=== PATIENT | male | born 1940 | race Caucasian/White ===

== ENCOUNTER 2018-04-26 23:07 | Inpatient (IN) ==
[2018-04-26] MEDS ORDERED: ZOFRAN IV ONE (23:55)
[2018-04-26] MEDS ORDERED: LOPRESSOR IV ONE (23:58)
[2018-04-27 00:13] LABS: BASO# 0.01 X1000 (0.0-0.2); BASO% 0.1 % (0.0-0.8); HEMATOCRIT 42.4 % (42.0-52.0); HEMOGLOBIN 13.6 g/dL (14.0-18.0); IMM GRAN# 0.07 X1000 (0.0-0.04); IMM GRAN% 0.6 % (0.0-0.5); LYMPH# 0.56 X1000 (1.2-3.4); LYMPH% 4.7 % (20.5-51.1); MCH 30.3 PG (27-31); MCHC 32.1 g/dL (33-37); MCV 94.4 FL (81-99); MONO# 0.84 X1000 (0.11-0.59); MPV 11.2 FL (7.4-10.4); NEUT# 10.47 X1000 (1.4-6.5); NEUT% 87.6 % (42.2-75.2); PLT 315 X1000 (130-400); RBC 4.49 XMIL (4.7-6.1); RDW 15.4 % (11.5-14.5); WBC 11.95 X1000 (4.8-10.8)
[2018-04-27] MEDS ORDERED: ROCEPHIN 1 GM in NS 50 ML IV ONE (00:16)
[2018-04-27 00:23] LABS: AGAP 12; ALB/GLOB RATIO 1.4; ALBUMIN 4.3 g/dL (3.5-5.0); ALKALINE PHOSPHATASE 59 U/L (32-122); BUN 44 mg/dL (8-22); CALCIUM 10.3 mg/dL (8.8-10.2); CHLORIDE 91 mmol/L (98-107); CK PROFILE 41 U/L (24-204); COSMO 300; ESTIMATED GFR > 60; GLUCOSE 193 mg/dL (70-104); GOT 17 U/L (10-34); GPT 24 U/L (10-44); LIPASE 41 U/L (13-60); SODIUM 142 mmol/L (136-145); TCO2 39 mmol/L (25-35); TOTAL PROTEIN 7.4 g/dL (6.3-8.3)
[2018-04-27] MEDS ORDERED: NS 1,000 ML IV SCH ×2 (00:30→03:30)
[2018-04-27] MEDS ORDERED: LASIX IV ONE (00:40)
[2018-04-27 01:53] LABS: URINE SOURCE CATH
[2018-04-27 01:56] LABS: BILIRUBIN URINE NEGATIVE (NEGATIVE); BLOOD URINE NEGATIVE (NEGATIVE); COLOR YELLOW; GLUCOSE URINE NEGATIVE (NEGATIVE); KETONE URINE NEGATIVE (NEGATIVE); LEUKOCYTES URINE NEGATIVE (NEGATIVE); NITRITE URINE NEGATIVE (NEGATIVE); PH URINE 6.5; PROTEIN URINE 30 mg/dL (NEGATIVE); SP GRAVITY URINE 1.031; TURBIDITY URINE CLEAR (CLEAR); UROBILINOGEN URINE 2 mg/dL (NORMAL)
[2018-04-27 01:58] LABS: UR EPITHELIAL CELLS <10 /HPF (<10); URINE BACTERIA NEGATIVE /HPF; URINE RBC <10 /HPF (<10); URINE WBC <10 /HPF (<10)
[2018-04-27] MEDS ORDERED: ZOSYN 4.5 GM in NS 100 ML IV ONE (03:10)
[2018-04-27] MEDS ORDERED: DIPRIVAN 1% ONE (04:57)
[2018-04-27] MEDS ORDERED: XYLOCAINE-MPF 2% ONE (04:57)
[2018-04-27] MEDS ORDERED: QUELICIN (DOSE) ONE (04:58)
[2018-04-27] MEDS ORDERED: KEFZOL 1 GM/D5W 0 GM/0 ML IVPB ONE (05:09)
[2018-04-27] MEDS ORDERED: ZOFRAN IV PRN (05:13)
[2018-04-27 05:24] LABS: URINE SOURCE CATH
[2018-04-27] MEDS ORDERED: AMMONIA AROMATIC ONE (05:28)
[2018-04-27 05:32] LABS: BILIRUBIN URINE NEGATIVE (NEGATIVE); BLOOD URINE NEGATIVE (NEGATIVE); COLOR YELLOW; GLUCOSE URINE NEGATIVE (NEGATIVE); KETONE URINE NEGATIVE (NEGATIVE); LEUKOCYTES URINE NEGATIVE (NEGATIVE); NITRITE URINE NEGATIVE (NEGATIVE); PROTEIN URINE NEGATIVE (NEGATIVE); TURBIDITY URINE CLEAR (CLEAR); UR EPITHELIAL CELLS <10 /HPF (<10); URINE BACTERIA NEGATIVE /HPF; URINE RBC <10 /HPF (<10); URINE WBC <10 /HPF (<10); UROBILINOGEN URINE NORMAL (NORMAL)
[2018-04-27] MEDS ORDERED: FENTANYL ONE (05:41)
[2018-04-27] MEDS ORDERED: EPHEDRINE ONE (06:22)
[2018-04-27] MEDS ORDERED: ALBUMIN 25% ONE ×2 (06:31)
[2018-04-27] MEDS ORDERED: VERSED ONE ×2 (06:33→07:40)
[2018-04-27] MEDS ORDERED: ZEMURON ONE (07:05)
--- NOTE | 2018-04-27 07:15 | GENERAL SURGERY CONSULTATION ---
DATE: 04/27/2018 HISTORY OF PRESENT ILLNESS: This is a 78-year-old gentleman with an extensive vascular disease history. He also has a history of bowel obstruction with perforation requiring operation in the past by Dr. Michel in 2016. He has also had mesenteric arterial stents apparently. He presents with profound nausea and vomiting over the last 24 hours with some abdominal distention and discomfort. CT scan showed pneumatosis, free air. Frances catheter and nasogastric tube were attempted to be placed in the emergency department. I was consulted. Prior to this been, he had been in his usual state of health. Apparently, he has not had much in the way of bowel function today but yesterday was normal with no blood. Abdominal pain is not severe. MEDICAL HISTORY: 1. Coronary artery disease, status post coronary artery bypass grafting. 2. Carotid stenosis and occlusion on the left. 3. Mesenteric arterial disease. 4. Chronic edema of the right lower extremity related to saphenous vein harvest. 5. BPH. 6. Congestive heart failure. 7. Dysphagia. 8. Atrial fibrillation. SURGICAL HISTORY: He has had a ventral hernia repair. He has had mesenteric artery stenting. He has had coronary artery bypass x5, saphenous vein harvest bilaterally. He has also had exploratory laparotomy with bowel resection by Dr. Michel in 2016 for a similar process. SOCIAL HISTORY: He does have a history of smoking, denies any current use. He lives at home with his . Uses a walker. FAMILY HISTORY: Reviewed and noncontributory. REVIEW OF SYSTEMS: Ten point negative. PHYSICAL EXAMINATION: Vital Signs: On exam, he is tachycardic in the 110s to 120s. Blood pressures systolics 120s to 140s. Afebrile. General: This is a chronically ill-appearing, cachectic gentleman. HEENT: There is no scleral icterus but there is temporal wasting. No cervical masses. Cardiovascular: Median sternotomy. He is tachycardic, in a regular rhythm. Pulmonary: No increased work of breathing. Abdomen: Distended. There is some tenderness throughout and it is firm. Integument: Warm and dry. Peripheral Vascular: He has chronic ischemic changes of the bilateral lower extremities with edema on the right and in an Unna wrap. Neurologic: Generalized slowing and weakness. Lymphatic: No cervical supra or infraclavicular adenopathy. Musculoskeletal: Muscle atrophy throughout. LABORATORY DATA: White count is 11, hematocrit is 42. Creatinine is 1.0. LFTs are normal. Troponins are 0.014. Urinalysis negative for nitrites and leukocytes. ASSESSMENT/PLAN: I have reviewed the CT scan. He has massive small bowel dilation but no clear transition point. There is a loop of bowel that appears to have pneumatosis in the right upper quadrant and there is free intra-abdominal air. Given these findings, I have recommended emergent operation. We will go to the operating room this morning for an exploratory laparotomy and possible bowel resection, possible ostomy. I discussed with the the possibility of prolonged intubation. I have also discussed the possibility of delayed abdominal closure. We also discussed the possibility that he has a diffuse process which would not be compatible with his ability to maintain nutritional support going forward. We discussed all these findings. They understand and consent. We will go to the operating room. He is on antibiotics. We will get a Frances catheter and we will place a nasogastric tube in the operating room as they have had difficulty here. cc: Niko Winston MD
--- NOTE | 2018-04-27 07:34 | Diag Imaging Result Doc PS360 ---
EXAM: CHEST-PORTABLE 04/26/2018 HISTORY: sob TECHNIQUE: AP portable at 2350 COMMENT: The inspiration is suboptimal and there is a large amount of gas containing-colon and distended stomach elevating the hemidiaphragms. There was a similar appearance on 02/28/2018. There is still some question of free air under the right hemidiaphragm and possibly laterally under the left hemidiaphragm but this has diminished since the previous study. IMPRESSION: Improved pneumoperitoneum. Possible ileus, stable. Electronically signed by Lan Robin 04/27/2018 7:32 AM
--- NOTE | 2018-04-27 08:19 | HISTORY AND PHYSICAL ---
PRIMARY CARE PHYSICIAN: Dr. Aditya Jennings DATE AND TIME: 04/27/2018 at 0300. CHIEF COMPLAINT: Vomiting. HISTORY OF PRESENT ILLNESS: Mr. Page is a 78-year-old elderly male who presented to the ER at 11 p.m. on 04/26/2018. His , who was present at bedside did assist with much of the history of present illness and past medical history, informed me that all day Saturday, the patient had not felt well. He had been nauseated. She states later on in the afternoon that she did try to give him something to eat, though he did have a few episodes of vomiting after this. She denied him having any hematemesis or coffee-ground appearance to his emesis. She also reports as well that the patient's abdomen has had worsening distention, though the patient denies any abdominal pain or pain upon palpation of his abdomen. She states that for a couple of days he had been constipated and had difficulty having a bowel movement. She states that he did eventually have a bowel movement on Saturday, though he did have to strain a lot to do so. The patient as well as his denied him having any melena, hematochezia or melena. The patient states that he has not been able to pass gas since earlier in the day on Saturday, which would be 04/26/2018. The patient denies any headache, dizziness or chest pain. He does report that he occasionally has shortness of breath, though he states this is not of new onset and has not worsened. He denies any cough. He denies any fever, body aches or chills. He also denies any dysuria or urinary frequency. The patient has been treated by Dr. Carbajal recently for some right lower extremity swelling. The patient does have some known vascular disease and has had problems with his right lower extremity swelling since he has had vessels grafted from this extremity for his coronary artery bypass graft. The patient did have a wrap on his right lower extremity from just inferior to his knee all the way down just proximal to his toes. Though upon assessment, the patient's toes did appear to be somewhat purple in color. He did have delayed capillary refill at approximately 7 to 8 seconds. The patient denied any decreased sensation and did still have movement in his toes, though after loosening the Presley wrap up some, the patient's color in his toes as well as his capillary refill did improve. It did improve from approximately 7 to 8 seconds to 4 seconds. The patient also does have a right shoulder immobilizer in place as well. Unfortunately, he was just in the ER by Dr. Jennings on secondary to a fall and was diagnosed with fracture of the humeral head with inferior subluxation. The patient at this time does have pulse, motor and sensory intact in his right hand distal to his immobilizer. Upon further questioning, it is noted the patient has had a history of 5-vessel coronary artery bypass graft as well as paroxysmal atrial fibrillation and does have a history of having stenting of the superior mesenteric artery. The patient also does take anticoagulant of Pradaxa. His reports that he had his last dose on Saturday morning, 04/26/2018. Upon evaluation in the ER, the patient was noted to be ill appearing. He does have a distended abdomen noted. This is slightly firm to palpation. He did have some bowel sounds present, though these were hypoactive. The patient, surprisingly, was not tender in his abdomen upon palpation. He was still experiencing some occasional nausea, though has not had any vomiting episodes since arriving to the ER. A chest x-ray was performed in the ER, and the lungs themselves did appear to be clear and did not see any signs of pneumonia, pulmonary vascular congestion or pulmonary edema at this time, though it was apparent that he did have some distended loops of bowel present. Secondary to this, they did perform a CT of abdomen and pelvis which did show that the patient had free air in the peritoneal cavity highly suspicious for bowel perforation. He does have pneumatosis in the right upper quadrant suggesting acute bowel ischemia. There was also mention of some moderate free fluid in the pelvis as well. He did also have a small right pleural effusion as well as infiltrates in the posterior lower lobes and early pneumonia versus aspiration could not be excluded. Please see full CT report for further detailed findings. The patient does have mildly elevated white blood cell count at 11,950. His lactate was elevated at 2. His ProBNP was also elevated at 9433, though at this time the patient does not appear to be in any fluid overload or CHF exacerbation. His oral mucosa was actually slightly dry. He did not have any JVD present. Though his lung sounds were diminished in bilateral bases, he did not have any crackles noted. He has denied any chest pain or current shortness of breath. He does not have any peripheral edema present. Given his abnormal CT findings, Dr. Winston was immediately consulted. Dr. Winston did come in at the bedside and examined and spoke to the patient and does plan to take him for surgery this morning for an exploratory laparotomy with possible bowel resection and ostomy. The patient will be placed in the ICU after surgery for close monitoring. REVIEW OF SYSTEMS: A 14-point review of systems was conducted with the patient, and all were negative except for pertinent positives mentioned in the above HPI. PAST MEDICAL HISTORY: 1. Paroxysmal atrial fibrillation. 2. Ischemic heart disease. 3. Congestive heart failure. 4. Essential hypertension. 5. Hyperlipidemia. 6. Idiopathic pneumatosis intestinalis. 7. Dysphagia. PAST SURGICAL HISTORY: 1. Subtotal colon resection. 2. Stenting of the superior mesenteric artery. 3. Cholecystectomy. 4. Inguinal hernia repair. 5. Five-vessel coronary artery bypass graft. SOCIAL HISTORY: The patient is a former smoker. His said he smoked many, many years ago and smoked for a period of approximately 20 years. There is no other known alcohol or illicit drug use. He is and lives with his . She was present at bedside during my examination. The patient does use assistive devices with ambulation. FAMILY HISTORY: Known for both his mother and father having a history of arthritis, but other than this, there is no other known past medical history in his parents, though he does have 2 other brothers who both have had a history of coronary artery bypass graft. ALLERGIES: The patient has no known allergies. HOME MEDICATIONS: 1. Vitamin D3 1000 units p.o. b.i.d. 2. Vitamin B12 1000 mcg p.o. b.i.d. 3. Pradaxa 150 mg p.o. b.i.d. 4. Proscar 5 mg p.o. daily. 5. Lasix 40 mg p.o. p.r.n. as directed. 6. Boost nutritional drink 237 mL p.o. b.i.d. 7. Multivitamin with minerals 1 p.o. daily. 8. Protonix 40 mg p.o. daily. 9. Ranexa 1000 mg p.o. b.i.d. 10.Flomax 0.4 mg p.o. daily. 11.Ultram 50 mg p.o. q.6 hours p.r.n. 12.CoQ-10 50 mg p.o. b.i.d. DIAGNOSTIC DATA: White blood cell count is 11,950, hemoglobin 13.6, hematocrit 42.4, platelet count 315. Sodium is 142, potassium 5, chloride 91, serum bicarb is 39, BUN is 44, creatinine 1, GFR greater than 60, glucose is 193, calcium 10.3. Liver function tests were within normal limits. CK is 41. Troponin is 0.014. ProBNP is 9433. Lipase is 41. Plasma lactate is 2. Urinalysis was obtained via catheter and was positive for protein, though was negative for glucose, ketones, blood, nitrites, leukocytes, white blood cells or bacteria. EKG did show sinus tachycardia with occasional premature atrial complexes. This is at a rate of 115 with a QTC of 520. Chest x-ray did not appear to have any acute chest abnormalities, though he did have a distended bowel that was noted. CT of abdomen and pelvis did show free air in the peritoneal cavity highly suspicious for bowel perforation. He also had pneumatosis in the right upper quadrant suggesting acute bowel ischemia. He also did have small right pleural effusion, infiltrates in the posterior lower lobes, suspicious for early pneumonia versus aspiration. Please see CT report for full detailed findings. PHYSICAL EXAMINATION: VITAL SIGNS: Temperature is 97.9, heart rate 115, blood pressure 94/68, oxygen saturation is 93% on nasal cannula at 2 L, respirations were 20. GENERAL: Mr. Page is a very pleasant elderly, frail and ill-appearing 78-year-old male. He was resting on the ER stretcher. He was awake, alert and able to answer questions appropriately. HEENT: Head is atraumatic and normocephalic. Pupils are equal, round and reactive to light, were 3 mm bilaterally and brisk. Conjunctivae were pink. Oral mucosa was slightly dry. Oropharynx was clear, except the patient did have a small amount of blood noted to his right posterior pharynx, though just prior to my examination, they had attempted an NG tube. This is likely what this presence of blood is related to. NECK: Supple. Trachea midline. There is no JVD noted. CARDIOVASCULAR: The patient has S1 and S2 present. There were no murmurs, gallops or rubs appreciated, with a tachycardic rate that is regular. On the bedside monitor, the patient's rate is elevated to the 100s and low 110s. Though he does appear to have a regular rate, the R to R is regular. There does appear to be P waves for the QRS. PULMONARY: The patient does have symmetrical chest expansion bilaterally. Lung sounds in bilateral upper conroy were clear to auscultation, though he is diminished in bilateral bases. ABDOMEN: Slightly firm. It is distended, though was surprisingly nontender upon palpation. Bowel sounds were present though were hypoactive. EXTREMITIES: No clubbing or edema noted. Upon my examination, the patient does have a wrap noted to his right lower extremity that he has had placed by home health that has been assisting with some swelling in this extremity, though the patient did have some purple discoloration noted to the toes of his right foot. We did loosen the patient's wrap, and once done so, the patient's discoloration as well as capillary refill did improve. Prior to this, it was 7 to 8 seconds. Since loosening his wrap, it is approximately 4 seconds. The patient does have motor and sensation intact in this extremity as well. All other extremities were within normal limits. Radial pulses were 2+ bilaterally. Pulse in his left lower extremity was difficult to palpate though was easily obtainable with venous Doppler. NEUROLOGICAL: The patient is alert and oriented to person, place and time. He was able to answer questions appropriately and follow commands. He does not appear to have any focal neurological deficits noted at this time. ASSESSMENT AND PLAN: 1. Possible bowel perforation. The patient's CT of abdomen and pelvis did show free air in the peritoneal cavity that was highly suspicious for bowel perforation. He also had pneumatosis in the right upper quadrant suggestive of possible acute bowel ischemia. Dr. Winston with Surgery has been consulted. He is planning to take the patient to surgery within the next hour or so. The patient has remained n.p.o. The ER nurse did attempt twice to place an NG tube which was unsuccessful. The patient has not had any episodes of nausea or vomiting at this time, and we have decided to hold off with further attempts until the patient goes to surgery. We have placed him with antibiotic coverage of Zosyn. We will provide some gentle fluid hydration. Blood cultures have been obtained, and we will await further recommendations from Dr. Winston and follow along closely. 2. History of paroxysmal atrial fibrillation. At this time, the patient does appear to be in sinus tachycardia, though we will continue to monitor closely. 3. History of coronary artery disease, status post coronary artery bypass graft. 4. History of congestive heart failure, though the patient at this time does not appear to be in exacerbation, though we will monitor his fluid volume status closely with strict intake and output. 5. History of hypertension. 6. Possible pneumonia. It was noted on the patient's CT that he did have a small right pleural effusion. There were infiltrates in the posterior lower lobes, and an early pneumonia versus aspiration could not be excluded. Given the possibility of aspiration, we will continue with antibiotic treatment as mentioned above with Zosyn. Blood cultures have been obtained. We will continue to follow. The patient has been placed in the ICU for close monitoring. We will repeat a CBC and BMP later on this morning as well as an echocardiogram. GI prophylaxis provided with Protonix. We will defer DVT prophylaxis to Surgery Team. Further orders and recommendations pending hospital course, diagnostic studies and physician evaluation. Critical care time for this patient was approximately 70 minutes. Dictated by CHANA Woodruff for Romel Love MD Addendum: Patient seen and examined by myself. Agree with CHANA note. It reflects my assessment and plan. Patient is being admitted to hospital for possible bowel perforation. Surgery has been notified and will be coming to see this patient quickly. Will start IV antibiotics. Will place him on NPO and continue to monitor this patient closely. cc: Romel Love MD MTDD
[2018-04-27] MEDS ORDERED: NS 1,000 ML ONE (08:27)
[2018-04-27] MEDS ORDERED: DIPRIVAN 1% 1,000 MG/100 ML BOTTLE IV SCH (08:30)
[2018-04-27 08:39] LABS: ALLEN TEST YES; BE 10.4 mmoll (-3.0-3.0); BLOOD TYPE ARTERIAL; METHB 1.1 % (0.0-1.5); O2(CT) 17.1 mL/dL (15.0-23.0); O2HB 96.3 % (95.0-99.0); PO2(98.6) 118 mmHg (60-100); SAMPLE BLOOD; SAO2 98.4 % (95.0-100.0); SRATE 14 BPM; THB 12.5 g/dL (11.5-17.4); TVOL 500 mL; pH(98.6) 7.45 (7.35-7.45)
[2018-04-27 08:40] LABS: MODALITY VENTILATOR; PCO2(98.6) 52 mmHg (35-45)
[2018-04-27] MEDS ORDERED: LR 500 ML ONE (08:41)
--- NOTE | 2018-04-27 08:48 | Diag Imaging Result Doc PS360 ---
EXAM: CT ABD/PELVIS W/IV CONT ONLY 04/27/2018 HISTORY: abdominal distension, tenderness TECHNIQUE: This exam was performed using automated exposure control, adjustment of mA or kV according to patient size, and/or use of iterative reconstruction technique. COMMENT: The current examination is compared with the previous study of 11/20/2016. There is apparent atelectasis in both lower lobes particularly posteriorly. This is worse than on the previous examination. There may be some bronchiectasis. There is a small amount of free air in the abdomen. This is much worse at the time the previous examination and has been seen on previous chest radiographs including the study of 02/28/2018. The stomach is markedly distended. This is worse than on the previous study. There is extensive atherosclerotic calcification in the aorta which is not distended. The inferior mesenteric artery is patent. The celiac artery is patent although with some calcification. There is opacification of the ostium of the superior mesenteric artery with a stent. It is not clear that this is patent, however the portion of the artery directly distal to the stent is opacified with contrast. There are multiple fluid and gas distended loops of small bowel and colon. The descending colon is relatively normal in caliber. The spleen adrenal glands and pancreas are stable in appearance. There is a large cyst arising from the right kidney. There is no evidence of hydronephrosis stones or masses and the kidneys are similar in appearance to the previous noncontrast study. The liver is displaced posteriorly and somewhat compressed by the distended bowel loops but there is no evidence of acute abnormality. This appearance was also present previously although it is somewhat more dramatic on today's study. There is solid stool throughout much of the colon particularly the left colon. There is no definite evidence of mucosal fold thickening in the massively distended small bowel loops. There is a loop of small bowel present in the upper abdomen slightly to the right of the midline which appears to be surrounded by fibrin strands surrounding gas extending from loop to loop. This may indicate a chronic pneumatosis/interstitial emphysema. The esophagus contains fluid. The possibility of reflux cannot be excluded. Pelvis: The regional skeleton is stable in appearance. There is some free fluid in the rectovesical pouch as there was at the time the previous study. IMPRESSION: 1. From the images and reports from previous imaging going back to the examination of 11/20/2016 and plain radiographs as recent as 02/28/2018, the pneumoperitoneum is apparently chronic and has been worse in the past. There is actual constipation in the left colon. There are however massively distended small bowel loops indicating chronic obstruction, apparently partial. The site of obstruction is probably in the subphrenic region in the right upper quadrant. This is the loop associated with pneumatosis. 2. There is bibasilar atelectasis of versus pneumonia, and given the fluid in the esophagus the possibility of aspiration is suggested. Aspiration has been previously documented on modified barium swallow on 02/14/2018. Electronically signed by Lan Robin 04/27/2018 8:46 AM
--- NOTE | 2018-04-27 08:53 | Diag Imaging Result Doc PS360 ---
EXAM: CHEST-1 VIEW 04/27/2018 HISTORY: ETT,cvl placement TECHNIQUE: AP portable at 0836 COMMENT: There is an NG tube with its tip in the stomach. There is an endotracheal tube with its tip at the thoracic inlet. There is pneumoperitoneum as there has been on previous studies. There is atelectasis versus pneumonia in both lower lobes. This is particularly notable in the right lower lobe. IMPRESSION: Pneumoperitoneum. Bibasilar atelectasis versus pneumonia. Electronically signed by Lan Robin 04/27/2018 8:51 AM
--- NOTE | 2018-04-27 08:56 | OPERATIVE NOTE ---
PROCEDURE DATE: 04/27/2018 PREOPERATIVE DIAGNOSES: 1. Small-bowel obstruction. 2. Pneumoperitoneum. POSTOPERATIVE DIAGNOSIS: Cecal volvulus causing small-bowel obstruction. PROCEDURES PERFORMED: 1. Exploratory laparotomy. 2. Small-bowel resection. 3. Ileocecectomy. 4. Resection of abdominal wall mesh. 5. Right femoral vein triple-lumen catheter. ANESTHESIA: General. ESTIMATED BLOOD LOSS: 100 mL. SPECIMENS: 1. Terminal ileum. 2. Cecum. INDICATIONS: A 78-year-old gentleman who had an exploratory laparotomy with bowel resection and primary anastomosis approximately 3 years ago. He presented with free air at that time. OPERATIVE FINDINGS: 1. There was massively dilated small-bowel and stomach all the way to the terminal ileum. The cecum was dilated. There was pneumatosis, mostly within the ileum and distal small-bowel. There was no evidence of free perforation and there was no succus or contamination within the abdomen. The cecum was dilated and there appeared to be a transition point in the ascending colon. 2. This final specimen length of small-bowel was 100 cm in the second specimen. The cecum and ascending colon were included in that. OPERATIVE NOTE: Risks, benefits, and alternatives were discussed with the patient and his . He consented to the procedure. He was taken to the operating room emergently. His previous midline incision was incised after he was prepped and draped with chlorhexidine in the usual fashion. We carried this down through subcutaneous tissue and the fascia. There was mesh in the upper midline that we excised and entered the abdomen. There was free air noted. We eviscerated the small-bowel. There was no significant intra-abdominal adhesions but it became apparent that the cecum was in the right upper quadrant of the abdomen. We reduced this. We systematically ran the bowel multiple times. All the small-bowel was distal but this did encompass quite a large area. We resected this. After we passed this specimen off, we did this with a JEREMY blue load stapler, we divided the mesentery with the LigaSure device. We elected with this part of a second resection to resect the ascending colon given the fact that this was felt to be the source of obstruction and we passed this off. We made an ileostomy site in the right lower quadrant through the rectus muscle and brought the ileum out, and then removed a corner of the staple line and decompressed the bowel distally through this. Almost a liter of succus was expressed. We then, in a retrograde fashion, decompressed the stomach through a nasogastric tube. We irrigated the abdomen copiously, noted hemostasis, placed the small-bowel back, ensured that there was no twisting of his ileostomy. At this point, we began closing the fascia with a #1 running looped PDS suture. We did use #2 Prolene retention sutures. His abdomen closed well. We irrigated the superficial wound. We did change our gloves prior to wound closure and reapproximated the skin with surgical clips. We made sure there was no bowel incorporated with any of our sutures prior to abdominal closure. Dressing was applied. At this point, we removed the staple line from his ileostomy and matured it with interrupted 3-0 Vicryl sutures in [place] fashion. Ostomy appliance was applied. Counts were correct for this portion of the operation. His blood pressures were quite labile during the case, requiring vasopressors and fluid resuscitation. He was oliguric during it. We elected to place a central line at the conclusion of the case. Prepped his right groin and draped it. A triple-lumen 7-[place] catheter was selected. The femoral artery pulse was palpated. We accessed the vein medial to this. The wire threaded easily. Skin jania was made. The tract was dilated. A pre-flushed triple-lumen catheter was advanced and secured with a silk suture. Dressing was applied. All ports withdrew blood and flushed without resistance. He was transferred, intubated, back to the ICU. I spoke with the family. cc: Niko Winston MD [facility]
[2018-04-27] MEDS: ZOSYN 2.25 GM in NS 50 ML IV SCH ×3 (10:00→20:37)
[2018-04-27] MEDS: PROTONIX IV SCH (10:00)
[2018-04-27] MEDS: SODIUM CHLORIDE 0.9% INJ SCH (10:00)
[2018-04-27 10:46] LABS: BASO# 0.01 X1000 (0.0-0.2); BASO% 0.1 % (0.0-0.8); HEMATOCRIT 36.4 % (42.0-52.0); HEMOGLOBIN 11.4 g/dL (14.0-18.0); LYMPH# 0.73 X1000 (1.2-3.4); LYMPH% 9.8 % (20.5-51.1); MCH 30.4 PG (27-31); MCHC 31.3 g/dL (33-37); MCV 97.1 FL (81-99); MONO# 0.72 X1000 (0.11-0.59); MONO% 9.6 % (1.7-9.3); MPV 11.1 FL (7.4-10.4); NEUT# 6.02 X1000 (1.4-6.5); NEUT% 80.5 % (42.2-75.2); PLT 350 X1000 (130-400); RBC 3.75 XMIL (4.7-6.1); RDW 15.3 % (11.5-14.5); WBC 7.48 X1000 (4.8-10.8)
[2018-04-27 11:08] LABS: AGAP 18; BUN 48 mg/dL (8-22); CHLORIDE 92 mmol/L (98-107); COSMO 290; CREATININE 0.9 mg/dL (0.7-1.2); ESTIMATED GFR > 60; GLUCOSE 129 mg/dL (70-104); SODIUM 138 mmol/L (136-145); TCO2 28 mmol/L (25-35)
[2018-04-27] MEDS: LR 1,000 ML IV SCH ×2 (11:52→18:21)
[2018-04-27] MEDS ORDERED: NS 500 ML IV ONE ×3 (12:46→22:34)
[2018-04-27] MEDS: LEVOPHED 8 MG in D5 1/2 NS 250 ML IV SCH ×2 (13:28→20:37)
--- NOTE | 2018-04-27 13:46 | PROGRESS NOTE ---
DATE: 04/27/2018 This is a 78-year-old patient Dr. Aditya Jennings he was admitted last night. Presented to the ER 11 p.m. on 04/26/2018, apparently all day yesterday on Saturday he had not felt well, was nauseated, later in the afternoon she tried to give him something to eat had a few episodes of vomiting after this. Denied having any hematosis a or coffee-ground appearance in the emesis. She reports that patient's abdomen was worsening distention and patient denied any abdominal pain on palpation his abdomen. Had a couple days difficulty with his bowel movement. He has been treated by Dr. Carbajal recently for right lower extremity swelling. He does have known peripheral vascular disease. PAST MEDICAL HISTORY: 1. Paroxysmal atrial fibrillation. 2. Ischemic heart disease. 3. Congestive heart failure. 4. Essential hypertension. 5. Hyperlipidemia. 6. Idiopathic pneumatosis intestinalis. 7. Dysphagia. PAST SURGICAL HISTORY: 1. Subtotal colon resection. 2. Stenting of the superior mesenteric artery, mesenteric ischemia. 3. Cholecystectomy. 4. Inguinal hernia repair. 5. Five-vessel coronary bypass graft. 1. He apparently was taken from the emergency room to surgery. CT of the abdomen and pelvis did show free air in the peritoneal cavity. Dr. Winston reported that it look like it was a volvulus and sigmoid colon and was causing pressure in the small bowel with perforation so he did remove part the small bowel and has a colostomy. 2. History of paroxysmal atrial fibrillation and so he is on a monitor. 3. He is on the ventilator and sedated at this time. 4. Congestive heart failure history. 5. History of hypertension. 6. Possible pneumonia, possible aspiration pneumonia. EXAM: At the present temperature is 98.2 degrees, pulse 100, respirations 14, blood pressure 86/53. Pupils are equal. No distended neck veins.Lungs: Anterolateral were clear. He is intubated. Abdomen: Negative bowel sounds. Surgical scar, the gauze are dry. No pedal edema. Urine output has been around 20 mL/h so we are given quite a bit of fluid lactated Ringers. ASSESSMENT AND PLAN: 1. Resection of the terminal ileum, had exploratory laparotomy and has an ileocecectomy and resection of abdominal wall mesh. Continue broad-spectrum antibiotics. 2. On the ventilator, will wean as able. Pulmonary is involved. 3. History of coronary artery disease status post coronary bypass, aware. No sign of active ischemia. 4. History of congestive heart failure. Looking back, he had a catheterization done back in April 2014 and his left ventricular function at that time ejection fraction estimated about 45 to 50 percent. He did have severe calcific occlusive coronary artery disease, left main and right coronary artery proximally so has known multivessel coronary disease. I reviewed his current orders. He is getting lactated Ringer's at 125 mL an hour. I gave him a 400 mL bolus of normal saline to try to help with the urine output. He is on Zosyn 2.25 g IV q.6 and he got 1 dose of ceftriaxone before surgery. We are going to send a sputum for culture. His hematocrit postop was 36, hemoglobin 11 and his creatinine is 0.9. Sodium 138, potassium 5.0, chloride 92, BUN 48. I have explained to the family that he has multiple morbidities and he is very sick at this point with underlying peripheral vascular disease, coronary artery disease and apparently major surgery and at present vent dependent. cc: MD Laura Chance MD
--- NOTE | 2018-04-27 14:33 | CARDIOLOGY CONSULTATION ---
DATE: 04/27/2018 HISTORY OF PRESENT ILLNESS: Patient is status post abdominal surgery, change in electrocardiogram. Cardiology was consulted. Baseline electrocardiogram revealed normal sinus rhythm, right bundle branch block, right ventricular hypertrophy. Postoperative electrocardiogram revealed normal sinus rhythm, right bundle branch block with left axis deviation. No ST-T changes to suggest any acute changes. Cardiac enzymes unremarkable. Patient is intubated postoperatively; history was obtained from the chart. The patient is intubated, sedated. Patient is admitted with bowel obstruction. A CT scan of his abdomen revealed pneumoperitoneum, massively dilated small bowel, chronic obstruction, bilateral lid atelectasis versus pneumonia in the lungs, aspiration suggested. The patient underwent surgery. Postoperative diagnosis of cecal volvulus causing small bowel obstruction. REVIEW OF SYSTEMS: Could not be obtained from the patient. PAST MEDICAL HISTORY: 1. Paroxysmal atrial fibrillation. 2. Ischemic cardiomyopathy. 3. History of heart failure. 4. Hypertension. 5. Coronary artery disease, status post 5 vessel coronary artery bypass grafting. 6. Cholecystectomy. 7. Stenting of the superior mesenteric artery and mesenteric ischemia in the past. 8. Subtotal colonic resection. 9. Currently the patient also has possible pneumonia. CURRENT MEDICATIONS: Propofol drip, Levophed, Protonix drip, piperacillin, Lasix 40 mg 1 does given. Was also given ceftriaxone, IV fluids. PHYSICAL EXAMINATION: Vital Signs: Blood pressure 106/46. Patient is intubated. Cardiovascular system: First and second heart sounds were heard. There was no S3 gallop. Respiratory system: Anterolateral were clear. ASSESSMENT AND PLAN: 1. Mr. Otis Page is a 78-year-old gentleman with a history of hypertension, congestive heart failure, ischemic cardiomyopathy, coronary artery disease, coronary artery bypass grafting, history of paroxysmal atrial fibrillation, has presented with abdominal bowel obstruction. Underwent surgery today with cecal volvulus as the postoperative diagnosis causing small bowel obstruction. Patient also has had pneumonia, likely aspiration pneumonia. From a cardiac standpoint, no significant change in the electrocardiogram other than the axis. We will monitor along. 2. We will get an echocardiogram to assess cardiac and valvular function. 3. He is immediate postoperative. I have not made any other addition to his medications. 4. For his pneumonia, continue with his antibiotics. 5. He is hypotensive post surgery. He is on Levophed drip. Would recommend continue with the current plan. Thanks for the consult. cc: MD Laura Brooks MD
[2018-04-27 15:20] LABS: URINE SOURCE CATH
[2018-04-27 15:28] LABS: BILIRUBIN URINE NEGATIVE (NEGATIVE); BLOOD URINE LARGE (NEGATIVE); COLOR YELLOW; GLUCOSE URINE NEGATIVE (NEGATIVE); KETONE URINE NEGATIVE (NEGATIVE); LEUKOCYTES URINE NEGATIVE (NEGATIVE); NITRITE URINE NEGATIVE (NEGATIVE); PROTEIN URINE 30 mg/dL (NEGATIVE); SP GRAVITY URINE > 1.050; TURBIDITY URINE HAZY (CLEAR); UR EPITHELIAL CELLS <10 /HPF (<10); URINE BACTERIA NEGATIVE /HPF; URINE RBC TNTC /HPF (<10); URINE WBC <10 /HPF (<10); UROBILINOGEN URINE NORMAL (NORMAL)
[2018-04-27] MEDS: NS 500 ML IV SCH (15:45)
[2018-04-27] MEDS ORDERED: ATIVAN IV PRN (16:18)
[2018-04-27] MEDS ORDERED: ATIVAN 20 MG in NS 190 ML IV SCH (16:30)
[2018-04-27] MEDS: ATIVAN 20 MG in NS 190 ML IV SCH (17:30)
--- NOTE | 2018-04-27 18:49 | CONSULTATION ---
DATE OF CONSULTATION: 04/27/2018 REQUESTING PROVIDER: Dr. Anders Winston. REASON FOR CONSULTATION: Intubated. Possible pneumonia. HISTORY OF PRESENT ILLNESS: This is a 78-year-old male with medical history of idopathic pneumatosis intestinalis, paroxysmal atrial fibrillation, ischemia cardiomyopathy, congestive heart failure, essential hypertension, coronary artery disease, hyperlipidemia, dysphagia and arthritis. He presented to the ER last night with nausea and vomiting. Initial workup in the ER revealed possible bowel perforation with pneumatosis in the right upper quadrant suggestive of possible acute bowel ischemia and possible pneumonia. He has been admitted to the ICU for further evaluation and management. He underwent an emergent surgery early this morning by Dr. Winston, including exploratory laparotomy, small-bowel resection, ileocecectomy, resection of abdominal wall mesh and right femoral vein triple-lumen catheter. At the time of my examination, patient has been transferred back to the ICU. He is intubated and sedated. The patient's brother and aunt are at the bedside. They reported that the patient fell recently on 04/24/2018 and last night when the patient's was feeding him supper, he suddenly complained of severe abdominal pain and he also had nausea and vomiting. PAST MEDICAL AND SURGICAL HISTORY: 1. Idiopathic pneumatosis intestinalis 2. Paroxysmal atrial fibrillation. 3. Ischemic cardiomyopathy. 4. Congestive heart failure. 5. Hypertension. 6. Coronary artery disease status post 5-vessel coronary artery bypass grafting. 7. Hyperlipidemia 8. Dysphagia 9. Arthritis 10. Recent fall on 04/24/2018 with fracture of the humeral head with inferior subluxation 11. Cholecystectomy. 12. Stenting of the superior mesenteric arterial and mesenteric ischemia in the past. 13. Subtotal colonic resection. 14. Inguinal hernia repair. SOCIAL HISTORY: Per H&P, The patient is a former smoker. He smoked about 20 years. He has no alcohol or tobacco use. FAMILY HISTORY: Positive for arthritis and heart disease. ALLERGIES: No known drug allergies. REVIEW OF SYSTEMS: Unable to be obtained. PHYSICAL EXAMINATION: Vital Signs: Temperature 97.9, blood pressure 132/51, pulse 102, respiratory rate 14, oxygen saturation 100% on AC mechanical ventilator with spontaneous rate 14, oxygen FiO2 80%, tidal volume 500, and PEEP 5.0. General: Patient is intubated and sedated. He moves his right upper extremity occasionally, but he is not responsive to verbal stimuli. HEENT: Atraumatic. Trachea midline. Mucosa pink and slightly dry. Respiratory: Lung expansion equal bilaterally. Auscultation revealed diminished breathing sounds bibasilarly. Otherwise, clear . Cardiovascular: Regular rate and rhythm. Gastrointestinal: No bowel sounds noted. The patient had an abdominal surgery done this morning. Dressing around the surgical area is dry and clean. Extremities: No pedal edema. Right lower extremity is covered with dressing from the ankle up to the knee. Toes on the right foot cyanotic and cold to touch. RUE bruising all over. Joints of the fingers enlarged, suggesting severe arthritis. Neurologic: Sedated and unresponsive to verbal stimuli. He did move his left upper extremity at times. ASSESSMENT: This is a 78-year-old male with medical history of idopathic pneumatosis intestinalis, paroxysmal atrial fibrillation, ischemia cardiomyopathy, congestive heart failure, essential hypertension, coronary artery disease, hyperlipidemia, dysphagia and arthritis. He has been admitted to the ICU with possible bowel perforation and possible pneumonia. He underwent an emergent abdominal surgery this morning by Dr. Winston. 1. Acute hypoxemic respiratory failure. 2. Resection of the terminal ileum. 3. Possible pneumonia. 4. Shock status post surgery. PLAN: 1. Continue AC mechanical ventilator and start weaning trials when appropriate. 2. Continue antibiotics, fluid resuscitation and pressors. 3. Start CVP monitoring 4. Follow up with ABG, CBC, BMP and chest x-ray. 5. Consult orthopedic clinic. 6. Continue GI and DVT prophylaxis. 7. Further recommendations pending hospital course. Thank you for the courtesy of this consult. Dictated by CHANA Samson for Valeria Hicks MD cc: CHANA Samson MD M. Neel Roberts, MD [facility]
[2018-04-28] MEDS: LR 1,000 ML IV SCH ×4 (01:00→20:37)
[2018-04-28] MEDS: ATIVAN 20 MG in NS 190 ML IV SCH (03:25)
[2018-04-28] MEDS: ZOSYN 2.25 GM in NS 50 ML IV SCH ×4 (03:29→20:37)
[2018-04-28 04:44] LABS: ALLEN TEST YES; BE 9.8 mmoll (-3.0-3.0); BLOOD TYPE ARTERIAL; HCO3-(ACT) 32.5 mmoll (20.0-26.0); METHB 1.1 % (0.0-1.5); O2(CT) 16.4 mL/dL (15.0-23.0); O2HB 95.6 % (95.0-99.0); PCO2(98.6) 45 mmHg (35-45); PO2(98.6) 93 mmHg (60-100); SAMPLE BLOOD; SAO2 97.8 % (95.0-100.0); SRATE 14 BPM; THB 12.1 g/dL (11.5-17.4); TVOL 500 mL; pH(98.6) 7.49 (7.35-7.45)
[2018-04-28 04:45] LABS: MODALITY VENTILATOR
[2018-04-28] MEDS: LEVOPHED 8 MG in D5 1/2 NS 250 ML IV SCH ×2 (05:06→11:53)
[2018-04-28] MEDS: PROTONIX IV SCH (05:39)
[2018-04-28 06:05] LABS: BASO# 0.01 X1000 (0.0-0.2); BASO% 0.1 % (0.0-0.8); EOS# 0.05 X1000 (0.0-0.7); EOS% 0.4 % (0.0-10.0); HEMATOCRIT 33.8 % (42.0-52.0); HEMOGLOBIN 10.9 g/dL (14.0-18.0); IMM GRAN# 0.04 X1000 (0.0-0.04); IMM GRAN% 0.3 % (0.0-0.5); LYMPH# 0.88 X1000 (1.2-3.4); LYMPH% 6.7 % (20.5-51.1); MCH 29.8 PG (27-31); MCHC 32.2 g/dL (33-37); MCV 92.3 FL (81-99); MONO# 0.97 X1000 (0.11-0.59); MONO% 7.4 % (1.7-9.3); NEUT# 11.22 X1000 (1.4-6.5); NEUT% 85.1 % (42.2-75.2); PLT 292 X1000 (130-400); RBC 3.66 XMIL (4.7-6.1); RDW 15.2 % (11.5-14.5); WBC 13.17 X1000 (4.8-10.8)
[2018-04-28 06:35] LABS: CALCIUM 8.6 mg/dL (8.8-10.2); CREATININE 1.4 mg/dL (0.7-1.2)
--- NOTE | 2018-04-28 07:06 | EKG Report ---
Test Performed on : 04/28/2018 06:49:23 AM Test Reason : post surgery/ cabg Blood Pressure : / mmHG Vent. Rate : 113 BPM Atrial Rate : 113 BPM P-R Int : 122 ms QRS Dur : 130 ms QT Int : 350 ms P-R-T Axes : 048 -78 066 degrees QTc Int : 480 ms Sinus tachycardia. with premature atrial complexes. Left axis deviation Right bundle branch block Inferior infarct , age undetermined Abnormal ECG When compared with ECG of 27-APR-2018 07:19, (Unconfirmed) Questionable change in QRS axis Criteria for Lateral infarct are no longer present T wave inversion no longer evident in Inferior leads Unconfirmed Result
--- NOTE | 2018-04-28 07:35 | EKG Report ---
Test Performed on : 04/26/2018 11:57:53 PM Test Reason : pain Blood Pressure : / mmHG Vent. Rate : 115 BPM Atrial Rate : 115 BPM P-R Int : 134 ms QRS Dur : 138 ms QT Int : 376 ms P-R-T Axes : 056 269 028 degrees QTc Int : 520 ms Sinus tachycardia. with premature atrial complexes. Right bundle branch block , plus right ventricular hypertrophy Abnormal ECG When compared with ECG of 28-FEB-2018 15:06, (Unconfirmed) premature ventricular complexes. are no longer present Unconfirmed Result
--- NOTE | 2018-04-28 07:55 | Diag Imaging Result Doc PS360 ---
EXAM: CHEST-1 VIEW INDICATION: SOB TECHNIQUE: One view COMPARISON: 04/27/2018 FINDINGS: Support tubes and lines are in stable positions. Atelectasis and/or pneumonia at the lung bases, particularly on the right, is stable. No new consolidation is identified. Cardiac silhouette is stable. There is stable pneumoperitoneum. IMPRESSION: Stable chest. Electronically signed by Natanael Whitley 04/28/2018 7:53 AM
[2018-04-28] MEDS: MORPHINE IV PRN ×2 (08:32→12:36)
[2018-04-28 08:41] LABS: BANDS 22 % (0-1); LYMPHS 10 % (21-51); SEGS 64 % (42-75)
--- NOTE | 2018-04-28 09:42 | EKG Report ---
Test Performed on : 04/27/2018 07:19:35 AM Test Reason : a fib Blood Pressure : / mmHG Vent. Rate : 101 BPM Atrial Rate : 101 BPM P-R Int : 136 ms QRS Dur : 142 ms QT Int : 402 ms P-R-T Axes : -01 146 -18 degrees QTc Int : 521 ms Sinus tachycardia. with premature atrial complexes. with aberrant conduction. Right bundle branch block Lateral infarct , age undetermined T wave abnormality, consider inferior ischemia Abnormal ECG When compared with ECG of 26-APR-2018 23:57, (Unconfirmed) Questionable change in QRS axis Lateral infarct is now present T wave inversion now evident in Inferior leads Unconfirmed Result
--- NOTE | 2018-04-28 13:37 | Diag Imaging Result Doc PS360 ---
EXAM: ELBOW COMPLETE RIGHT INDICATION: swelling. TECHNIQUE: 3 views COMPARISON: None. FINDINGS: There is a tiny fragmented bone spur at the medial epicondyle. There is also a chronic appearing osseous fragment adjacent to the olecranon process. There is no discrete fracture, dislocation, or significant intrinsic osseous lesion, otherwise. There is significant soft tissue edema around the lower arm and elbow, most prominent laterally. No significant joint effusion is appreciated. IMPRESSION: Soft tissue edema as described. No definite acute osseous abnormality by plain radiograph. Electronically signed by Natanael Whitley 04/28/2018 1:35 PM
--- NOTE | 2018-04-28 13:40 | Diag Imaging Result Doc PS360 ---
EXAM: HIP W/PELVIS BILAT 2 VIEWS INDICATION: Fall. TECHNIQUE: 5 views COMPARISON: None. FINDINGS: A right femoral central line is in place. There are skin alfred projecting over the pelvis on the right. There are mild degenerative changes at the acetabular roofs bilaterally. There is no discrete fracture, dislocation, or significant intrinsic osseous lesion, otherwise. The hip joint spaces appear to be preserved. There is atherosclerotic calcification noted incidentally. IMPRESSION: Mild degenerative changes but no evidence of acute osseous abnormality by plain radiograph. Electronically signed by Natanael Whitley 04/28/2018 1:37 PM
--- NOTE | 2018-04-28 13:41 | ECHO REPORT ---
ORDER DATE: 04/27/2018 2D ECHOCARDIOGRAM: ECHOCARDIOGRAPHIC MEASUREMENTS: 1. Interventricular septum 1.2. 2. Left ventricular posterior wall 1.2. 3. Diastolic diameter 4.1. 4. Left atrium 4.4. 5. Aorta 3.8. SUMMARY OF 2-DIMENSIONAL IMAGIN. Technically suboptimal study. Poor acoustic window. Patient is on the ventilator. Heart rate varied from 110 to 120. Normal left ventricular cavity size. Estimated ejection fraction of 40%. 2. Aortic valve leaflets are sclerosed, trileaflet. Mitral valve was normal. Tricuspid valve was normal. Pulmonic valve not well visualized. Peak velocity across the aortic valve was less than 2 m/sec. There is no aortic stenosis. There is aortic sclerosis. There is no aortic regurgitation. 3. There is mild pulmonary regurgitation. Mild mitral regurgitation. Mild tricuspid regurgitation. 4. There was moderate mitral annular calcification. 5. Tachycardia could overestimate the left ventricular systolic function. I would recommend LV function assessment when his heart rate is better. 6. There is no pericardial effusion. cc: MD Romel Brooks MD M. Neel Roberts, MD
--- NOTE | 2018-04-28 13:42 | GENERAL SURGERY PROGRESS NOTE ---
DATE: 04/28/2018 SUBJECTIVE: Remains on the ventilator, hemodynamically requiring some vasopressor support. He did get some fluids overnight, which has improved. I do suspect he is dry. CVP is low. He has had a lot of insensible loss. OBJECTIVE: Abdomen: Ostomy pink and viable. Output: Urine output has been marginal but improving with his fluid. DIAGNOSTIC STUDIES: White count 13, hematocrit 33. ABG 7.49, 45, 93, 32. I reviewed his postoperative chest x-ray. Creatinine is up to 1.4, glucose 199. ASSESSMENT AND PLAN: This is a 78-year-old gentleman status post bowel resection with ileocecectomy, quite ill. We will continue his critical care of respiratory support, fluid resuscitation, vasopressor support, nasogastric tube decompression. I would hold off any enteral feeding at this point. cc: MD Laura Easley MD
--- NOTE | 2018-04-28 13:57 | CONSULTATION ---
DATE OF CONSULTATION: 04/28/2018 HISTORY OF PRESENT ILLNESS: This is a 78-year-old male who presented to the emergency department last night with nausea and vomiting. The family reported that he had fallen and landed on his right side injuring his right arm on 04/24/2018. He was seen in the ER for that visit, and it was indicated that he had a proximal humerus fracture. They put him in a sling and sent him home. During this emergency department visit, there was suggestion of a possible acute bowel ischemia with some possible pneumonia. The patient was admitted to the ICU for evaluation and treatment. The patient underwent surgery by Dr. Winston that included exploratory laparotomy, small-bowel resection, and ileocecectomy, and resection of abdominal wall mesh and a right femoral vein triple-lumen catheter placement. The patient is intubated and in the ICU. PAST MEDICAL HISTORY AND SURGICAL HISTORY FROM RECENT RECORDS AND FAMILY HISTORY: 1. Idiopathic pneumatosis intestinalis. 2. Paroxysmal atrial fibrillation. 3. Ischemic cardiomyopathy. 4. CHF. 5. Hypertension. 6. CAD with bypass grafts. 7. Hyperlipidemia. 8. Dysphagia. 9. Arthritis. 10. The recent fall on 04/24/2018 with humeral head fracture. 11. Cholecystectomy. 12. Mesenteric stents. 13. Colon resection. 14. Inguinal hernia repair. SOCIAL HISTORY: Per history of present illness and family. The patient is a former smoker. He smoked for about 20 years. He has no alcohol or drug use to my knowledge. FAMILY HISTORY: Positive for arthritis and heart disease. ALLERGIES: There are no known drug allergies. REVIEW OF SYSTEMS: Unable to obtain at this time. PHYSICAL EXAMINATION: General: The patient is intubated and currently sedated. Vital Signs: Temperature 98.6 degrees, pulse rate 119, respiratory rate 17, blood pressure 96/60. Arterial line blood pressure is 93/67. CVP is 3, oxygen is 100%. The patient is 144 pounds. General: Patient is intubated, sedated. He moves his right upper and right lower extremity and is nonresponsive to verbal stimuli. HEENT: Atraumatic. Trachea is midline. Mucosa is pink and dry. Respiratory: There is equal chest expansion rise and fall. Cardiovascular: There is some tachycardia. Gastrointestinal: There is abdominal tenderness and grimacing with palpation. There are decreased bowel sounds. There is abdominal dressings that are clean and dry. Extremities: Right upper extremity, there is notable bruising to the right upper arm near the shoulder. There is good radial pulse. There is good capillary refill. There is [id number] swelling to the right elbow. There is good range of motion. There is grimacing with palpation of the elbow. Right lower extremity, there is some mild edema to right lower extremities. There are good pedal pulses. There is good range of motion about the knee with some crepitus. There is good range of motion about the hip. There is grimacing with palpation of the right hip. ASSESSMENT: 1. Right proximal humeral fracture. 2. Right hip pain. 3. Right elbow swelling. PLAN: I will plan on going ahead and obtaining another x-ray of the right elbow. I will go ahead and x-ray the right hip as well and get some plain films. The shoulder can remain in a sling and swath and will re-x-ray in about a week or so. We will await x-rays and follow up with you from there. Thanks again for the consult. Dictated by CHANA Ford for Natanael Stanford MD cc: CHANA Ford MD M. Neel Roberts, MD
[2018-04-28] MEDS: NS 500 ML IV SCH (15:30)
--- NOTE | 2018-04-28 17:25 | PROGRESS NOTE ---
DATE: 04/28/2018 SUBJECTIVE: Mr. Pgae appears to be resting comfortably. He is requiring mechanical ventilation. Arterial blood gases demonstrated a pH of 7.49, pCO2 45, PO2 93, and an O2 saturation of 97% on assist control with a rate of 14, FiO2 40%, tidal volume 500, and PEEP of 5. Chest x-ray demonstrated a pneumonia in the right base. Throughout the course of the day they have gradually been able to reduce the Levophed. Systolic blood pressures are in the range of 100- 105, whereas his diastolic blood pressures are in the 40s. OBJECTIVE: Vital signs: Temperature 99.1 degrees, pulse 112, respiratory rate 16, BP 101/42. CV: Tachycardic. Regular S1, S2. Lungs: Crackles in the right base. Abdomen: Soft, nontender, with active bowel sounds. LABS: Various laboratory studies were obtained. A CBC demonstrated a white count of 13.1, hemoglobin 10.9, hematocrit 33.8, and a platelet count of 292,000. Electrolytes demonstrate the following: Sodium 140, potassium 5.0, BUN 60, creatinine 1.4, glucose 199. ASSESSMENT AND PLAN: 1. Acute respiratory failure with hypoxia requiring mechanical ventilation secondary to aspiration pneumonia. We will continue ventilatory support and attempt to wean him down off the ventilator as feasible. We will continue DuoNeb nebulizer treatments and broad-spectrum antibiotics including Zosyn. 2. 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 We will continue. INCOMPLETE REPORT--DICTATION ENDS HERE. cc: Laura Jennings MD
--- NOTE | 2018-04-28 17:31 | PROGRESS NOTE ---
DATE: 04/28/2018 Mr. Camilo whittington was admitted to [facility] with an acute small bowel obstruction secondary to a volvulus. He underwent successful exploratory laparotomy with small-bowel resection and ileocecectomy. He remains on the ventilator. He seems to be resting comfortably. His O2 saturations demonstrate pH of 7.49, pCO2 45, PO2 93 and O2 saturation 97.8% on assist control, rate 14, FiO2 40%, tidal volume 500 and PEEP of 5. Chest x-ray shows a persistent right lower lobe infiltrate. His blood pressure has been low. They have been trying to wean him off the Levophed. He is still requiring small amounts of Levophed, systolic blood pressures have been in the range of 100 to 105 whereas his diastolic blood pressures have been in the in the 40s. BUN, creatinine have jumped from 0.9 to 1.4. Temperature 99.1 degrees, pulse 112, respiratory rate 16, BP 101/42.CV: Tachycardic regular S1, S2. Lungs: Crackles in the right base. Abdomen: Diffusely tender with hypoactive bowel sounds. ASSESSMENT AND PLAN: 1. Acute respiratory failure with hypoxia secondary to aspiration pneumonia. We will continue ventilatory support, DuoNeb nebulizer treatments and IV antibiotics pending cultures. He is currently on Zosyn. Sputum culture is growing out yeast. 2. Aspiration pneumonia with sepsis. He is tachycardic. He is tachypneic. Renal function has deteriorated. He is requiring pressors. I am going to add Levaquin and continue the Zosyn. 3. Chronic congestive heart failure secondary to systolic dysfunction. We will closely monitor his urine output and fluid intake. Condition guarded. cc: Laura Jennings MD
--- NOTE | 2018-04-28 18:03 | PROVIDER DOCUMENTATION ---
This chart was entered by Vidhi Fitch Scribe, acting as scribe for Gwyn Sahu MD. HPI-Abdominal Pain/GI Problem - General Chief Complaint: Vomiting Stated Complaint: vomiting Time Seen by Provider: 04/26/18 23:19 Source: patient Allergies/Adverse Reactions: Patient Allergies Allergy/AdvReac Type Severity Reaction Status Date / Time No Known Allergies Allergy Verified 02/28/18 18:25 Home Medications: Home Medication List Medication Instructions Recorded Confirmed Last Taken Type Dabigatran [Pradaxa] 150 mg PO BID 04/03/13 04/26/18 02/28/18 07:00 History Multivitamin with Minerals 1 each PO DAILY 05/17/14 04/26/18 02/28/18 07:00 History [Multiple Vitamin] Furosemide [Lasix] 40 mg PO PRN PRN 10/15/17 04/26/18 Unknown History Tamsulosin [Flomax] 0.4 mg PO DAILY 10/15/17 04/26/18 02/28/18 07:00 History Finasteride [Proscar] 5 mg PO DAILY tablet 02/15/18 04/26/18 02/28/18 07:00 Rx Pantoprazole [Protonix] 40 mg PO DAILY@0700 tablet 02/15/18 04/26/18 02/28/18 07:00 Rx Ranolazine [Ranexa] 1,000 mg PO BID #60 tab.er.12h 04/24/18 04/26/18 Unknown Rx Tramadol [Ultram] 50 mg PO Q6H PRN PRN #15 tab 04/24/18 04/26/18 Unknown Rx Cholecalciferol (Vitamin D3) 1,000 unit PO BID 04/26/18 04/26/18 Unknown History [Vitamin D3] Cyanocobalamin (Vitamin B-12) 1,000 mcg PO BID 04/26/18 04/26/18 Unknown History [B-12] Lactose-Reduced Food [Boost] 237 ml PO BID 04/26/18 04/26/18 Unknown History Ubidecarenone [Co Q-10] 50 mg PO BID 04/26/18 04/26/18 Unknown History - History of Present Illness-ABD Nature of Presenting Problems: Pt is 78/M presenting to ED via EMS. Pt c/o nausea and vomiting and "just not feeling well". Pt recently had a fall in which he hurt his R should and now complains of pain in tailbone and lower back, he also tore his rotater cuff and is waiting on surgery. Pt has unrelated manuel wrap on R Leg that he sts is for the swelling that occurs to the leg. patient report hx of bowel resection due to bowel obstruction. Abdominal Pain Onset Location: reports: generalized abdomen Pain Radiation: reports: no radiation Quality of Pain: reports: other (nausea) Severity in ED: reports: moderate Onset/Duration: reports: just prior to arrival Timing: reports: still present Activities at Onset: reports: none Exposure to sick contacts?: No Modifying Factors: improves with: nothing Associated Symptoms: reports: nausea, vomiting. denies: constipation, diarrhea, fever/chills, shortness of breath Last BM: 24 hours ago Dark Stools Present?: reports: none noticed Rectal Bleeding: reports: none Rectal Pain: reports: none Emesis Description: reports: none Bruising or Bleeding Gums?: No Similar Symptoms Previously?: No Recently seen or treated by another doctor?: No Review of Systems - Adult - REVIEW OF SYSTEMS - ADULT Constitutional: reports: no symptoms reported. denies: chills, fever Eyes: reports: no symptoms reported Ears, Nose, Mouth & Throat: reports: no symptoms reported Cardiovascular: reports: no symptoms reported. denies: chest pain, edema Respiratory: reports: shortness of breath. denies: cough Gastrointestinal: reports: abdominal pain, nausea, vomiting. denies: diarrhea Genitourinary: reports: no symptoms reported Musculoskeletal: reports: no symptoms reported Integumentary: reports: no symptoms reported Neurological: reports: no symptoms reported. denies: dizziness/vertigo, headache/migraines Psychiatric: reports: no symptoms reported Past History - Adult - PAST MEDICAL HISTORY-ADULT Review of Records: reports: Old Records Reviewed, Nursing Assessment Review, Medications Reviewed, Social history reviewed & non-contributory. Major Childhood Illnesses: reports: denies history Cardiovascular: reports: CHF, HTN, other (stents) Respiratory: reports: asthma Gastrointestinal: reports: denies history Genitourinary: reports: denies history Musculoskeletal: reports: denies history Neurological: reports: denies history Psychiatric: reports: denies history Endocrine/Immune: reports: denies history Other Conditions: reports: other cancer (skin) - PRIOR SURGERIES/PROCEDURES Surgical/Procedure History: reports: cardiac stent, other (quadruple bypass in 1993) - IMMUNIZATION STATUS Childhood Immunizations: See Nurse Assessment Flu Vaccine: See Nurse Assessment - FAMILY HISTORY Family History: reviewed, not pertinent - SOCIAL HISTORY Smoking: quit greater than 1 year Substance Use: alcohol Alcohol Use Frequency: 3-4 times a week Living Situation: family Physical Exam-General - PHYSICAL EXAM-ADULT Initial Vital Signs Reviewed: Yes - CONSTITUTIONAL General Appearance: alert, moderate distress, thin - EYES Eyes: PERRL/EOMI - HEAD, EARS, NOSE, MOUTH & THROAT HENMT: normocephalic/atraumatic, other (slightly dry mucous membrane) - NECK Neck: non-tender, full range of motion, supple, normal inspection - RESPIRATORY Respiratory: chest non-tender, lungs clear, normal breath sounds - CARDIOVASCULAR Cardiovascular: no edema, JVD, tachycardia (114), systolic murmur - GASTROINTESTINAL (ABDOMEN) Abdominal Exam: distended, guarding, tenderness - MUSCULOSKELETAL Back Exam: normal inspection, no CVA tenderness, no vertebral tenderness Extremity: normal range of motion, non-tender, normal gait, other (Pt has sling on R shoulder. R leg wrapped w/ manuel wrap from foot up to knee area) - SKIN Integumentary: normal color, warm/dry - NEUROLOGIC Neurologic: grossly normal - PSYCHIATRIC Psych/Mental Status: anxious Progress - PLAN OF CARE/RESULTS Progress/Plan/Lab Results: Vital Signs - 8 hr 04/26/18 23:28 04/26/18 23:54 Temperature 97.9 F Pulse Rate 114 H Respiratory Rate 14 Blood Pressure 129/76 O2 Sat by Pulse Oximetry 95 Orders Category Date Time Status Cardiac Monitoring DIRECTED Care 04/26/18 23:36 Active Saline Loc DIRECTED Care 04/26/18 23:33 Active Use Oxygen.Protocol ORDERED Care 04/26/18 23:42 Active NPO Diet 04/26/18 23:33 Active CHEST-PORTABLE [RAD] Stat Exams 04/26/18 23:35 Taken BLOOD CULTURE [BLDCUL] Stat Lab 04/26/18 23:33 Uncollected BNP [PRO B-NATRIURETIC PEPTIDE] Stat Lab 04/26/18 23:48 Received CBC WITH ELECTRONIC DIFF [HEME] Stat Lab 04/26/18 23:48 Results CK PROFILE [SP CHEM] Stat Lab 04/26/18 23:48 Received COMPREHENSIVE METABOLIC PANEL [CHEM] Stat Lab 04/26/18 23:48 Received INFLUENZA SCREEN A/B Stat Lab 04/26/18 23:35 Uncollected LACTATE, PLASMA [CHEM] Stat Lab 04/26/18 23:34 Uncollected LIPASE [CHEM] Stat Lab 04/26/18 23:48 Received TROPONIN T Stat Lab 04/26/18 23:48 Received URINALYSIS W/POSS RFLX CULT [URINALYSIS] Stat Lab 04/26/18 23:33 Uncollected Ondansetron [Zofran] Med 04/26/18 23:55 Discontinued 4 mg IV NOW ONE Oxygen Device Stat Oth 04/26/18 23:36 Active EKG [EKG] Stat Ther 04/26/18 23:34 Ordered patient care, assessment and plan discussed with the attending physician Dr. Jose Antonio Khan and he agree with the plan as documented. Result Diagrams: 04/28/18 04:15 04/28/18 04:15 - REASSESSMENT Reassessment #1 Time Reassessed: 03:04 Status: other (recieved call from radiology free air in peritoneal cavity suspicious for bowel perforation. pneumatosis ruq suggest acute bowel ischemia.) - EKG 1 Time of EKG reading by physician:: 23:59 EKG Read and Signed by:: Gwyn Sahu EKG Interpretation (*Must complete 3 of following elements*): Abnormal (sinus tachycardia with premature atrial complexes, Right bundle branch block plus right ventricular hypertophy. Abnormal ECG) Rate: 115 Rhythm: sinus tachycardia with premature atrial complexes [place]: normal QRS: normal [place] Interval: normal ST Wave: normal - CONSULTS/PCP/HOSPITALIST Notification #1 *Consult/PCP/Hospitalist*: Dr. Romo Time Discussed: 01:24 Consult Disposition: Admit (Pending CT abdomen. Hx, PE and patient care discussed with Dr. Romo.) #2 Consult: Dr. Winston Time Discussed: 01:58 Consult Disposition: other (start Zosyn, LEACH CATHETER, NGT suction. on the way to see him shortly. Hospitalist Dr. Padgett here in the ER aware of the details.) Departure - Departure Date of Disposition Decision: 04/27/18 Time of Disposition Decision: 01:21 DIAGNOSIS: Abdominal distension, Free intraperitoneal air, Ischemia, bowel CHF exacerbation Qualifiers: Heart failure type: unspecified Qualified Code(s): I50.9 - Heart failure, unspecified Vomiting Qualifiers: Vomiting Intractability: unspecified Nausea presence: unspecified Disposition: ADMITTED INPATIENT 09 Certified Medical Emergency: Emergent Condition: Critical - Critical Care Note This patient required my direct & personal management of CC.: No Attestation - Physician/ MAKENZIE Attestation Patient care was provided by Advanced Practice Provider:: No The physician spent face to face time with patient:: Yes Advanced Practice Provider documentation review:: Supervising physician onsite and consulted in the evaluation and care of this patient. The physician did have a face to face encounter with the patient. This chart was documented by the indicated scribe, (Vidhi Fitch, Peyman) and accurately reflects the services I performed and decisions made by me, Gwyn Shah MD, as attested by the provider's signature.
[2018-04-29] MEDS: MORPHINE IV PRN ×4 (02:19→22:18)
[2018-04-29] MEDS: LEVOPHED 8 MG in D5 1/2 NS 250 ML IV SCH (03:23)
[2018-04-29] MEDS ORDERED: NS 0 ML ONE (04:26)
[2018-04-29 04:27] LABS: ALLEN TEST YES; BE 7.6 mmoll (-3.0-3.0); BLOOD TYPE ARTERIAL; HCO3-(ACT) 30.9 mmoll (20.0-26.0); METHB 0.9 % (0.0-1.5); O2(CT) 11.4 mL/dL (15.0-23.0); O2HB 96.6 % (95.0-99.0); PCO2(98.6) 44 mmHg (35-45); PO2(98.6) 123 mmHg (60-100); SAMPLE BLOOD; SAO2 98.4 % (95.0-100.0); SRATE 14 BPM; THB 8.2 g/dL (11.5-17.4); TVOL 500 mL; pH(98.6) 7.47 (7.35-7.45)
[2018-04-29 04:28] LABS: MODALITY VENTILATOR
[2018-04-29] MEDS: LR 1,000 ML IV SCH ×3 (06:07→14:54)
[2018-04-29] MEDS: PROTONIX IV SCH (06:07)
[2018-04-29] MEDS: ZOSYN 2.25 GM in NS 50 ML IV SCH ×4 (06:07→22:17)
--- NOTE | 2018-04-29 07:39 | PROGRESS NOTE ---
DATE: 04/29/2018 SUBJECTIVE: Mr. Page is postoperative day #2 following exploratory laparotomy with small- bowel resection and ileocecectomy. He is still not passing any flatus or having bowel movements. He appears to be resting comfortably this morning. He is still requiring mechanical ventilation. Arterial blood gases demonstrated pH 7.47, pCO2 of 44, PO2 of 123, and an O2 saturation of 98.4. He is currently on assist control with a spontaneous rate of 14, FiO2 of 60%, tidal volume 500, and PEEP of 5. Chest x-ray shows persistent right lower lobe infiltrate. OBJECTIVE: Vital Signs: Blood pressure is ranging from 101 to 125 systolically, whereas his diastolic blood pressures are ranging from 49 to 59. He is down from 10 to 8 mcg/minute of Levophed. Urine output is good, in excess of 1500 mL. Temperature 99.1 degrees, pulse 94, respiratory rate 14, BP 101/51. CV: Regular rate and rhythm. Lungs: Crackles in the right base. Abdomen: Soft, with hypoactive bowel sounds. No rebound or guarding. ASSESSMENT AND PLAN: 1. Acute respiratory failure with hypoxia secondary to aspiration pneumonia with sepsis syndrome. He has been tachycardic and tachypneic. He had a white count in excess of 12,000. He is requiring both ventilatory support as well as intravenous Levophed for blood pressure. Chest x-ray shows a persistent right lower lobe infiltrate. We will continue broad-spectrum antibiotics, including Levaquin and Zosyn. It is encouraging that he is requiring less Levophed to maintain his blood pressure. We will continue broad-spectrum antibiotics, try to wean down off Levophed, and will continue ventilatory support. 2. Acute renal insufficiency. His creatinine has jumped from 0.9 to 1.4. We will continue D5W, and I will recheck a BMP today. 3. History of chronic congestive heart failure secondary to systolic dysfunction. Aware. He does have a longstanding history of congestive heart failure. His most recent echocardiogram demonstrated an ejection fraction of 35% to 40%. We will cautiously monitor him for signs of failure. cc: Laura Jennings MD
--- NOTE | 2018-04-29 08:00 | Diag Imaging Result Doc PS360 ---
CHEST-1 VIEW - 04/29/2018 INDICATION: SOB COMPARISON: 04/28/2018 FINDINGS: Support tubes are stable. There is a lot of gas in the upper abdomen. Lung volumes are critically low as a result of the abdominal distention from fluid and gas containing bowels. There are hazy bibasilar infiltrates probably atelectasis. Heart size is top normal. IMPRESSION: Critically low lung volumes with bibasilar atelectasis from severe bowel issues. Electronically signed by Armin Harrison 04/29/2018 7:58 AM
[2018-04-29] MEDS: ATIVAN 20 MG in NS 190 ML IV SCH (12:08)
--- NOTE | 2018-04-29 13:31 | GENERAL SURGERY PROGRESS NOTE ---
DATE: 04/29/2018 SUBJECTIVE: Remains on the ventilator. No ostomy output yet. Low-dose Levophed. He is arousable. He is a low dose Ativan drip as well 0.5 mg an hour. He had an echocardiogram that showed ejection fraction 40%. He is on FiO2 of 30, PEEP of 5. ABG is 7.47, 44, 123. ASSESSMENT AND PLAN: Mr. 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 From an abdominal standpoint, I think he is progressing as expected, but from a cardiovascular and pulmonary standpoint he remains critically ill. Continue support. I talked to his . We reviewed his medications. He is on Zosyn. He had minimal contamination. We will continue this for another day or so. He resuscitated with lactated Ringer's, fluid, I will decrease his rate some as I do think we have adequately resuscitated him. cc: MD Laura Easley MD
[2018-04-29] MEDS: NS 500 ML IV SCH (14:54)
--- NOTE | 2018-04-29 17:17 | PROGRESS NOTE ---
DATE: 04/29/2018 SUBJECTIVE DATA: The patient is intubated and sedated currently. Family was at bedside. Family again reports that he had a fall and hurt his shoulder. OBJECTIVE DATA: There is good radial pulse. There is good capillary refill. There is good range of motion to the right shoulder. There is still some mild to moderate bruising to the right upper extremity and the elbow. X-rays of the hip and elbow are normal. There is good range of motion to the elbow. Swelling has decreased since yesterday. ASSESSMENT: Fall with right proximal humerus fracture. PLAN: We plan on monitoring Mr. Page while he is in hospital. He will need a repeat x-ray on the right shoulder in about 1 week. If he still remains in the hospital in a week will order that here. Dictated by CHANA Ford for Natanael Stanford MD cc: CHANA Ford MD M. Neel Roberts, MD
[2018-04-30] MEDS: MORPHINE IV PRN ×4 (02:06→20:58)
[2018-04-30] MEDS: ZOSYN 2.25 GM in NS 50 ML IV SCH ×4 (03:30→20:58)
[2018-04-30] MEDS: LR 1,000 ML IV SCH ×2 (03:31→13:27)
[2018-04-30 04:39] LABS: ALLEN TEST YES; BE 4.7 mmoll (-3.0-3.0); BLOOD TYPE ARTERIAL; HCO3-(ACT) 28.6 mmoll (20.0-26.0); METHB 1.1 % (0.0-1.5); O2HB 96.1 % (95.0-99.0); PCO2(98.6) 35 mmHg (35-45); PO2(98.6) 115 mmHg (60-100); SAMPLE BLOOD; SRATE 14 BPM; THB 8.7 g/dL (11.5-17.4); TVOL 500 mL; pH(98.6) 7.51 (7.35-7.45)
[2018-04-30 04:41] LABS: MODALITY VENTILATOR
[2018-04-30 05:43] LABS: EOS# 0.06 X1000 (0.0-0.7); EOS% 0.7 % (0.0-10.0); HEMATOCRIT 29.5 % (42.0-52.0); HEMOGLOBIN 9.4 g/dL (14.0-18.0); IMM GRAN# 0.02 X1000 (0.0-0.04); IMM GRAN% 0.2 % (0.0-0.5); LYMPH# 0.96 X1000 (1.2-3.4); LYMPH% 11.5 % (20.5-51.1); MCHC 31.9 g/dL (33-37); MCV 94.2 FL (81-99); MONO# 0.57 X1000 (0.11-0.59); MONO% 6.8 % (1.7-9.3); MPV 11.6 FL (7.4-10.4); NEUT# 6.73 X1000 (1.4-6.5); NEUT% 80.8 % (42.2-75.2); PLT 191 X1000 (130-400); RBC 3.13 XMIL (4.7-6.1); WBC 8.34 X1000 (4.8-10.8)
[2018-04-30 06:18] LABS: AGAP 11; BUN 27 mg/dL (8-22); CALCIUM 8.3 mg/dL (8.8-10.2); CHLORIDE 104 mmol/L (98-107); COSMO 288; CREATININE 0.6 mg/dL (0.7-1.2); ESTIMATED GFR > 60; GLUCOSE 94 mg/dL (70-104); POTASSIUM 3.7 mmol/L (3.5-5.1); SODIUM 142 mmol/L (136-145); TCO2 27 mmol/L (25-35)
[2018-04-30] MEDS: LOVENOX SUBQ SCH (06:42)
[2018-04-30] MEDS: PROTONIX IV SCH (06:42)
--- NOTE | 2018-04-30 07:03 | PROGRESS NOTE ---
DATE: 04/30/2018 SUBJECTIVE: Mr. Page is resting comfortably this morning. He remains in normal sinus rhythm with frequent episodes of bradycardia. Blood pressures throughout the night have been in the range of 98 to 105, whereas his diastolic blood pressures have been in the 40s and 50s. They have fluctuated on the dosage of Levophed between 4 mcg and 6 mcg/m. He is currently on 4 mcg/m. Yesterday afternoon, he was only on 2 mcg/m. He has had minimal output via the colostomy. Urine output is improving. He has had urine output of 2615 meals over the past 2 days. He is maintaining good oxygen levels. Blood gases demonstrated a pH of 7.5, pCO2 of 35, pO2 of 115, and O2 saturation 99%. OBJECTIVE: General: He is on assist control with a rate of 14, FiO2 of 30%, tidal volume 500, and PEEP of 5. Vital signs: He is afebrile, pulse 80, respiratory rate 14, BP 105/54. Cardiovascular: Regular rate and rhythm. Lungs: Faint crackles in the bases bilaterally. Abdomen: Soft with hypoactive bowel sounds. No rebound or guarding. LABS: Various laboratory studies were obtained. A CBC demonstrated a white count of 8.3, hemoglobin 9.4, hematocrit 29.5, and a platelet count of 191,000. Electrolytes demonstrated the following: Sodium 142, potassium 3.7, chloride 104, BUN 27, creatinine 0.6. Glucose 94. ASSESSMENT AND PLAN: 1. 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 He is slowly progressing from the standpoint of his gastrointestinal surgery. He had minimal output via the ostomy this morning. 2. Acute respiratory failure secondary to aspiration pneumonia. He is maintaining good saturations with ventilatory support. He still requiring low-dose Ativan drip and p.r.n. morphine for agitation. He is still requiring low-dose Levophed. At baseline, his systolic blood pressures typically run from 95 to 105. We will continue ventilatory support, broad- spectrum antibiotics, and hope to titrate him off the Levophed. Given his improving urine output, I believe that he is well-hydrated and we want to be careful about giving him too much fluid in the setting of his underlying congestive heart failure. cc: Laura Jennings MD
--- NOTE | 2018-04-30 07:50 | Diag Imaging Result Doc PS360 ---
EXAM: CHEST-1 VIEW INDICATION: SOB TECHNIQUE: One view COMPARISON: 04/29/2018 FINDINGS: Support tubes and lines are in stable positions. Lung volumes are low similar to the previous study. Pulmonary venous congestion and bilateral infiltrates likely representing pulmonary edema is stable. No new consolidation is identified. There is stable cardiomegaly. IMPRESSION: Essentially stable chest. Electronically signed by Natanael Whitley 04/30/2018 7:48 AM
[2018-04-30] MEDS: LEVOPHED 8 MG in D5 1/2 NS 250 ML IV SCH ×2 (08:20→22:24)
[2018-04-30] MEDS: ATIVAN 20 MG in NS 190 ML IV SCH (08:21)
[2018-04-30] MEDS ORDERED: ASPIRIN PR SCH (09:00)
[2018-04-30] MEDS: ROMAZICON IV ONE ×2 (12:12→13:10)
[2018-04-30] MEDS ORDERED: LASIX IV ONE ×2 (12:17→14:11)
[2018-04-30] MEDS ORDERED: CARDIZEM IV SCH (13:15)
[2018-04-30] MEDS ORDERED: CARDIZEM ONE (13:22)
[2018-04-30 13:23] LABS: ALLEN TEST YES; BLOOD TYPE ARTERIAL; HCO3-(ACT) 24.9 mmoll (20.0-26.0); METHB 0.5 % (0.0-1.5); O2(CT) 13.6 mL/dL (15.0-23.0); PCO2(98.6) 40 mmHg (35-45); PO2(98.6) 64 mmHg (60-100); SAMPLE BLOOD; SAO2 95.1 % (95.0-100.0); THB 10.4 g/dL (11.5-17.4)
[2018-04-30] MEDS: HALDOL IV PRN (13:24)
[2018-04-30 13:27] LABS: MODALITY VENTILATOR
--- NOTE | 2018-04-30 14:02 | EKG Report ---
Test Performed on : 04/30/2018 12:13:46 PM Test Reason : AFIB Blood Pressure : / mmHG Vent. Rate : 163 BPM Atrial Rate : 141 BPM P-R Int : 000 ms QRS Dur : 142 ms QT Int : 320 ms P-R-T Axes : 000 267 052 degrees QTc Int : 526 ms Atrial fibrillation. with rapid ventricular response. with premature ventricular or aberrantly conduc hong complexes. Right bundle branch block Abnormal ECG When compared with ECG of 28-APR-2018 06:49, Atrial fibrillation. has replaced Sinus rhythm. ST now depressed in Anterior leads Unconfirmed Result
[2018-04-30] MEDS ORDERED: CORDARONE 360 MG/D5W 360 MG/200 ML IV.SOLN IV ONE ×2 (14:11→14:17)
[2018-04-30] MEDS ORDERED: CORDARONE 150 MG/D5W 150 MG/100 ML IV.SOLN IV ONE (14:17)
[2018-04-30] MEDS: NS 500 ML IV SCH (14:58)
[2018-04-30] MEDS ORDERED: CARDIZEM 125 MG in NS 100 ML IV SCH (17:45)
[2018-04-30] MEDS ORDERED: CORDARONE 540 MG in D5W 289.2 ML IV ONE ×2 (20:12→20:17)
--- NOTE | 2018-04-30 20:30 | GENERAL SURGERY PROGRESS NOTE ---
DATE: 04/30/2018 SUBJECTIVE: Ostomy has begun functioning. Abdomen is soft. He has a weaning dose of Levophed. He is arousable. The ventilator settings are minimal. Urine output has been okay. OBJECTIVE: Abdomen is soft. Incision is intact. Ostomy is pink, viable. I reviewed his labs and his chest x-ray. Gas exchange seems okay. His hematocrit is stable. White count is normalizing. Creatinine is 0.6. Chest x-ray does show changes concerning for aspiration pneumonia. 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 Respiratory and cardiac status have been an issue for him. He does have an aspiration pneumonia related to his initial event and apparently some degree of volume overload. His ventilator settings are improving. We are working on weaning trials. Cardiology is following. Surgically, his bowel function seems to be returning appropriately. I do not suspect ongoing issues intra-abdominally. cc: MD Laura Easley MD
[2018-05-01] MEDS: MORPHINE IV PRN ×4 (00:58→19:54)
[2018-05-01] MEDS: LR 1,000 ML IV SCH (02:07)
[2018-05-01] MEDS: ZOSYN 2.25 GM in NS 50 ML IV SCH ×6 (03:20→21:48)
[2018-05-01 05:09] LABS: BASO# 0.01 X1000 (0.0-0.2); BASO% 0.1 % (0.0-0.8); EOS# 0.05 X1000 (0.0-0.7); EOS% 0.7 % (0.0-10.0); HEMATOCRIT 29.3 % (42.0-52.0); HEMOGLOBIN 9.3 g/dL (14.0-18.0); IMM GRAN# 0.02 X1000 (0.0-0.04); IMM GRAN% 0.3 % (0.0-0.5); LYMPH# 0.78 X1000 (1.2-3.4); LYMPH% 10.3 % (20.5-51.1); MCH 29.6 PG (27-31); MCHC 31.7 g/dL (33-37); MCV 93.3 FL (81-99); MONO# 0.71 X1000 (0.11-0.59); MONO% 9.4 % (1.7-9.3); MPV 11.2 FL (7.4-10.4); NEUT# 6.02 X1000 (1.4-6.5); NEUT% 79.2 % (42.2-75.2); PLT 232 X1000 (130-400); RBC 3.14 XMIL (4.7-6.1); RDW 14.8 % (11.5-14.5); WBC 7.59 X1000 (4.8-10.8)
[2018-05-01 05:14] LABS: ALLEN TEST YES; BE 2.6 mmoll (-3.0-3.0); BLOOD TYPE ARTERIAL; HCO3-(ACT) 26.9 mmoll (20.0-26.0); METHB 1.2 % (0.0-1.5); O2(CT) 15.9 mL/dL (15.0-23.0); O2HB 96.4 % (95.0-99.0); PCO2(98.6) 45 mmHg (35-45); PO2(98.6) 110 mmHg (60-100); SAMPLE BLOOD; SAO2 98.6 % (95.0-100.0); SRATE 14 BPM; THB 11.6 g/dL (11.5-17.4); TVOL 500 mL
[2018-05-01 05:16] LABS: MODALITY VENTILATOR
[2018-05-01] MEDS: LOVENOX SUBQ SCH (06:32)
[2018-05-01] MEDS: PROTONIX IV SCH (06:32)
--- NOTE | 2018-05-01 07:34 | Diag Imaging Result Doc PS360 ---
EXAM: CHEST-1 VIEW INDICATION: SOB TECHNIQUE: One view COMPARISON: 04/30/2018 FINDINGS: Support tubes and lines are in stable positions. Low lung volumes, pulmonary venous congestion, and bilateral infiltrates likely representing edema are unchanged. There are probably bilateral pleural effusions that are stable. No new consolidation is identified. Cardiac silhouette is stable. IMPRESSION: Stable chest. Electronically signed by Natanael Whitley 05/01/2018 7:32 AM
[2018-05-01] MEDS: ASPIRIN NG SCH ×2 (07:57→09:46)
[2018-05-01] MEDS ORDERED: LR 1,000 ML IV SCH (08:32)
[2018-05-01] MEDS ORDERED: LASIX IV ONE (08:32)
--- NOTE | 2018-05-01 09:04 | PROGRESS NOTE ---
DATE: 05/01/2018 SUBJECTIVE: Mr. Page continues to go in and out of atrial fibrillation. Heart rate has been and in the range of 60 to 90. He has had several episodes of bradycardia with heart rate into the 40s. Chest x-rays show small bilateral pleural effusions. His IVP is 58. Blood gases demonstrated a pH of 7.4, pCO2 45. PO2 110 and an O2 saturation of 98.6. They did increase his FiO2 to 40%. Sputum cultures grew out Klebsiella pneumoniae sensitive to multiple drugs including. Zosyn. Blood pressures have been in the range of 100 to 125 whereas his diastolic blood pressures have been in the 40s to 60s. He is down to 3 mcg per minute of Levophed. OBJECTIVE: Vital signs: Temperature 98.2 degrees, pulse 85, respiratory rate 17. Blood pressure 100/42. Cardiovascular: Irregularly irregular. Lungs: Crackles in the bases bilaterally. Abdomen: Soft, nontender, with active bowel sounds. ASSESSMENT AND PLAN: 1. Acute respiratory failure with hypoxia secondary to gram negative pneumonia. Sputum cultures grew out Klebsiella pneumoniae. We will continue ventilatory support, IV Zosyn and DuoNeb nebulizer treatments. Hopefully, we will be able to proceed with weaning trials. 2. Acute on chronic congestive heart failure secondary to systolic dysfunction. His IVP is normal at 58. I am going to back down on his fluids. We will give him a one time dose of Lasix 20 mg IV x1 dose. cc: Laura Jennings MD
[2018-05-01] MEDS: ATIVAN 20 MG in NS 190 ML IV SCH (10:26)
[2018-05-01] MEDS: POTASSIUM CHLORIDE 20 MEQ/SWI 20 MEQ/100 ML IVPB IV SCH (13:35)
[2018-05-01] MEDS: NS 500 ML IV SCH (14:09)
[2018-05-01] MEDS: ROMAZICON IV ONE ×2 (15:06→15:07)
[2018-05-01] MEDS: LASIX IV SCH ×2 (15:06→21:48)
[2018-05-01] MEDS ORDERED: ROMAZICON ONE (15:09)
[2018-05-01 15:54] LABS: ALLEN TEST NO; BE 4.1 mmoll (-3.0-3.0); BLOOD TYPE ARTERIAL; HCO3-(ACT) 28.1 mmoll (20.0-26.0); METHB 1.2 % (0.0-1.5); O2(CT) 14.4 mL/dL (15.0-23.0); O2HB 96.2 % (95.0-99.0); PCO2(98.6) 45 mmHg (35-45); PO2(98.6) 105 mmHg (60-100); SAMPLE BLOOD; SAO2 98.4 % (95.0-100.0); THB 10.5 g/dL (11.5-17.4); pH(98.6) 7.42 (7.35-7.45)
[2018-05-01 15:55] LABS: MODALITY VENTILATOR
[2018-05-01] MEDS ORDERED: ROMAZICON IV ONE (16:23)
[2018-05-01] MEDS ORDERED: CORDARONE 360 MG/D5W 360 MG/200 ML IV.SOLN IV ONE (16:58)
[2018-05-01] MEDS ORDERED: CORDARONE 150 MG/D5W 150 MG/100 ML IV.SOLN IV ONE (17:13)
[2018-05-01] MEDS: HALDOL IV PRN (18:00)
--- NOTE | 2018-05-01 18:31 | GENERAL SURGERY PROGRESS NOTE ---
DATE: 05/01/2018 SUBJECTIVE: About the same from pulmonary standpoint. Did not tolerate weaning trials yesterday. OBJECTIVE: General: He is sedated. Abdomen: Abdomen is soft. Ostomy is functioning. Ostomy is pink with stool in the bag. NG tube output has been minimal. LABORATORY: White count 7, hematocrit 29. ABG was reviewed. Chest x-ray been reviewed. ASSESSMENT AND PLAN: This is a 78-year-old gentleman status post bowel resection for ileocecectomy for cecal volvulus. Remains critically ill on low-dose Levophed on the ventilator, not tolerating weans. He is being diuresed. From a surgical standpoint, we could start some enteral feeds. He is on antibiotics for aspiration pneumonia. We will continue to follow along. He remains critically ill. cc: MD Laura Easley MD
[2018-05-01 18:51] LABS: ALLEN TEST YES; BE 3.6 mmoll (-3.0-3.0); BLOOD TYPE ARTERIAL; HCO3-(ACT) 27.7 mmoll (20.0-26.0); METHB 1.3 % (0.0-1.5); O2(CT) 14.4 mL/dL (15.0-23.0); O2HB 96.5 % (95.0-99.0); PCO2(98.6) 39 mmHg (35-45); PO2(98.6) 104 mmHg (60-100); SAMPLE BLOOD; SAO2 98.5 % (95.0-100.0); THB 10.5 g/dL (11.5-17.4); pH(98.6) 7.46 (7.35-7.45)
[2018-05-01 18:52] LABS: MODALITY BI PAP
[2018-05-01] MEDS ORDERED: CORDARONE 540 MG in D5W 289.2 ML IV ONE (22:58)
[2018-05-01] MEDS: CORDARONE 360 MG/D5W 360 MG/200 ML IV.SOLN IV SCH (23:32)
[2018-05-02] MEDS: MORPHINE IV PRN ×3 (02:50→16:17)
[2018-05-02] MEDS: ZOSYN 2.25 GM in NS 50 ML IV SCH ×4 (02:51→20:53)
[2018-05-02 04:20] LABS: ALLEN TEST YES; BE 5.2 mmoll (-3.0-3.0); BLOOD TYPE ARTERIAL; HCO3-(ACT) 28.9 mmoll (20.0-26.0); METHB 0.9 % (0.0-1.5); O2(CT) 9.9 mL/dL (15.0-23.0); O2HB 91.3 % (95.0-99.0); PCO2(98.6) 44 mmHg (35-45); PO2(98.6) 56 mmHg (60-100); SAMPLE BLOOD; SAO2 92.8 % (95.0-100.0); THB 7.7 g/dL (11.5-17.4); pH(98.6) 7.44 (7.35-7.45)
[2018-05-02 04:23] LABS: MODALITY BI PAP
[2018-05-02 05:30] LABS: BASO# 0.01 X1000 (0.0-0.2); BASO% 0.1 % (0.0-0.8); EOS# 0.02 X1000 (0.0-0.7); EOS% 0.2 % (0.0-10.0); HEMATOCRIT 32.4 % (42.0-52.0); HEMOGLOBIN 10.4 g/dL (14.0-18.0); IMM GRAN# 0.05 X1000 (0.0-0.04); IMM GRAN% 0.5 % (0.0-0.5); LYMPH# 0.43 X1000 (1.2-3.4); LYMPH% 4.6 % (20.5-51.1); MCH 29.7 PG (27-31); MCHC 32.1 g/dL (33-37); MCV 92.6 FL (81-99); MONO# 0.87 X1000 (0.11-0.59); MONO% 9.3 % (1.7-9.3); MPV 11.3 FL (7.4-10.4); NEUT# 7.98 X1000 (1.4-6.5); NEUT% 85.3 % (42.2-75.2); PLT 273 X1000 (130-400); RDW 14.5 % (11.5-14.5); WBC 9.36 X1000 (4.8-10.8)
[2018-05-02 05:47] LABS: AGAP 12; BUN 18 mg/dL (8-22); CALCIUM 8.2 mg/dL (8.8-10.2); CHLORIDE 101 mmol/L (98-107); COSMO 287; CREATININE 0.6 mg/dL (0.7-1.2); ESTIMATED GFR > 60; GLUCOSE 135 mg/dL (70-104); MAGNESIUM 1.5 mg/dL (1.5-2.7); POTASSIUM 3.5 mmol/L (3.5-5.1); SODIUM 142 mmol/L (136-145); TCO2 29 mmol/L (25-35)
[2018-05-02] MEDS: PROTONIX IV SCH (05:56)
[2018-05-02] MEDS: LOVENOX SUBQ SCH (05:56)
--- NOTE | 2018-05-02 06:52 | EKG Report ---
Test Performed on : 05/01/2018 4:22:35 PM Test Reason : elevated HR Blood Pressure : / mmHG Vent. Rate : 130 BPM Atrial Rate : 133 BPM P-R Int : 000 ms QRS Dur : 146 ms QT Int : 346 ms P-R-T Axes : 000 -80 054 degrees QTc Int : 509 ms Atrial fibrillation. with rapid ventricular response. with premature ventricular or aberrantly conduc hong complexes. Right bundle branch block Left anterior fascicular block Bifascicular block Abnormal ECG When compared with ECG of 30-APR-2018 12:13, No significant change was found Unconfirmed Result
[2018-05-02] MEDS ORDERED: LANOXIN IV ONE (07:32)
--- NOTE | 2018-05-02 07:33 | Diag Imaging Result Doc PS360 ---
CHEST-1 VIEW - 05/02/2018 INDICATION: SOB COMPARISON: 05/01/2018 FINDINGS: The patient has been extubated. Lung volumes remain severely low. There is improvement in the right basilar infiltrate/atelectasis. The left base appears stable. Stable chronic pneumoperitoneum. Heart size remains normal. IMPRESSION: Patient has been excluded. Significant improvement especially in the right lung base. Electronically signed by Armin Harrison 05/02/2018 7:31 AM
[2018-05-02] MEDS ORDERED: ATIVAN IV PRN (07:34)
[2018-05-02] MEDS ORDERED: CORDARONE IV ONE (07:43)
--- NOTE | 2018-05-02 08:21 | PROGRESS NOTE ---
DATE: 05/02/2018 SUBJECTIVE: Mr. Page remains in and persistent atrial fibrillation. He has been on an amiodarone drip. His heart rate has been in the 120s and 130s for most of the evening. He was extubated yesterday. Chest x-ray showed significant improvement in the pulmonary edema. He has had urine output of nearly 2800 mL over the past 24 hours. His oxygen levels have been fluctuating from 88% to 100% on BiPAP. They were able to wean him down to 60% oxygen on the BiPAP. O2 saturations are running 89 to 92 percent. He continues to have some output via the colostomy. OBJECTIVE: Vital Signs: Temperature 97.9, pulse 115 and irregular, respiratory rate 30, BP 130/67. CV: Irregularly irregular. Lungs: Crackles in the bases bilaterally. Abdomen: Soft, nontender, with active bowel sounds. No hepatosplenomegaly. No abdominal bruits. LABS: A CBC demonstrated a white count of 9.3 hemoglobin 10.4, hematocrit 32.4, and a platelet count of 273,000. Electrolytes demonstrate the following: Sodium 142, potassium 3.5, chloride 101. BUN 18, creatinine 0.6. Arterial blood gases demonstrated a pH of 7.4, pCO2 44, PO2 56 and O2 saturation 92.8%. ASSESSMENT AND PLAN: 1. Acute on chronic congestive heart failure secondary to systolic dysfunction. His most recent echocardiogram demonstrated an ejection fraction of 35 to 40 percent. We have heparin locked his fluids. We will continue Lasix 40 mg intravenous every 12 hours. His chest x-ray looks much improved. Unfortunately, his saturations are still marginal in the range of 89 to 92 percent on 60% oxygen and BiPAP. 2. Atrial fibrillation with rapid ventricular response. He does not seem to be tolerating the fast heart rate in the setting of his underlying heart failure. I am going to increase the amiodarone drip to a milligram per hour, and give him an additional bolus of 150 mg intravenous. We will also begin low-dose intravenous Lopressor as long as his blood pressure tolerates it. I am hoping that by achieving better rate control that it will take stress off the heart, and his oxygenation will improve. I do not believe that he would be a candidate for cardioversion at this point in time. cc: Laura Jennings MD
[2018-05-02] MEDS ORDERED: DIPRIVAN 1% ONE (08:26)
[2018-05-02] MEDS ORDERED: QUELICIN ONE (08:26)
[2018-05-02] MEDS: ATIVAN 20 MG in NS 190 ML IV SCH (09:01)
--- NOTE | 2018-05-02 09:03 | Diag Imaging Result Doc PS360 ---
CHEST-PORTABLE - 05/02/2018 8:47 AM INDICATION: intubation/OG placement COMPARISON: 5:26 AM FINDINGS: There is a new endotracheal tube and nasogastric tube in good position. The other findings are stable. IMPRESSION: Good endotracheal and nasogastric tube placement. Electronically signed by Armin Harrison 05/02/2018 9:01 AM
[2018-05-02] MEDS: LOPRESSOR IV SCH ×3 (09:20→20:53)
[2018-05-02] MEDS: LASIX IV SCH ×2 (09:20→20:53)
[2018-05-02] MEDS: ASPIRIN NG SCH (09:21)
[2018-05-02] MEDS: CORDARONE 360 MG/D5W 360 MG/200 ML IV.SOLN IV SCH ×2 (09:28→17:42)
[2018-05-02 10:20] LABS: ALLEN TEST YES; BE 4.9 mmoll (-3.0-3.0); BLOOD TYPE ARTERIAL; HCO3-(ACT) 28.8 mmoll (20.0-26.0); METHB 1.1 % (0.0-1.5); O2(CT) 7.9 mL/dL (15.0-23.0); O2HB 97.6 % (95.0-99.0); PCO2(98.6) 46 mmHg (35-45); PO2(98.6) 225 mmHg (60-100); SAMPLE BLOOD; SAO2 99.6 % (95.0-100.0); SRATE 14 BPM; THB 5.3 g/dL (11.5-17.4); TVOL 500 mL; pH(98.6) 7.42 (7.35-7.45)
[2018-05-02 10:22] LABS: MODALITY VENTILATOR
--- NOTE | 2018-05-02 14:01 | PROGRESS NOTE ---
DATE: 05/02/2018 SUBJECTIVE: Mr. Page remains in atrial fibrillation. However, his heart rate has improved dramatically. His heart rate is in the 60s and 70s after bolusing with additional amiodarone and starting low-dose Lopressor. His blood pressures are in the range of 98 to 105 whereas his diastolic blood pressures were in the 50s. He is resting comfortably and maintaining good O2 saturations on the ventilator. Because of marginal oxygen levels on BiPAP in combination with the atrial fibrillation with RVR, we felt that he was tiring out and would need intervention by re- intubating him. He is having small amounts of output via his colostomy. Chest x-ray showed improved edema bilaterally. We will continue low-dose Lasix as long as his blood pressure tolerates it. cc: Laura Jennings MD
--- NOTE | 2018-05-02 14:38 | GENERAL SURGERY PROGRESS NOTE ---
DATE: 05/02/2018 SUBJECTIVE: He is extubated but remains on BiPAP with poor pulmonary status this morning. OBJECTIVE: His abdomen is soft. His ostomy is functional. He is not really alert and is very tachypneic. I think the plans are for re-intubation soon. LABORATORY DATA: I have reviewed his ABGs. He is hyperventilating. Creatinine 0.6. White count remains normal. Hematocrit 32. ASSESSMENT/PLAN: A 78-year-old gentleman status post exploratory laparotomy, bowel resection, right colectomy. Ostomy is functioning. From a GI standpoint, I think we are making strides, however, cardiopulmonary arzola, he remains very ill. I suspect he will need re-intubation. I do worry about positive pressure mask ventilation in the setting of his recent bowel resection and bowel perforation. He will need some form of gastric decompression if he remains on this via orogastric tube, doubtful that a nasogastric will be able to be placed. I have discussed with Dr. Jennings. I think the plan is for re-intubation. Will continue to follow along. Dr. Michel is qa automation architect this weekend. cc: MD Laura Easley MD
[2018-05-02] MEDS: NS 500 ML IV SCH (14:47)
[2018-05-02] MEDS ORDERED: MAGNESIUM SULFATE 2 GM/S.W.I. 2 GM/50 ML IVPB IV ONE (15:02)
[2018-05-03] MEDS: ZOSYN 2.25 GM in NS 50 ML IV SCH ×6 (02:12→20:36)
[2018-05-03] MEDS: LOPRESSOR IV SCH ×2 (02:22→07:38)
[2018-05-03 04:45] LABS: ALLEN TEST YES; BE 7.9 mmoll (-3.0-3.0); BLOOD TYPE ARTERIAL; HCO3-(ACT) 31.1 mmoll (20.0-26.0); O2HB 95.9 % (95.0-99.0); PCO2(98.6) 46 mmHg (35-45); PO2(98.6) 179 mmHg (60-100); SAMPLE BLOOD; SAO2 100.7 % (95.0-100.0); SRATE 14 BPM; THB 10.1 g/dL (11.5-17.4); TVOL 500 mL; pH(98.6) 7.46 (7.35-7.45)
[2018-05-03 04:46] LABS: MODALITY VENTILATOR
[2018-05-03 04:47] LABS: BASO# 0.01 X1000 (0.0-0.2); BASO% 0.1 % (0.0-0.8); EOS# 0.01 X1000 (0.0-0.7); EOS% 0.1 % (0.0-10.0); HEMATOCRIT 31.2 % (42.0-52.0); HEMOGLOBIN 10.2 g/dL (14.0-18.0); IMM GRAN# 0.04 X1000 (0.0-0.04); IMM GRAN% 0.4 % (0.0-0.5); LYMPH# 0.57 X1000 (1.2-3.4); LYMPH% 5.6 % (20.5-51.1); MCHC 32.7 g/dL (33-37); MCV 91.8 FL (81-99); MONO# 0.76 X1000 (0.11-0.59); MONO% 7.5 % (1.7-9.3); MPV 10.9 FL (7.4-10.4); NEUT# 8.71 X1000 (1.4-6.5); NEUT% 86.3 % (42.2-75.2); PLT 288 X1000 (130-400); RDW 14.2 % (11.5-14.5)
[2018-05-03 05:02] LABS: AGAP 12; ALB/GLOB RATIO 0.8; ALBUMIN 2.2 g/dL (3.5-5.0); ALKALINE PHOSPHATASE 75 U/L (32-122); BUN 19 mg/dL (8-22); CALCIUM 8.1 mg/dL (8.8-10.2); CHLORIDE 101 mmol/L (98-107); COSMO 289; CREATININE 0.5 mg/dL (0.7-1.2); ESTIMATED GFR > 60; GLUCOSE 134 mg/dL (70-104); GOT 29 U/L (10-34); GPT 34 U/L (10-44); SODIUM 143 mmol/L (136-145); TCO2 30 mmol/L (25-35); TOTAL BILIRUBIN 0.38 mg/dL (0.20-1.00)
[2018-05-03] MEDS: PROTONIX IV SCH (05:53)
[2018-05-03] MEDS: LOVENOX SUBQ SCH (05:54)
[2018-05-03] MEDS: ATIVAN 20 MG in NS 190 ML IV SCH (06:00)
[2018-05-03] MEDS ORDERED: CORDARONE 540 MG in D5W 289.2 ML IV ONE ×2 (06:00→11:31)
[2018-05-03] MEDS: MORPHINE IV PRN ×3 (07:38→18:09)
[2018-05-03] MEDS: LASIX IV SCH ×2 (07:38→09:12)
[2018-05-03] MEDS: ASPIRIN NG SCH ×2 (07:39→10:07)
--- NOTE | 2018-05-03 07:45 | Diag Imaging Result Doc PS360 ---
CHEST-1 VIEW - 05/03/2018 INDICATION: SOB COMPARISON: 05/02/2018 FINDINGS: Support tubes are stable. Stable low lung volumes. Stable patchy bibasilar airspace opacifications consistent with infiltrates or atelectasis. No new infiltrates or abnormalities. Heart size remains normal. IMPRESSION: No change from prior. Electronically signed by Armin Harrison 05/03/2018 7:43 AM
[2018-05-03] MEDS ORDERED: POTASSIUM CHLORIDE 40 MEQ/SWI 40 MEQ/100 ML IVPB IV ONE (08:20)
--- NOTE | 2018-05-03 09:03 | PROGRESS NOTE ---
DATE: 05/03/2018 SUBJECTIVE: Mr. Page remains in atrial fibrillation. His heart rate has generally been in the range of 67 to 84. He has had occasional episodes of heart rate as high as 115. When he was given Lopressor, his blood pressure dropped significantly and he had periods of bradycardia. He is currently on an IV amiodarone drip. He appears to be resting comfortably. He is maintaining O2 saturations of 98 to 100 percent. Arterial blood gases this morning demonstrated a pH of 7.46, pCO2 46, PO2 179, O2 saturation 100% on assist control, rate of 14, FiO2 80%, tidal volume 500, and PEEP of 8. Chest x-ray still shows small amounts of fluid, but improved as compared to the previous chest x-ray. He continues to have output via the colostomy. OBJECTIVE: Vital Signs: BP 90/44, respiratory rate 14, pulse 74. Urine output 1305 mL. CV: Irregularly irregular. Lungs: Faint crackles in the bases bilaterally. Abdomen: Soft, nontender, with active bowel sounds. Extremities: Without edema. LABS: Various laboratory studies were obtained. An ABG demonstrated pH of 7.46, pCO2 46, PO2 179 and O2 saturation of 100%. A CBC demonstrated white count of 10.1, hemoglobin 10.2, hematocrit 31.2 and a platelet count of 288,000. Electrolytes demonstrated the following: Sodium 143, potassium 3.0, BUN 12, creatinine 0.5 and glucose 134. His albumin was 2.2. ASSESSMENT AND PLAN: 1. Persistent atrial fibrillation. The patient does remain in atrial fibrillation. His heart rate is generally well controlled. He has not been able to tolerate the Lopressor because of episodes of bradycardia and hypotension. I will discontinue the Lopressor. We will stop the amiodarone drip and change him to amiodarone 400 mg twice daily. 2. Acute respiratory failure with hypoxia requiring mechanical ventilation secondary to aspiration pneumonia, as well as acute on chronic congestive heart failure secondary to systolic dysfunction. We will continue ventilatory support, DuoNeb nebulizer treatments and intravenous Zosyn. Given his hypotension, I will back down on the Lasix to 40 mg intravenous daily. 3. Hypokalemia. I will give him KCl 40 mEq intravenous over 4 hours and recheck a basic metabolic panel. 4. Protein calorie malnutrition. His albumin is 2.2. He has not eaten in several days. I am going to check a pre-albumin level. I am going to talk to his surgeon to see if it would be alright for us to initiate tube feedings to provide nutritional support for the patient. cc: Laura Jennings MD
[2018-05-03] MEDS: CORDARONE FT SCH ×2 (10:31→20:36)
--- NOTE | 2018-05-03 12:20 | PROGRESS NOTE ---
DATE: 05/03/2018 SUBJECTIVE: Mr. Otis Page is a 78-year-old male patient of Dr. Aditya Jennings who underwent an exploratory laparotomy with small-bowel resection and right colon resection by Dr. Winston 04/27/2018. He is now postop day 6. He remains in the ICU on the ventilator in atrial fibrillation. OBJECTIVE: Heart rate 71, blood pressure 94/50, O2 saturation 96%. He has bibasilar atelectasis by chest x-ray. He is on assist-control 14, 80% FiO2, 500 tidal volume, and a PEEP of 8. His blood gas is pH 7.46, PCO2 46, PaO2 179. His lactate was 1, base excess 7.9. Electrolytes with BUN of 19, creatinine 0.5. White blood cell count of 10, hematocrit 31%. PLAN: He is on IV Zosyn. We will continue supportive care per Dr. Jennings. cc: MD Laura Nuñez MD
--- NOTE | 2018-05-03 13:33 | PULMONOLOGY PROGRESS NOTE ---
DATE: 05/03/2018 SUBJECTIVE: The patient is sedated on mechanical ventilation. He remains on high FiO2 and an Ativan drip. OBJECTIVE: Vital Signs: Blood pressure 103/54, heart rate 68 respiratory rate 21, oxygen saturation 96%. Intake 720, output 5. He has been afebrile for the last 24 hours. HEENT: Pupils are equal. Oropharynx appears dry. Neck: Supple. Chest: Reveals scattered rhonchi bilaterally. Cardiac: S1, S2. Abdomen: Soft with positive bowel sounds. Extremities: Reveals sling on the right arm with peripheral edema. LABORATORIES: Chest x-ray reveals bibasilar infiltrates. White blood count 10.10, hemoglobin 10.4, platelet count 288,000. Sodium 143, potassium 3.0, chloride 101 bicarbonate 30, BUN 19, creatinine 0.5, albumin 2.2. Pre-albumin 6.3. Arterial blood gas: PH 7.46, pCO2 of 46, PO2 of 179. IMPRESSION: A 78-year-old with: 1. Ileocecal resection for bowel obstruction. 2. Klebsiella pneumonia. 3. Acute hypoxemic respiratory failure status post failed extubation. 4. Protein calorie malnutrition. 5. Recent fall with fracture of the proximal humerus. 6. Atrial fibrillation with rapid ventricular response. RECOMMENDATION: 1. Minor ventilatory adjustments. See new ventilator order. 2. Continue current antibiotic regimen. 3. I agree with initiation of tube feeds. We will check magnesium and phosphorus tomorrow morning to evaluate for possible refeeding syndrome. 4. We will discontinue Ativan drip given potential for metabolite buildup and his age. 5. Continue rate control of his atrial fibrillation. 6. Prognosis is guarded. Time spent in critical care management 30+ minutes. cc: MD Laura Alvarez MD
--- NOTE | 2018-05-03 14:12 | CARDIOLOGY PROGRESS NOTE ---
DATE: 05/03/2018 SUBJECTIVE: Mr. Page is currently on the ventilator and sedated with Ativan. PHYSICAL EXAM: He is afebrile. Heart rate is 71, blood pressure 94/50. He appears to be in rate controlled atrial fibrillation.Cardiovascular: She is in a irregularly irregular rate controlled rhythm. He has no murmurs, no S3. No lower extremity edema. Chest: Has coarse bilateral mechanical breath sounds heard throughout all lung conroy. No increased work of breathing. Abdomen: Soft, nontender. PERTINENT DATA: His white count is 10.1, hematocrit is 31, platelet count is 288,000. His sodium is 143, potassium is 3, BUN 19, creatinine 0.5. ASSESSMENT: Mr. Page is a 78-year-old gentleman with atrial fibrillation as well as acute respiratory failure. PLAN: His potassium has been repleted by the primary team. In addition, he has been switched off IV amiodarone to oral amiodarone. This seems reasonable. We may consider a rate control approach as opposed to rhythm control approach in the future and may opt for AV henry blocking agents alone as opposed to amiodarone. We will continue with current course for the time being. cc: MD Laura Dill MD
[2018-05-03] MEDS: NS 500 ML IV SCH (14:19)
[2018-05-03] MEDS: ATIVAN IV PRN ×2 (15:43→18:09)
[2018-05-04] MEDS: MORPHINE IV PRN ×5 (01:59→22:02)
[2018-05-04] MEDS: ATIVAN IV PRN ×5 (02:37→22:01)
[2018-05-04] MEDS: ZOSYN 2.25 GM in NS 50 ML IV SCH ×4 (04:35→20:48)
[2018-05-04 04:57] LABS: BASO# 0.01 X1000 (0.0-0.2); BASO% 0.1 % (0.0-0.8); EOS# 0.02 X1000 (0.0-0.7); EOS% 0.2 % (0.0-10.0); HEMATOCRIT 32.4 % (42.0-52.0); HEMOGLOBIN 10.5 g/dL (14.0-18.0); IMM GRAN# 0.09 X1000 (0.0-0.04); IMM GRAN% 0.9 % (0.0-0.5); LYMPH# 0.95 X1000 (1.2-3.4); LYMPH% 9.5 % (20.5-51.1); MCH 29.6 PG (27-31); MCHC 32.4 g/dL (33-37); MCV 91.3 FL (81-99); MONO# 0.96 X1000 (0.11-0.59); MONO% 9.6 % (1.7-9.3); MPV 10.8 FL (7.4-10.4); NEUT# 7.92 X1000 (1.4-6.5); NEUT% 79.7 % (42.2-75.2); PLT 347 X1000 (130-400); RBC 3.55 XMIL (4.7-6.1); RDW 14.3 % (11.5-14.5); WBC 9.95 X1000 (4.8-10.8)
[2018-05-04 05:08] LABS: BLOOD TYPE ARTERIAL; SAMPLE BLOOD; pH(98.6) 7.44 (7.35-7.45)
[2018-05-04 05:09] LABS: HCO3-(ACT) 34.5 mmoll (20.0-26.0); PCO2(98.6) 51 mmHg (35-45); PO2(98.6) 123 mmHg (60-100)
[2018-05-04 05:10] LABS: MODALITY VENTILATOR
[2018-05-04 05:11] LABS: ALLEN TEST YES; SRATE 10 BPM; TVOL 650 mL
[2018-05-04 05:16] LABS: MAGNESIUM 1.6 mg/dL (1.5-2.7)
[2018-05-04 05:20] LABS: AGAP 10; ALBUMIN 2.6 g/dL (3.5-5.0); ALKALINE PHOSPHATASE 116 U/L (32-122); BUN 24 mg/dL (8-22); CALCIUM 8.6 mg/dL (8.8-10.2); CHLORIDE 100 mmol/L (98-107); COSMO 289; CREATININE 0.5 mg/dL (0.7-1.2); ESTIMATED GFR > 60; GLUCOSE 135 mg/dL (70-104); GOT 39 U/L (10-34); GPT 59 U/L (10-44); POTASSIUM 3.1 mmol/L (3.5-5.1); SODIUM 142 mmol/L (136-145); TCO2 32 mmol/L (25-35); TOTAL BILIRUBIN 0.54 mg/dL (0.20-1.00); TOTAL PROTEIN 5.3 g/dL (6.3-8.3)
[2018-05-04] MEDS: LOVENOX SUBQ SCH (05:55)
[2018-05-04] MEDS: PROTONIX IV SCH (05:55)
--- NOTE | 2018-05-04 07:37 | Diag Imaging Result Doc PS360 ---
CHEST-1 VIEW - 05/04/2018 INDICATION: SOB COMPARISON: 05/03/2018 FINDINGS: Support tubes are stable. There is improvement in the right basilar infiltrate. Stable persistent retrocardiac infiltrate or atelectasis. Heart size remains normal. IMPRESSION: Improved aeration of the right lung base. Electronically signed by Armin Harrison 05/04/2018 7:34 AM
[2018-05-04] MEDS: CORDARONE FT SCH ×2 (08:05→20:48)
[2018-05-04] MEDS: ASPIRIN NG SCH (08:05)
[2018-05-04] MEDS: LASIX IV SCH (08:05)
--- NOTE | 2018-05-04 09:05 | PROGRESS NOTE ---
DATE: 05/04/2018 SUBJECTIVE: Mr. Page appears to be resting comfortably. He is maintaining good oxygenation with O2 saturations of 98 to 100 percent. Arterial blood gases this morning demonstrated a pH of 7.44, pCO2 51, PO2 123, and an O2 saturation of 99. He is on assist control with a rate of 10, FiO2 60%, and a tidal volume of 650. He remains and atrial fibrillation. His heart rate has been trending up during the night. Heart rate has ranged from 99 to 121. Chest x-ray showed improvement in the right lower infiltrate. He has improved aeration in the lung conroy. He is tolerating tube feedings. PHYSICAL EXAMINATION: He is afebrile. Pulse 90, respirations 20, BP 108/53. CV: Irregularly irregular. Lungs: Crackles in the right base. Abdomen: Soft, nontender, with active bowel sounds. No hepatosplenomegaly. No abdominal bruits. LABORATORY DATA: Various laboratory studies were obtained. A BMP demonstrated the following: Sodium 142, potassium 3.1, BUN 24, creatinine 0.5, and glucose 135. Liver function tests demonstrated an AST of 39 and ALT of 59. His albumin was 2.6, prealbumin was 6.3. A CBC demonstrated a white count of 9.9, hemoglobin 10.5, hematocrit 32.4, and a platelet count of 347,000. ASSESSMENT AND PLAN: 1. Acute respiratory failure with hypoxia secondary to aspiration pneumonia. Clinically, he continues to make slow progress. He is requiring less ventilatory support. Chest x-rays are improved. We will continue DuoNeb nebulizer treatments and intravenous Zosyn. 2. Severe protein calorie malnutrition. We will continue Nepro at 20 mL per hour. I suspect that we will continue the Nepro at this rate for at least the next 24 hours. Then we will slowly increase the tube feedings, given his recent abdominal surgery. 3. Chronic atrial fibrillation. We switched him over to amiodarone 400 mg twice a day. His heart rate is trending upward at times. He has not tolerated Lopressor very well as it bottomed out his blood pressure. We will continue to monitor his heart rate and may have to load him with digoxin. cc: Lauar Jennings MD
[2018-05-04] MEDS ORDERED: LR 1,000 ML IV ONE (10:36)
--- NOTE | 2018-05-04 11:05 | Diag Imaging Result Doc PS360 ---
CHEST-PORTABLE - 05/04/2018 INDICATION: ? pneumothorax f/u COMPARISON: 05/04/2018 FINDINGS: Support tubes are stable. There are some skin folds in the right lung field similar to prior exams. No pneumothorax. Stable consolidation or atelectasis in the left lower lobe. IMPRESSION: No pneumothorax. Electronically signed by Armin Harrison 05/04/2018 11:02 AM
[2018-05-04] MEDS: LEVOPHED 8 MG in D5 1/2 NS 250 ML IV SCH ×2 (11:10→19:52)
[2018-05-04] MEDS ORDERED: MAGNESIUM SULFATE 2 GM/S.W.I. 2 GM/50 ML IVPB IV ONE (12:37)
--- NOTE | 2018-05-04 12:50 | PULMONOLOGY PROGRESS NOTE ---
DATE: 05/04/2018 SUBJECTIVE: The patient's oxygen saturation was dropping upon arrival into the room. FiO2 was increased to 100% with minor ventilatory adjustments. He remains hypoxemic. OBJECTIVE: HEENT: Pupils are equal. Oropharynx appears clear. Neck: Supple. Chest: Good air entry bilaterally without wheezing or rhonchi. Cardiac: Increased rate. Irregular rhythm. Abdomen: Soft. Bowel sounds are diminished. Extremities: Without edema. IMAGING AND LABORATORY DATA: Arterial blood gas at 4:58 this morning shows pH 7.44, pCO2 of 51, PO2 of 123 on 60% FiO2. Chest x-ray by radiologist report reveals retrocardiac infiltrate on the left with possible improvement at the right base. By my review, I cannot completely rule out a pneumothorax at the right base. White blood count 9.95, hemoglobin 10.5, platelet count 347,000. Sodium 142, potassium 3.1, chloride 100, bicarbonate 32, BUN 24, creatinine 0.5. Prealbumin 6.3. Phosphorus 3.0, magnesium 1.6. IMPRESSION: A 78-year-old with: 1. Klebsiella pneumonia. 2. Acute hypoxemic respiratory failure, status post failed extubation. 3. Protein calorie malnutrition. 4. Recent fall with fracture of the proximal humerus. 5. Atrial fibrillation with rapid ventricular response. 6. Ileocecal resection for bowel obstruction. 7. Abnormal chest x-ray with possible pneumothorax and recent oxygen desaturation. RECOMMENDATIONS: 1. Repeat chest x-ray now to ensure he does not have an expanding pneumothorax to explain his hypoxemia. 2. Cardiac rate control with atrial fibrillation. Will give additional sedation, and continue Cordarone. 3. Continue tube feeds as tolerated. 4. Overall prognosis is guarded. TIME SPENT: Critical care, 45 minutes. cc: MD Laura Alvarez MD
--- NOTE | 2018-05-04 13:09 | CARDIOLOGY PROGRESS NOTE ---
DATE: 05/04/2018 SUBJECTIVE: Mr. Page continues on the ventilator. He is not responsive. He is on a pressor right now. PHYSICAL EXAMINATION: Vital Signs: The patient is afebrile. His heart rates are in the 90s to low 100s. His blood pressure is 108/53. General: He is in no acute distress. Cardiovascular: He sounds to be in an irregularly irregular, relatively rate controlled rhythm. He has no murmurs. He has no lower extremity edema. Chest Examination: Mechanical breath sounds heard throughout the bilateral lung conroy. Abdomen: Soft, nontender. PERTINENT DATA: White count 9.9, his hematocrit is 32, platelet count 347,000. His sodium is 142, potassium is 3.1, his BUN is 24, creatinine 0.5, his magnesium is 1.6. ASSESSMENT AND PLAN: Mr. Page is a 78-year-old gentleman with atrial fibrillation as well as acute respiratory failure. His potassium continues to be low today. I will replete that with intravenous potassium as well as some magnesium supplementation. His atrial fibrillation seems reasonably rate controlled at the current time. cc: MD Laura Dill MD
[2018-05-04] MEDS: NS 500 ML IV SCH (15:30)
[2018-05-04] MEDS: POTASSIUM CHLORIDE 20 MEQ/SWI 20 MEQ/100 ML IVPB IV SCH (16:17)
--- NOTE | 2018-05-04 18:40 | PROGRESS NOTE ---
DATE: 05/04/2018 Mr. Otis Page is a 78-year-old white male who underwent small bowel and right colon resection per Dr. Winston. He has had an end ileostomy. He is back on the ventilator at 60% FiO2 + 7 of PEEP. On exam of his abdomen his end ileostomy is viable. His abdomen is mostly flat. There has been no significant output from his ileostomy. His midline incision seems to be intact and healing. Tube feeding has been started per Dr. Jennings through his NG tube. He has a Frances catheter tube in place. His heart rate is 82, blood pressure 104/50, O2 saturation is 95% on the ventilator. Urine output is satisfactory. His white blood cell count is normal. Hematocrit is 32%. Electrolytes are within normal limits. BUN is 24, creatinine 0.5. His liver function tests are essentially normal. PLAN: Dr. Jennings has been able to decrease his FiO2 from 100% down to 60 over the last 2 days. He has begun tube feeding for nutrition. We will continue supportive care. cc: MD Laura Nuñez MD
[2018-05-05] MEDS: MORPHINE IV PRN ×6 (01:46→20:25)
[2018-05-05] MEDS: ATIVAN IV PRN ×4 (01:46→22:03)
[2018-05-05] MEDS: ZOSYN 2.25 GM in NS 50 ML IV SCH ×2 (03:36→08:48)
[2018-05-05 04:33] LABS: ALLEN TEST YES; BE 11.1 mmoll (-3.0-3.0); BLOOD TYPE ARTERIAL; HCO3-(ACT) 33.6 mmoll (20.0-26.0); METHB 1.1 % (0.0-1.5); O2(CT) 14.8 mL/dL (15.0-23.0); O2HB 96.5 % (95.0-99.0); PCO2(98.6) 37 mmHg (35-45); PO2(98.6) 112 mmHg (60-100); SAMPLE BLOOD; SAO2 98.8 % (95.0-100.0); SRATE 10 BPM; THB 10.8 g/dL (11.5-17.4); TVOL 700 mL
[2018-05-05 04:36] LABS: MODALITY VENTILATOR; pH(98.6) 7.57 (7.35-7.45)
[2018-05-05 04:41] LABS: BASO# 0.01 X1000 (0.0-0.2); BASO% 0.1 % (0.0-0.8); EOS# 0.03 X1000 (0.0-0.7); EOS% 0.3 % (0.0-10.0); HEMATOCRIT 31.1 % (42.0-52.0); HEMOGLOBIN 10.1 g/dL (14.0-18.0); IMM GRAN# 0.04 X1000 (0.0-0.04); IMM GRAN% 0.4 % (0.0-0.5); LYMPH# 1.02 X1000 (1.2-3.4); LYMPH% 9.2 % (20.5-51.1); MCH 29.8 PG (27-31); MCHC 32.5 g/dL (33-37); MCV 91.7 FL (81-99); MONO# 1.07 X1000 (0.11-0.59); MONO% 9.7 % (1.7-9.3); MPV 10.9 FL (7.4-10.4); NEUT# 8.91 X1000 (1.4-6.5); NEUT% 80.3 % (42.2-75.2); PLT 391 X1000 (130-400); RBC 3.39 XMIL (4.7-6.1); RDW 14.3 % (11.5-14.5); WBC 11.08 X1000 (4.8-10.8)
[2018-05-05 05:07] LABS: AGAP 12; ALB/GLOB RATIO 0.9; ALBUMIN 2.3 g/dL (3.5-5.0); ALKALINE PHOSPHATASE 108 U/L (32-122); BUN 26 mg/dL (8-22); CALCIUM 8.3 mg/dL (8.8-10.2); CHLORIDE 103 mmol/L (98-107); COSMO 297; CREATININE 0.5 mg/dL (0.7-1.2); ESTIMATED GFR > 60; GLUCOSE 158 mg/dL (70-104); GOT 30 U/L (10-34); GPT 66 U/L (10-44); POTASSIUM 3.4 mmol/L (3.5-5.1); SODIUM 145 mmol/L (136-145); TCO2 30 mmol/L (25-35); TOTAL BILIRUBIN 0.77 mg/dL (0.20-1.00); TOTAL PROTEIN 4.8 g/dL (6.3-8.3)
[2018-05-05] MEDS: PROTONIX IV SCH (05:17)
[2018-05-05] MEDS: LOVENOX SUBQ SCH (05:17)
[2018-05-05] MEDS: LEVOPHED 8 MG in D5 1/2 NS 250 ML IV SCH ×2 (05:18→16:04)
[2018-05-05] MEDS ORDERED: POTASSIUM CHLORIDE 40 MEQ/SWI 40 MEQ/100 ML IVPB IV ONE (07:25)
--- NOTE | 2018-05-05 07:40 | Diag Imaging Result Doc PS360 ---
CHEST-1 VIEW - 05/05/2018 INDICATION: SOB COMPARISON: 05/04/2018 FINDINGS: Support tubes are stable. Lung volumes are slightly lower. Accounting for this, there is no change in the hazy atelectasis in the right lung base. Stable significant opacification of the left lung base. IMPRESSION: Little change from prior. Electronically signed by Armin Harrison 05/05/2018 7:37 AM
--- NOTE | 2018-05-05 07:44 | PROGRESS NOTE ---
DATE: 05/05/2018 SUBJECTIVE: Mr. Page remains in atrial fibrillation. His heart rate is in the range of 90 to 105. He is having some output from the ileostomy. He has undergone a previous small bowel and right colon resection. He is tolerating tube feedings. He is still requiring mechanical ventilatory support. Arterial blood gases demonstrate a pH of 7.5, pCO2 of 37, PO2 of 112, and O2 saturation 98%. He is on assist control with a rate of 10, FiO2 of 60%, tidal volume 700, and PEEP of 7. He is on Solo-Synephrine for blood pressure support. Sputum cultures grew out Klebsiella. OBJECTIVE: Vital Signs: Temperature 92 degrees, pulse 17, BP 87/50. CV: Irregularly irregular. Lungs: Clear anteriorly. Abdomen: Soft, nontender, with active bowel sounds. No hepatosplenomegaly. No abdominal bruits. Extremities: Without edema. LABORATORY DATA: Laboratory studies were obtained. A CBC demonstrated a white count of 11.8, hemoglobin 10.1, hematocrit 31, and a platelet count of 391,000. Electrolytes demonstrated the following: Sodium 145, potassium 3.4, chloride 103, BUN 26, creatinine 0.5, and glucose 158. ASSESSMENT AND PLAN: 1. Acute respiratory failure with gram-negative pneumonia. We will continue ventilatory support. He is on DuoNeb nebulizer treatments and intravenous Zosyn. He is still requiring pressor support for his blood pressure. 2. Atrial fibrillation. He remains in atrial fibrillation. His heart rate is generally well controlled on amiodarone. 3. Hypokalemia. I will give him potassium chloride 40 mEq intravenously over 4 hours. 4. Severe protein calorie malnutrition. We will continue tube feedings. cc: Laura Jennings MD
[2018-05-05] MEDS: ASPIRIN NG SCH (08:46)
[2018-05-05] MEDS: CORDARONE FT SCH ×2 (08:46→20:25)
[2018-05-05] MEDS: LASIX IV SCH (08:47)
--- NOTE | 2018-05-05 09:57 | PULMONOLOGY PROGRESS NOTE ---
DATE: 05/05/2018 SUBJECTIVE: The patient does respond to pain. He does not follow commands. OBJECTIVE: Vital Signs: Maximum temperature in the last 24 hours was 99.4 degrees, BP 118/64, heart rate 111, respiratory rate 19, oxygen saturation 93%. HEENT: Pupils are equal and reactive. Oropharynx appears clear but bite block and endotracheal tube in place. Neck: Supple. Chest: Reveals rhonchi bilaterally with decreased breath sounds in the lung bases, left greater than right. Cardiac Examination: Irregularly irregular. Abdomen: Soft with good bowel sounds. Extremities: Reveal edema in the right hand. Laboratories: Immunoglobulin level is significantly reduced at 428. White blood count 11.08, hemoglobin 10.1, platelet count 391,000. Sodium 145, potassium 3.4, chloride 103, bicarbonate 30, BUN 26, creatinine 0.5, total protein 4.8, albumin 2.3. Chest x-ray reveals minimal atelectasis or mild infiltrate, right base, with opacification of the left lung base. Arterial blood gas reveals a pH of 7.57, pCO2 of 37, PO2 of 112. IMPRESSION: A 78-year-old with: 1. Klebsiella pneumonia. 2. Immunoglobulin deficiency. 3. Protein calorie malnutrition. 4. Acute hypoxemic respiratory failure, status post failed extubation. 5. Recent fall with fracture of the proximal humerus. 6. Status post ileocecal resection for bowel obstruction. 7. Atrial fibrillation with rapid ventricular response. RECOMMENDATIONS: 1. Increase Zosyn dosing to 3.375 g q.6 hours. 2. Transfuse immunoglobulin. We will give 20 g today and 20 g tomorrow given the severe reduction in his level. 3. Increase tube feeds. 4. Continue current ventilatory support. Time spent in critical care was 30 plus minutes. cc: MD Laura Alvarez MD
[2018-05-05] MEDS: GAMUNEX-C 10% IV SCH (10:35)
[2018-05-05] MEDS ORDERED: ZOSYN 3.375 GM in NS 50 ML IV SCH (15:00)
[2018-05-05] MEDS: NS 500 ML IV SCH (15:45)
[2018-05-05] MEDS: ZOSYN 3.375 GM in NS 50 ML IV SCH ×2 (15:49→21:09)
[2018-05-05] MEDS ORDERED: POTASSIUM CHLORIDE 20% LIQUID NG ONE (18:00)
--- NOTE | 2018-05-05 18:20 | GENERAL SURGERY PROGRESS NOTE ---
DATE: 05/05/2018 SUBJECTIVE: He remains on the ventilator on 70% FiO2, PEEP of 8, I believe. OBJECTIVE: Abdomen is soft. Ostomy is functioning. He is also on Levophed. He is on trophic tube feeds. Lower extremity edema. White count is 11, hematocrit is 31. I reviewed his ABG. Creatinine is 0.5. Prealbumin is 6.3. I reviewed his chest x-ray. ASSESSMENT AND PLAN: A 78-year-old gentleman who is status post bowel resection and ileocecectomy, with perforation related to distal obstruction. He is tenuous from cardiovascular and pulmonary standpoints. He is profoundly malnourished. He is on trophic tube feeds and his bowels are functioning. We will monitor him closely. He is on antibiotics for aspiration pneumonia. I have talked to the family who is here at the bedside. cc: MD Laura Easley MD
[2018-05-06] MEDS: MORPHINE IV PRN ×5 (01:00→21:51)
[2018-05-06] MEDS: ATIVAN IV PRN ×4 (02:57→17:59)
[2018-05-06] MEDS: ZOSYN 3.375 GM in NS 50 ML IV SCH ×4 (02:57→21:56)
[2018-05-06 04:28] LABS: ALLEN TEST YES; BLOOD TYPE ARTERIAL; HCO3-(ACT) 33.5 mmoll (20.0-26.0); O2(CT) 12.9 mL/dL (15.0-23.0); O2HB 95.5 % (95.0-99.0); PCO2(98.6) 44 mmHg (35-45); PO2(98.6) 77 mmHg (60-100); SAMPLE BLOOD; SAO2 98.2 % (95.0-100.0); SRATE 8 BPM; THB 9.5 g/dL (11.5-17.4); TVOL 700 mL; pH(98.6) 7.51 (7.35-7.45)
[2018-05-06 04:30] LABS: MODALITY VENTILATOR
[2018-05-06] MEDS: PROTONIX IV SCH (05:21)
[2018-05-06] MEDS: LOVENOX SUBQ SCH (05:21)
[2018-05-06 05:32] LABS: BASO# 0.02 X1000 (0.0-0.2); BASO% 0.2 % (0.0-0.8); EOS# 0.09 X1000 (0.0-0.7); EOS% 0.9 % (0.0-10.0); HEMATOCRIT 31.9 % (42.0-52.0); HEMOGLOBIN 10.1 g/dL (14.0-18.0); IMM GRAN# 0.02 X1000 (0.0-0.04); IMM GRAN% 0.2 % (0.0-0.5); MCH 29.2 PG (27-31); MCHC 31.7 g/dL (33-37); MCV 92.2 FL (81-99); MONO# 0.88 X1000 (0.11-0.59); MONO% 8.8 % (1.7-9.3); NEUT# 8.23 X1000 (1.4-6.5); NEUT% 81.9 % (42.2-75.2); PLT 419 X1000 (130-400); RBC 3.46 XMIL (4.7-6.1); RDW 14.4 % (11.5-14.5); WBC 10.04 X1000 (4.8-10.8)
[2018-05-06 06:02] LABS: AGAP 8; ALB/GLOB RATIO 0.9; ALBUMIN 2.3 g/dL (3.5-5.0); ALKALINE PHOSPHATASE 99 U/L (32-122); BUN 28 mg/dL (8-22); CALCIUM 8.2 mg/dL (8.8-10.2); CHLORIDE 102 mmol/L (98-107); COSMO 288; CREATININE 0.5 mg/dL (0.7-1.2); ESTIMATED GFR > 60; GLUCOSE 154 mg/dL (70-104); GOT 22 U/L (10-34); GPT 56 U/L (10-44); MAGNESIUM 1.7 mg/dL (1.5-2.7); PHOSPHORUS 2.2 mg/dL (2.7-4.5); POTASSIUM 3.8 mmol/L (3.5-5.1); SODIUM 140 mmol/L (136-145); TCO2 30 mmol/L (25-35); TOTAL BILIRUBIN 0.69 mg/dL (0.20-1.00)
--- NOTE | 2018-05-06 07:16 | Diag Imaging Result Doc PS360 ---
EXAM: CHEST-1 VIEW INDICATION: SOB TECHNIQUE: One view COMPARISON: 05/05/2018 FINDINGS: Support tubes and lines are in stable positions. Mild atelectasis at the right lung base is stable. There is increasing opacity at the left lung base likely representing an increasing pleural effusion with adjacent atelectasis and/or infiltrate. No other new consolidations are identified. Cardiac silhouette is stable. IMPRESSION: Increasing opacity at the left lung base as described. Electronically signed by Natanael Whitley 05/06/2018 7:14 AM
[2018-05-06] MEDS: LEVOPHED 8 MG in D5 1/2 NS 250 ML IV SCH ×2 (07:20→21:13)
[2018-05-06] MEDS: LASIX IV SCH (09:18)
[2018-05-06] MEDS: CORDARONE FT SCH ×2 (09:18→20:44)
[2018-05-06] MEDS: ASPIRIN NG SCH (09:18)
[2018-05-06] MEDS: GAMUNEX-C 10% IV SCH (10:10)
[2018-05-06] MEDS: NS 500 ML IV SCH (13:29)
--- NOTE | 2018-05-06 14:20 | GENERAL SURGERY PROGRESS NOTE ---
DATE: 05/06/2018 SUBJECTIVE: Clinically about the same. On low-dose Levophed, somewhat of weaning dose. He is down on his ventilator settings. I reviewed his x-rays. OBJECTIVE: Abdomen: Soft. He is tolerating feeds at 35. Ostomy is pink. LABS: I reviewed his labs. White count down to 10, hematocrit 31. ASSESSMENT AND PLAN: This is a 78-year-old gentleman with respiratory and hemodynamic failure after exploratory laparotomy. Very slow improvements, if any. We will continue management and treatment of his pneumonias. From a GI standpoint, his bowels are functioning appropriately. He is tolerating enteral feeds. cc: MD Laura Easley MD
--- NOTE | 2018-05-06 15:00 | Diag Imaging Result Doc PS360 ---
EXAM: CT THORAX W/O CONTRAST 05/06/2018 HISTORY: increasing left base opacification TECHNIQUE: This exam was performed using automated exposure control, adjustment of mA or kV according to patient size, and/or use of iterative reconstruction technique. COMMENT: There are no previous thoracic studies available for comparison. There is patchy opacity in the right lower lobe and near complete atelectasis of the left lower lobe due to large left pleural fluid collection. There is a somewhat smaller fluid collection on the right. Compared to the previous abdominal study of 04/27/2018 the pleural fluid collection on the left was not present. There was previously a small pleural fluid collection on the right. There is ascites which was only visible previously in the pelvis. There are secretions obscuring the left mainstem bronchus. There is an endotracheal tube with its tip well above the yinka. There are extensive arterial calcifications. There is pneumoperitoneum and surgical skin clips are seen anteriorly. The right upper and middle lobes are relatively clear. There is a comminuted fracture of the proximal right humerus. IMPRESSION: Large left pleural effusion. Patchy opacities in the right lower lobe possibly representing pneumonia. Electronically signed by Lan Robin 05/06/2018 2:58 PM
--- NOTE | 2018-05-06 17:42 | PROGRESS NOTE ---
DATE: 05/06/2018 SUBJECTIVE: Mr. Page has acute respiratory failure with hypoxia secondary to gram-negative pneumonia and acute on chronic congestive heart failure secondary to systolic dysfunction. He required re-intubation at the end of last week. He continues with periods of desaturation. His O2 saturations have dropped down into the 70s. They increased the FiO2 to 80% on the ventilator. A CT scan of the thorax demonstrated a large left pleural effusion and infiltrates in the right lower lobe. Sputum cultures grew out Klebsiella pneumoniae. IgG subsets were suppressed. He has gotten a second dosage of IV IgG today. Blood pressure is ranging from 113-130 systolically, whereas his diastolic blood pressures have been in the 50s and 60s. They have increased the dosage of Levophed to 11 mcg per minute. He continues to tolerate tube feedings and is having some output. He did have a partial small-bowel obstruction secondary to a volvulus. He remains in atrial fibrillation. His heart rate has been in the range of 95% to 110. OBJECTIVE: Vital signs: Temperature 98.7 degrees, pulse 110 and irregular, respiratory rate 17, BP 128/73. Cardiovascular: Irregularly irregular. Lungs: Diminished breath sounds in the bases bilaterally. Abdomen: Soft, nontender, with active bowel sounds. Extremities: Trace ankle edema. LABORATORY DATA: Various laboratory studies were obtained. A CBC demonstrated a white count of 10.04, hemoglobin 10.1, hematocrit 31.9, and a platelet count of 419,000. Electrolytes demonstrated the following: Sodium 140, potassium 3.8, BUN 28, creatinine 0.5, and glucose 154. His albumin was 2.3. His most recent pre-albumin was 6.3. ASSESSMENT AND PLAN: 1. Acute respiratory failure with hypoxia secondary to acute on chronic congestive heart failure secondary to systolic dysfunction and gram-negative pneumonia. 2. Chronic atrial fibrillation. 3. Partial small-bowel obstruction secondary to volvulus status post exploratory laparotomy with small-bowel resection. 4. Severe protein-calorie malnutrition. Unfortunately Mr. Page continues to decline clinically. He is requiring increasing ventilatory support as well as increasing pressor support to maintain his blood pressure. We will continue ventilatory support, DuoNeb nebulizer treatments, and broad-spectrum antibiotics including Zosyn. Hopefully, administration of IV IgG will bolster his immune system. He remains in atrial fibrillation on the amiodarone. His heart rate is slightly elevated. He has not tolerated Lopressor in the past because of hypotension. We will continue tube feedings. His overall prognosis is poor. I had a long talk with Ms. Page. She understands that is continuing to decline clinically and that his prognosis is guarded. She has asked that in the event of a cardiopulmonary arrest, no heroic measures should be undertaken. A No Code Blue Level 1 has been established. cc: Laura Jennings MD
--- NOTE | 2018-05-06 18:20 | PULMONOLOGY PROGRESS NOTE ---
DATE: 05/06/2018 SUBJECTIVE: The patient is sedated but arousable. OBJECTIVE: Vital Signs: Maximum temperature in the last 24 hours is 100 degrees, BP 130/72, heart rate 105, respiratory rate 17, oxygen saturation 100% on 50% FiO2. HEENT: Pupils are equal and reactive. Oropharynx appears clear but dry. Neck: Supple. Chest: Reveals coarse rhonchi bilaterally with decreased breath sounds left base. Cardiac exam: Increased rate, irregular rhythm. Abdomen: Soft with positive bowel sounds. Extremities: Reveal 1+ peripheral edema. LABORATORIES: Sodium 140, potassium 3.8, chloride 102, bicarbonate 30, BUN 28, creatinine 0.5, phosphorus 2.2, total protein 5.0, albumin 2.3. White blood count 10.04, hemoglobin 10.1, platelet count 419,000. Chest x-ray reveals increasing opacity at the left base. IMPRESSION: A 78-year-old with: 1. Klebsiella pneumonia. 2. Immunoglobulin deficiency. 3. Status post ileocecal resection for bowel obstruction. 4. Acute hypoxemic respiratory failure with prior failed extubation following surgery. 5. Protein calorie malnutrition. 6. Atrial fibrillation with rapid ventricular response. 7. Increasing opacification at the left base. RECOMMENDATION: 1. Continue Zosyn. 2. Transfuse 2nd dose of immunoglobulin this morning. 3. Continue tube feeds. 4. Check cortisol level given ongoing hypotension. 5. Check CT scan of the thorax for better evaluation of the left base. TIME SPENT: In critical care management 30+ minutes. cc: MD Laura Alvarez MD
[2018-05-06] MEDS: MUCOMYST 20% INH SCH (19:18)
[2018-05-06] MEDS: DUONEB (A & A) INH SCH ×2 (19:18→23:21)
[2018-05-07] MEDS: MORPHINE IV PRN ×6 (01:31→22:19)
[2018-05-07] MEDS: ATIVAN IV PRN ×6 (02:47→23:14)
[2018-05-07] MEDS: DUONEB (A & A) INH SCH ×6 (03:21→22:48)
[2018-05-07] MEDS: ZOSYN 3.375 GM in NS 50 ML IV SCH ×4 (03:55→20:39)
[2018-05-07 04:32] LABS: ALLEN TEST YES; BE 8.6 mmoll (-3.0-3.0); BLOOD TYPE ARTERIAL; HCO3-(ACT) 31.6 mmoll (20.0-26.0); METHB 0.7 % (0.0-1.5); O2(CT) 14.8 mL/dL (15.0-23.0); O2HB 96.9 % (95.0-99.0); PCO2(98.6) 43 mmHg (35-45); PO2(98.6) 138 mmHg (60-100); SAMPLE BLOOD; SAO2 99.2 % (95.0-100.0); SRATE 8 BPM; THB 10.7 g/dL (11.5-17.4); TVOL 700 mL; pH(98.6) 7.49 (7.35-7.45)
[2018-05-07 04:34] LABS: MODALITY VENTILATOR
[2018-05-07] MEDS: LOVENOX SUBQ SCH (05:22)
[2018-05-07] MEDS: PROTONIX IV SCH (05:22)
[2018-05-07] MEDS: LEVOPHED 8 MG in D5 1/2 NS 250 ML IV SCH ×3 (06:00→20:30)
[2018-05-07 06:37] LABS: BASO# 0.01 X1000 (0.0-0.2); BASO% 0.1 % (0.0-0.8); EOS# 0.07 X1000 (0.0-0.7); EOS% 0.6 % (0.0-10.0); HEMOGLOBIN 9.8 g/dL (14.0-18.0); IMM GRAN# 0.04 X1000 (0.0-0.04); IMM GRAN% 0.4 % (0.0-0.5); LYMPH# 0.74 X1000 (1.2-3.4); LYMPH% 6.7 % (20.5-51.1); MCH 29.1 PG (27-31); MCHC 31.6 g/dL (33-37); MPV 11.1 FL (7.4-10.4); NEUT# 9.23 X1000 (1.4-6.5); NEUT% 83.2 % (42.2-75.2); PLT 461 X1000 (130-400); RBC 3.37 XMIL (4.7-6.1); RDW 14.4 % (11.5-14.5); WBC 11.09 X1000 (4.8-10.8)
[2018-05-07 07:12] LABS: AGAP 9; ALB/GLOB RATIO 0.7; ALBUMIN 2.3 g/dL (3.5-5.0); ALKALINE PHOSPHATASE 101 U/L (32-122); BUN 28 mg/dL (8-22); CALCIUM 8.2 mg/dL (8.8-10.2); CHLORIDE 102 mmol/L (98-107); COSMO 289; CREATININE 0.4 mg/dL (0.7-1.2); ESTIMATED GFR > 60; GLUCOSE 177 mg/dL (70-104); GOT 19 U/L (10-34); GPT 43 U/L (10-44); POTASSIUM 3.4 mmol/L (3.5-5.1); SODIUM 140 mmol/L (136-145); TCO2 29 mmol/L (25-35); TOTAL BILIRUBIN 0.44 mg/dL (0.20-1.00); TOTAL PROTEIN 5.5 g/dL (6.3-8.3)
--- NOTE | 2018-05-07 07:14 | Diag Imaging Result Doc PS360 ---
EXAM: CHEST-1 VIEW 05/07/2018 HISTORY: SOB TECHNIQUE: AP portable at 0531 COMMENT: The inspiration is slightly less optimal than on 05/06/2018. There continues to be obscuration of the left diaphragm and opacity in the left lower lobe. There is some atelectasis over the right hemidiaphragm. The endotracheal tube and NG tube remain in place. IMPRESSION: Poor inspiration. Left lower lobe pneumonia. Electronically signed by Lan Robin 05/07/2018 7:12 AM
[2018-05-07] MEDS: MUCOMYST 20% INH SCH ×2 (07:45→19:06)
[2018-05-07] MEDS: CORDARONE FT SCH ×2 (08:31→20:39)
[2018-05-07] MEDS: LASIX IV SCH (08:32)
[2018-05-07] MEDS: ASPIRIN NG SCH (08:32)
--- NOTE | 2018-05-07 09:46 | PROGRESS NOTE ---
DATE: 05/07/2018 SUBJECTIVE: I am filling in for Dr. Luiz Jennings. Mr. Page has required no acute intervention overnight. He is on the ventilator with pressor support. He is a Do Not Resuscitate. He is unable to answer any questions. There is no family in the room, but I did discuss with the patient's nurse his ongoing issues. She expressed no acute concerns. OBJECTIVE: Vital Signs: Pulse rate is 81, blood pressure is 89/56, 100% saturated on mechanical ventilator support. General: The patient has a few crackles in the right base with full inspiration. The left side sounds considerably more coarse with crackles. I do not detect any expiratory wheezing. Air movement seems fair, although there are decreased breath sounds in the left base. Cardiovascular: Irregularly, irregular, approximately 90 beats per minute on the monitor. Extremities: The patient's lower extremities have a purple mottled appearance. Doppler pulses have been checked and have been adequate. Capillary refill is delayed. LABORATORY: White cell count 11.9, hemoglobin 9.8. ABG shows moderate respiratory alkalosis with pH of 7.49, pCO2 43, and PO2 of 138. He is 99 percent saturated on assist-control ventilation at 50% FiO2. Potassium is 3.4, BUN 28, creatinine 0.4, blood sugar 177. ASSESSMENT AND PLAN: 1. The patient's acute respiratory failure with hypoxemia was secondary to gram-negative pneumonia and a history of chronic systolic congestive heart failure. He continues to be on pressor support and IV antibiotics. He will remain on the ventilator. 2. Chronic atrial fibrillation, aware. No changes have been noted here. 3. The patient's partial small bowel obstruction secondary to volvulus has been corrected via exploratory laparotomy with small-bowel resection. He is tolerating tube feedings well with no significant residuals. This will continue as previously. 4. Severe protein calorie malnutrition is noted. 5. The patient's clinical standing is essentially the same as yesterday. He has full support from a respiratory and cardiovascular standpoint. His overall prognosis is poor. I will try and find the family in the waiting room and speak with them briefly as to the findings today. 6. No Code Level 1. cc: MD Laura Leung MD
--- NOTE | 2018-05-07 10:51 | PULMONOLOGY PROGRESS NOTE ---
DATE: 05/07/2018 SUBJECTIVE: The patient is sedated on mechanical ventilation. He remains on Levophed. OBJECTIVE: Vital signs: Blood pressure 112/54, heart rate 85, respiratory rate 16, oxygen saturation 98%. HEENT: Pupils are equal. Oropharynx appears clear with endotracheal tube in place. Neck: Supple. Chest: Reveals coarse rhonchi with decreased breath sounds at the left base. Cardiac: S1, S2. Abdomen: Soft with good bowel sounds. Extremities: Reveal trace edema. DIAGNOSTIC STUDIES: CT scan of the thorax reveals consolidation of the left base with a large left pleural collection and a smaller fluid collection on the right. Ascites is present. Mucus in the left mainstem with consolidation of the left lung base/left lower lobe. Chemistry: Sodium 140, potassium 3.4, chloride 102, bicarbonate 29, BUN 28, creatinine 0.4, glucose 177. Cortisol 16.3. White blood count 11.09, hemoglobin 9.8, platelet count 461,000. Chest x-ray reveals consolidation in the left base. IMPRESSION: A 78-year-old with: 1. Klebsiella pneumonia. 2. Immunoglobulin deficiency. 3. Adrenal insufficiency with borderline cortisol level. 4. Acute hypoxemic respiratory failure with failed extubation. 5. Protein-calorie malnutrition. 6. Pleural effusions. 7. Atrial fibrillation with rapid ventricular response. RECOMMENDATIONS: 1. Continue antibiotics for Klebsiella pneumonia. 2. Follow up immunoglobulin level in 2-3 weeks since he has received 2 doses of infusion. 3. Increase tube feed to goal rate. 4. Initiate steroids. We will give a low-dose to prevent risk of increased fungemia. 5. Discussed pleural effusion with Radiology. Would consider pigtail catheter drainage if they can achieve this to help re-expand the left lung and to ensure he does not have empyema in the left chest. CRITICAL CARE TIME: 30-plus minutes. cc: MD Laura Alvarez MD
[2018-05-07] MEDS: SOLU-MEDROL IV SCH (11:02)
[2018-05-07] MEDS: HALDOL IV PRN (12:59)
[2018-05-07] MEDS: NS 500 ML IV SCH (14:56)
--- NOTE | 2018-05-07 19:06 | GENERAL SURGERY PROGRESS NOTE ---
DATE: 05/07/2018 SUBJECTIVE: Clinically about the same. He is tolerating tube feeds. OBJECTIVE: Abdomen is soft. Ostomy is functioning. He is off Levophed. Weaning ventilator settings. I have reviewed his labs, his ABG, and his chest x-ray. ASSESSMENT AND PLAN: A 78-year-old gentleman status post exploratory laparotomy for bowel resection and ileostomy. Dr. Jacob is following as well as the hospitalist service. I appreciate their help. We will continue to monitor surgically, but from a GI standpoint, he is doing okay. cc: MD Laura Easley MD
[2018-05-08] MEDS: LEVOPHED 8 MG in D5 1/2 NS 250 ML IV SCH ×3 (01:53→10:58)
[2018-05-08] MEDS: ZOSYN 3.375 GM in NS 50 ML IV SCH ×4 (03:18→19:59)
[2018-05-08] MEDS: ATIVAN IV PRN ×2 (03:18→08:17)
[2018-05-08] MEDS: DUONEB (A & A) INH SCH ×6 (03:31→22:46)
[2018-05-08 04:30] LABS: ALLEN TEST YES; BE 11.1 mmoll (-3.0-3.0); BLOOD TYPE ARTERIAL; HCO3-(ACT) 33.5 mmoll (20.0-26.0); METHB 0.8 % (0.0-1.5); O2(CT) 13.9 mL/dL (15.0-23.0); O2HB 94.8 % (95.0-99.0); PCO2(98.6) 43 mmHg (35-45); PO2(98.6) 73 mmHg (60-100); SAMPLE BLOOD; SAO2 97.3 % (95.0-100.0); SRATE 6 BPM; THB 10.4 g/dL (11.5-17.4); TVOL 800 mL; pH(98.6) 7.52 (7.35-7.45)
[2018-05-08 04:31] LABS: MODALITY VENTILATOR
[2018-05-08] MEDS: MORPHINE IV PRN ×2 (05:41→08:24)
[2018-05-08] MEDS: PROTONIX IV SCH (05:41)
[2018-05-08] MEDS: LOVENOX SUBQ SCH (05:41)
[2018-05-08 06:06] LABS: BASO# 0.01 X1000 (0.0-0.2); BASO% 0.1 % (0.0-0.8); EOS# 0.01 X1000 (0.0-0.7); EOS% 0.1 % (0.0-10.0); HEMATOCRIT 30.8 % (42.0-52.0); HEMOGLOBIN 9.7 g/dL (14.0-18.0); IMM GRAN# 0.02 X1000 (0.0-0.04); IMM GRAN% 0.2 % (0.0-0.5); LYMPH# 0.82 X1000 (1.2-3.4); LYMPH% 6.7 % (20.5-51.1); MCH 28.8 PG (27-31); MCHC 31.5 g/dL (33-37); MCV 91.4 FL (81-99); MONO# 1.01 X1000 (0.11-0.59); MONO% 8.2 % (1.7-9.3); MPV 10.9 FL (7.4-10.4); NEUT% 84.7 % (42.2-75.2); PLT 554 X1000 (130-400); RBC 3.37 XMIL (4.7-6.1); RDW 14.3 % (11.5-14.5); WBC 12.27 X1000 (4.8-10.8)
[2018-05-08 06:20] LABS: AGAP 11; ALB/GLOB RATIO 0.8; ALBUMIN 2.5 g/dL (3.5-5.0); ALKALINE PHOSPHATASE 119 U/L (32-122); BUN 28 mg/dL (8-22); CALCIUM 8.5 mg/dL (8.8-10.2); CHLORIDE 102 mmol/L (98-107); COSMO 292; CREATININE 0.4 mg/dL (0.7-1.2); ESTIMATED GFR > 60; GLUCOSE 190 mg/dL (70-104); GOT 18 U/L (10-34); GPT 40 U/L (10-44); POTASSIUM 3.6 mmol/L (3.5-5.1); SODIUM 141 mmol/L (136-145); TCO2 28 mmol/L (25-35); TOTAL BILIRUBIN 0.42 mg/dL (0.20-1.00); TOTAL PROTEIN 5.6 g/dL (6.3-8.3)
[2018-05-08 06:34] LABS: MAGNESIUM 1.6 mg/dL (1.5-2.7); PHOSPHORUS 2.8 mg/dL (2.7-4.5)
--- NOTE | 2018-05-08 06:51 | Diag Imaging Result Doc PS360 ---
CHEST-PORTABLE - 05/08/2018 INDICATION: intubated COMPARISON: 05/07/2018 FINDINGS: Support tubes are stable. Lung volumes are improved but still low. There has been improved aeration of the lung bases bilaterally. There is still significant consolidation or collapse of the left lower lobe. Heart size is top normal. IMPRESSION: Significant improvement from prior. Electronically signed by Armin Harrison 05/08/2018 6:49 AM
[2018-05-08] MEDS: MUCOMYST 20% INH SCH ×2 (08:01→19:18)
[2018-05-08] MEDS: CORDARONE FT SCH ×2 (08:17→20:00)
[2018-05-08] MEDS: SOLU-MEDROL IV SCH (08:17)
[2018-05-08] MEDS: HALDOL IV PRN (08:17)
[2018-05-08] MEDS: ASPIRIN NG SCH (08:17)
[2018-05-08] MEDS: LASIX IV SCH (08:17)
[2018-05-08] MEDS: DIPRIVAN 1% 1,000 MG/100 ML BOTTLE IV SCH ×2 (11:22→19:58)
--- NOTE | 2018-05-08 13:40 | PULMONOLOGY PROGRESS NOTE ---
DATE: 05/08/2018 SUBJECTIVE: The patient will arouse to stimulus, but will not follow commands. Nursing reports he continues to require Ativan and morphine and Haldol to keep him from pulling endotracheal tube. OBJECTIVE: Vital Signs: The patient remains on vasopressors. Blood pressure 151/69, heart rate 94, respiratory rate 17, oxygen saturation 96% on mechanical ventilation. Maximum temperature in the last 24 hours 99.2 degrees HEENT pupils are equal and reactive. Oropharynx appears clear. Neck is supple. Chest reveals good air entry in both lung bases. Cardiac exam S1, S2. Abdomen soft with positive bowel sounds. Extremities reveal 1+ peripheral edema. LABORATORIES: Chest x-ray continues to show consolidation at the left base, but with significant improvement. White blood count 12.27, hemoglobin 9.7, platelet count 554,000. Arterial blood gas pH 7.52, pCO2 of 43, pO2 of 73. Chemistries sodium 141, potassium 3.6, chloride 102, bicarbonate 28, BUN 28, creatinine 0.4. Microbiology reveals no new data. IMPRESSION: A 78-year-old with 1. Acute hypoxemic respiratory failure with failed extubation. 2. Klebsiella pneumonia. 3. Immunoglobulin deficiency. 4. Adrenal insufficiency with borderline cortisol level. 5. Protein calorie malnutrition. 6. Ascites and pleural effusions. 7. Atrial fibrillation. DISCUSSION: The patient with problems outlined above. He has had marginal improvement in chest x- ray with decreased atelectasis and decreased oxygen requirements. He continues to fail ventilatory weaning trial, although he is improving. Mental status is difficult to gauge due to frequent dose of Ativan and morphine. RECOMMENDATION: 1. Discontinue Ativan and decrease morphine dosing. Will initiate Diprivan for sedation, so that it can be reversed, so that mental status can be reviewed in the morning. 2. Continue current antibiotic regimen. 3. Continue tube feeds. 4. Continue low-dose steroids. 5. Consider aspiration of ascites if he has change in clinical status such as increasing white blood count or increasing fevers. TIME SPENT IN CRITICAL CARE: 30 plus minutes. cc: MD Laura Alvarez MD
[2018-05-08] MEDS: NS 500 ML IV SCH (13:57)
--- NOTE | 2018-05-08 15:11 | PROGRESS NOTE ---
DATE: 05/08/2018 SUBJECTIVE: The patient is not really responsive. He is on the ventilator, he cannot answer questions in a meaningful fashion. I spoke with the patient's nurse, and after my exam I spoke with the family. It is noted that the patient's Levophed level has increased overnight and he is still hypotensive. OBJECTIVE: Vital signs: Pulse rate of 73, blood pressure 114/52, respiratory rate 20 on the ventilator, 95% saturated on 30% FiO2. General: Patient has bilateral coarse breath sounds with good air movement. Abdomen: Shows bowel sounds. Cardiovascular: Exam shows it is irregular, and this is confirmed by monitor readings. Extremities: Trace to 1+ peripheral edema. ASSESSMENT AND PLAN: 1. The patient remains on fairly high pressure support for his Klebsiella pneumoniae, and we will continue antibiotic and respiratory treatment. There are no immediate plans to attempt extubation. 2. Dr. Jacob's note indicates inadequate cortisol levels. 3. We are aware of the patient's immunoglobulin deficiency. 4. Chronic atrial fibrillation is stable. 5. The patient's GI difficulty seems to have been abated surgically, and he is tolerating tube feedings reasonably well. He does have protein calorie malnutrition. 6. The patient's mental status is in question. I noted in Dr. Jacob's dictation that he plans on changing his sedation medications so that we can better assess his overall mental status when off medication. 7. No code blue level 1. 8. I spoke to the family and informed them of today's findings. cc: MD Laura Leung MD
--- NOTE | 2018-05-08 17:45 | GENERAL SURGERY PROGRESS NOTE ---
DATE: 05/08/2018 SUBJECTIVE: Clinically about the same. Remains on the ventilator and low-dose Levophed. No fevers. No tachycardia. OBJECTIVE: Vital signs: Blood pressure 140/61. Abdomen: Soft. Incision intact. Ostomy is viable. LABS: I reviewed his labs. ASSESSMENT AND PLAN: This is a 78-year-old gentleman with prolonged ICU course. Slow ventilator wean. Surgically, he is tolerating his tube feeds and his bowels are functioning. We will follow along. cc: MD Laura Easley MD MTDD
[2018-05-09] MEDS: ZOSYN 3.375 GM in NS 50 ML IV SCH ×4 (02:17→20:27)
[2018-05-09] MEDS: DUONEB (A & A) INH SCH ×6 (02:45→23:45)
[2018-05-09 04:30] LABS: ALLEN TEST YES; BE 7.4 mmoll (-3.0-3.0); BLOOD TYPE ARTERIAL; HCO3-(ACT) 30.7 mmoll (20.0-26.0); O2(CT) 13.4 mL/dL (15.0-23.0); O2HB 97.6 % (95.0-99.0); PCO2(98.6) 40 mmHg (35-45); PO2(98.6) 92 mmHg (60-100); SAMPLE BLOOD; SAO2 100.3 % (95.0-100.0); SRATE 6 BPM; THB 9.7 g/dL (11.5-17.4); TVOL 800 mL
[2018-05-09 04:31] LABS: MODALITY VENTILATOR
[2018-05-09] MEDS: MORPHINE IV PRN ×3 (05:02→22:30)
[2018-05-09] MEDS: LEVOPHED 8 MG in D5 1/2 NS 250 ML IV SCH (05:02)
[2018-05-09] MEDS: LOVENOX SUBQ SCH (05:02)
[2018-05-09] MEDS: SODIUM CHLORIDE 0.9% INJ SCH (05:03)
[2018-05-09] MEDS: PROTONIX IV SCH (05:03)
[2018-05-09] MEDS: DIPRIVAN 1% 1,000 MG/100 ML BOTTLE IV SCH (05:08)
[2018-05-09 06:07] LABS: BASO# 0.01 X1000 (0.0-0.2); BASO% 0.1 % (0.0-0.8); EOS# 0.08 X1000 (0.0-0.7); EOS% 0.7 % (0.0-10.0); HEMOGLOBIN 9.1 g/dL (14.0-18.0); IMM GRAN# 0.03 X1000 (0.0-0.04); IMM GRAN% 0.3 % (0.0-0.5); LYMPH# 0.77 X1000 (1.2-3.4); LYMPH% 6.8 % (20.5-51.1); MCH 28.8 PG (27-31); MCHC 31.4 g/dL (33-37); MCV 91.8 FL (81-99); MONO# 0.98 X1000 (0.11-0.59); MONO% 8.7 % (1.7-9.3); MPV 10.9 FL (7.4-10.4); NEUT% 83.4 % (42.2-75.2); PLT 488 X1000 (130-400); RBC 3.16 XMIL (4.7-6.1); RDW 14.3 % (11.5-14.5); WBC 11.27 X1000 (4.8-10.8)
[2018-05-09 06:30] LABS: AGAP 10; ALB/GLOB RATIO 0.9; ALBUMIN 2.4 g/dL (3.5-5.0); ALKALINE PHOSPHATASE 127 U/L (32-122); BUN 31 mg/dL (8-22); CALCIUM 8.1 mg/dL (8.8-10.2); CHLORIDE 101 mmol/L (98-107); COSMO 288; CREATININE 0.4 mg/dL (0.7-1.2); ESTIMATED GFR > 60; GLUCOSE 140 mg/dL (70-104); GOT 37 U/L (10-34); GPT 53 U/L (10-44); POTASSIUM 3.4 mmol/L (3.5-5.1); SODIUM 140 mmol/L (136-145); TCO2 29 mmol/L (25-35); TOTAL BILIRUBIN 0.43 mg/dL (0.20-1.00); TOTAL PROTEIN 5.1 g/dL (6.3-8.3)
--- NOTE | 2018-05-09 07:10 | Diag Imaging Result Doc PS360 ---
EXAM: CHEST-PORTABLE 05/09/2018 HISTORY: ventilator TECHNIQUE: AP portable at 0544 COMMENT: There is alveolar opacity in the left lower lobe which has worsened slightly since 05/08/2018. The right lung is clear. There is an NG tube which passes below the diaphragm. There is an endotracheal tube with its tip at the thoracic inlet. IMPRESSION: Worsened atelectasis and/or pneumonia left lower lobe. Electronically signed by Lan Robin 05/09/2018 7:07 AM
[2018-05-09] MEDS: MUCOMYST 20% INH SCH ×2 (08:14→19:50)
[2018-05-09] MEDS ORDERED: MAGNESIUM SULFATE 1 GM/D5W 1 GM/100 ML IVPB IV ONE (09:23)
[2018-05-09] MEDS ORDERED: POTASSIUM CHLORIDE 40 MEQ/SWI 40 MEQ/100 ML IVPB IV ONE (09:23)
[2018-05-09] MEDS: LASIX IV SCH (09:30)
[2018-05-09] MEDS: CORDARONE FT SCH (09:30)
[2018-05-09] MEDS: SOLU-MEDROL IV SCH (09:30)
[2018-05-09] MEDS: ASPIRIN NG SCH (09:30)
--- NOTE | 2018-05-09 09:53 | PROGRESS NOTE ---
DATE: 05/09/2018 SUBJECTIVE: The patient is sedated on propofol. He is on the ventilator. There is no family present in the room. I spoke with the patient's nurse and she reported no problems overnight. The patient's Levophed dose has been reduced to 7 mcg at the present time. VITAL SIGNS: Afebrile, 86, 19, 95/51. PHYSICAL EXAMINATION: General: The patient is seen to move or slightly respond to my exam, which has not been the case in previous days. I noted what appeared to be some type of swallowing reflex which he initiated on his own which I had noticed before. Lungs: The patient still has coarse breath sounds. I believe his air movement has improved somewhat over the course of time that I have been examining him. Cardiovascular: Irregularly irregular in the 80s. Extremities: Show trace edema. LABORATORY DATA: White count 11.2, hematocrit 29. ABG was 7.50, pH, pCO2 of 40, PO2 of 92, O2 saturation was 100% on 30% FiO2. This is controlled ventilation. Potassium was low at 3.4, BUN 31, creatinine 0.4, blood sugar 140. ASSESSMENT AND PLAN: 1. The patient's pressor support has been reduced. He still is relatively hypotensive, but maintaining MAPs around 60 or more. We will continue antibiotic and respiratory treatment for his Klebsiella pneumonia. A chest x-ray read by the radiologist states worsening in the left lower lobe, but to my eye, there is very little difference. I am unaware of any immediate attempts for extubation. 2. Chronic atrial fibrillation, stable. I need to check on the amiodarone dosing as it is relatively high at the present time. 1. Dr. Jacob has addressed the low cortisol levels with some IV steroids. 2. Immunoglobulin deficiency is noted. 3. The patient is tolerating tube feeds and gastrointestinal situation seems stable. 4. According to nursing notes, the patient responded reasonably to the switch to propofol and seemed to make some responses on the drug-free intervals. 5. No code blue level 1. 6. I will speak to the family before I leave the ICU. cc: MD Laura Leung MD
[2018-05-09 14:10] LABS: ALLEN TEST YES; BE 8.9 mmoll (-3.0-3.0); BLOOD TYPE ARTERIAL; HCO3-(ACT) 31.8 mmoll (20.0-26.0); METHB 1.1 % (0.0-1.5); O2(CT) 14.4 mL/dL (15.0-23.0); O2HB 95.3 % (95.0-99.0); PCO2(98.6) 49 mmHg (35-45); PO2(98.6) 87 mmHg (60-100); SAMPLE BLOOD; SAO2 97.7 % (95.0-100.0); THB 10.7 g/dL (11.5-17.4); pH(98.6) 7.45 (7.35-7.45)
[2018-05-09 14:12] LABS: MODALITY VENTILATOR
--- NOTE | 2018-05-09 14:43 | GENERAL SURGERY PROGRESS NOTE ---
DATE: 05/09/2018 SUBJECTIVE: Tolerating tube feeds. Ostomy is functioning. Remains on the ventilator and Levophed. Reviewed his labs. I reviewed his imaging. PHYSICAL EXAMINATION: His abdomen is soft. His ostomy is pink and viable. ASSESSMENT AND PLAN: This is a very ill gentleman, status post exploratory laparotomy. I appreciate the hospitalist and Pulmonary services help in managing this gentleman. From a GI standpoint, he is doing okay. cc: MD Laura Easley MD
[2018-05-09] MEDS: NS 500 ML IV SCH (16:17)
--- NOTE | 2018-05-09 16:54 | PULMONOLOGY PROGRESS NOTE ---
DATE: 05/09/2018 SUBJECTIVE: The patient is off propofol. He opens his eyes to voice commands. He nods appropriately. OBJECTIVE: Vital Signs: BP 100/54, heart rate 91, respiratory rate 17, oxygen saturation 98% on 30% FiO2. HEENT: Pupils are equal and reactive. Oropharynx appears clear. Neck: Is supple. Chest: Reveals coarse rhonchi bilaterally. Cardiac exam: S1, S2. Abdomen: Soft with good bowel sounds. Extremities: Reveal trace edema. LABORATORIES: Chest x-ray reveals retrocardiac consolidation on the left without major change although the radiologist indicates slight worsening. White blood count 11.27, hemoglobin 9.1, platelet count 488,000. Arterial blood gas on 30% FiO2, pH 7.50, pCO2 of 40, PO2 of 92. Sodium 140, potassium 3.4, chloride 101, bicarbonate 29, BUN 31, creatinine 0.4, glucose 140, total protein 5.1, albumin 2.4. IMPRESSION: A 78-year-old with 1. Klebsiella pneumonia. 2. Acute hypoxemic respiratory failure. 3. Status post failed extubation. 4. Immunoglobulin deficiency. 5. Adrenal insufficiency. 6. Protein calorie malnutrition. 7. Ascites and pleural effusions. 8. Atrial fibrillation. DISCUSSION: The patient continues to slowly improve. He is arousable to alert. He was placed on a spontaneous breathing trial about 1 hour ago and clinically is doing well with a respiratory shallow breathing index of 70. PLAN: 1. Obtain arterial blood gas now. If it is adequate, we will proceed with extubation. 2. Continue current antibiotic regimen. 3. Continue bronchial hygiene. 4. Continue low-dose steroids. TIME SPENT CRITICAL CARE: 30+ minutes. cc: MD Laura Alvarez MD
[2018-05-10] MEDS: MORPHINE IV PRN ×4 (03:12→19:57)
[2018-05-10] MEDS: ZOSYN 3.375 GM in NS 50 ML IV SCH ×4 (03:13→21:34)
[2018-05-10] MEDS: DUONEB (A & A) INH SCH ×6 (03:55→23:33)
[2018-05-10] MEDS: LOVENOX SUBQ SCH (05:04)
[2018-05-10] MEDS: PROTONIX IV SCH (05:04)
[2018-05-10 05:18] LABS: ALLEN TEST YES; BE 7.5 mmoll (-3.0-3.0); BLOOD TYPE ARTERIAL; HCO3-(ACT) 30.8 mmoll (20.0-26.0); O2HB 96.3 % (95.0-99.0); PCO2(98.6) 39 mmHg (35-45); PO2(98.6) 93 mmHg (60-100); SAMPLE BLOOD; SAO2 97.6 % (95.0-100.0); THB 9.5 g/dL (11.5-17.4); pH(98.6) 7.51 (7.35-7.45)
[2018-05-10 05:19] LABS: MODALITY BI PAP
[2018-05-10 06:49] LABS: BASO# 0.01 X1000 (0.0-0.2); BASO% 0.1 % (0.0-0.8); EOS# 0.27 X1000 (0.0-0.7); EOS% 2.2 % (0.0-10.0); HEMATOCRIT 31.1 % (42.0-52.0); HEMOGLOBIN 9.7 g/dL (14.0-18.0); IMM GRAN# 0.05 X1000 (0.0-0.04); IMM GRAN% 0.4 % (0.0-0.5); LYMPH# 0.71 X1000 (1.2-3.4); LYMPH% 5.7 % (20.5-51.1); MCH 28.4 PG (27-31); MCHC 31.2 g/dL (33-37); MCV 90.9 FL (81-99); MONO# 1.03 X1000 (0.11-0.59); MONO% 8.2 % (1.7-9.3); MPV 11.6 FL (7.4-10.4); NEUT# 10.46 X1000 (1.4-6.5); NEUT% 83.4 % (42.2-75.2); PLT 452 X1000 (130-400); RBC 3.42 XMIL (4.7-6.1); RDW 14.2 % (11.5-14.5); WBC 12.53 X1000 (4.8-10.8)
[2018-05-10] MEDS: LEVOPHED 8 MG in D5 1/2 NS 250 ML IV SCH ×2 (07:08→21:37)
[2018-05-10 07:33] LABS: AGAP 15; ALB/GLOB RATIO 0.8; ALBUMIN 2.3 g/dL (3.5-5.0); ALKALINE PHOSPHATASE 126 U/L (32-122); BUN 29 mg/dL (8-22); CALCIUM 8.4 mg/dL (8.8-10.2); CHLORIDE 100 mmol/L (98-107); COSMO 287; CREATININE 0.5 mg/dL (0.7-1.2); ESTIMATED GFR > 60; GLUCOSE 96 mg/dL (70-104); GOT 38 U/L (10-34); GPT 62 U/L (10-44); POTASSIUM 3.6 mmol/L (3.5-5.1); SODIUM 141 mmol/L (136-145); TCO2 26 mmol/L (25-35); TOTAL PROTEIN 5.1 g/dL (6.3-8.3)
[2018-05-10] MEDS: SOLU-MEDROL IV SCH (08:03)
[2018-05-10] MEDS: LASIX IV SCH (08:03)
[2018-05-10] MEDS: CORDARONE FT SCH (08:04)
[2018-05-10] MEDS: ASPIRIN NG SCH (08:04)
[2018-05-10] MEDS: MUCOMYST 20% INH SCH ×2 (08:29→19:46)
--- NOTE | 2018-05-10 11:39 | PROGRESS NOTE ---
DATE: 05/10/2018 SUBJECTIVE: The patient has been extubated, and at the time of my examination was on an aerosol face mask. His work of breathing was fairly significant. He was alert and responded to questions appropriately. OBJECTIVE: Vital Signs: Last temperature was at 4 a.m. at 98.6. At present, his pulse rate is 111, respirations are 20 to 24, blood pressure is 93/52. General: The patient is alert, seems reasonably oriented given the gravity of his illness. He responds to questions. He nods and also verbally expresses answers appropriately. Lungs: The patient's breath sounds are somewhat diminished I think likely due to shallow and weak respiratory cycle. I did not hear any rales or wheezes on either side. I do hear breath sounds on both sides at approximately the same level. Cardiovascular: Irregularly irregular at 100 to 120 beats per minute and variable. Extremities: I do not detect any peripheral edema in the dependent areas. ASSESSMENT AND PLAN: 1. The patient has been extubated and is tolerating this reasonably well. When he is on the BiPAP, his blood pressure is lower and heart rate goes down, but he is more comfortable on it. On aerosol face mask, his work of breathing, blood pressure and pulse also go up. We will continue treatment for Klebsiella pneumoniae with aerosol treatments and respiratory support. 2. Chronic atrial fibrillation. The patient is on amiodarone. We will continue this without change. His heart rate seems to be contingent on his work of breathing. 3. Low cortisol levels have been supplemented with low-dose intravenous steroids. 4. Immunoglobulin deficiency, aware. 5. The patient's gastrointestinal status is stable. He is tolerating tube feeds. His ostomy has appropriate output. 6. No code blue level 1. This continues. cc: MD Laura Leung MD
--- NOTE | 2018-05-10 12:00 | Diag Imaging Result Doc PS360 ---
EXAM: CHEST-1 VIEW INDICATION: resp. failure TECHNIQUE: One view COMPARISON: 05/09/2018 FINDINGS: There has been interval removal of the NG tube. Lung volumes are low Left lower lobe opacity suggesting consolidation appears to have worsened slightly during the interval. No other new consolidation is identified. Cardiac silhouette is stable. IMPRESSION: Slight increase in density of left lower lobe consolidation. Electronically signed by Natanael Whitley 05/10/2018 11:58 AM
--- NOTE | 2018-05-10 12:03 | Diag Imaging Result Doc PS360 ---
EXAM: SHOULDER 1 VIEW RIGHT INDICATION: fx TECHNIQUE: One view COMPARISON: 04/24/2018 FINDINGS: The known humeral head fracture seen on the previous study is again identified. There has been little change since the previous study and the fracture since the previous study. There is suggestion of very minimal bony callus formation adjacent to a few of the fracture lines. As opposed to the previous study, there is no inferior subluxation of the femoral head. Surrounding soft tissues are unremarkable. IMPRESSION: Right humeral head fracture that is very similar to the previous study with suggestion of subtle early callus formation. Electronically signed by Natanael Whitley 05/10/2018 12:01 PM
--- NOTE | 2018-05-10 12:32 | Diag Imaging Result Doc PS360 ---
EXAM: CHEST/ABD TUBE PLACEMENT INDICATION: Feeding tube placement TECHNIQUE: One view COMPARISON: 05/10/2018 FINDINGS: The recently placed weighted feeding tube is identified. It projects well below the diaphragm and is assumed to be in the lumen of the stomach in expected position. Limited views of the upper abdomen and lung bases are essentially stable. IMPRESSION: Recently placed feeding tube in the expected position as described. Electronically signed by Natanael Whitley 05/10/2018 12:30 PM
[2018-05-10] MEDS: NS 500 ML IV SCH (15:20)
--- NOTE | 2018-05-10 15:55 | PULMONOLOGY PROGRESS NOTE ---
DATE: 05/10/2018 SUBJECTIVE: The patient has been cycled off and on BiPAP. He currently is on a face mask. He has no increased work of breathing. He has generalized weakness. OBJECTIVE: Vital Signs: Blood pressure 126/60, heart rate 112, respiratory rate 18 to 22, oxygen saturation 94%. HEENT: Pupils are equal and reactive. Oropharynx appears dry, but clear. Neck: Neck is supple. Chest: Chest reveals diminished breath sounds in the left base. Cardiac exam: S1, S2. Abdomen: Soft. Extremities: Slightly cool to the touch. LABORATORIES/X-RAYS: Chest x-ray reveals continued atelectasis/pneumonia at the left lung base. Limited view of the abdomen reveals some gaseous distention of the bowel. White blood count 12.53, hemoglobin 9.7, platelet count 452,000. Arterial blood gas: A pH 7.51, pCO2 of 39, PO2 of 93. Chemistry: Sodium 141, potassium 3.6, chloride 100, bicarbonate 29. Creatinine 0.5. IMPRESSION: A 78 year old with: 1. Klebsiella pneumonia. 2. Acute hypoxemic respiratory failure. 3. Status post ileocecal resection for bowel obstruction. 4. Immunoglobulin deficiency. 5. Protein calorie malnutrition. 6. Atrial fibrillation. DISCUSSION: This is a 78 year old with multiple problems outlined above. He has been off mechanical ventilation for approximately 22 hours. His status is marginal. His code status was readdressed with the by nursing, and he remains a do not resuscitate level 1. RECOMMENDATIONS: 1. Continue current antibiotic regimen. 2. Continue bronchial hygiene. 3. Replace small soft bore feeding tube. If this is not tolerated, we will initiate some interim nutrition. 4. Overall prognosis is guarded. cc: MD Laura Alvarez MD
--- NOTE | 2018-05-10 19:26 | CARDIOLOGY PROGRESS NOTE ---
DATE: 05/10/2018 CHIEF COMPLAINT: Shortness of breath, irregular heartbeat. SUBJECTIVE: Mr. Page has been extubated. He has a BiPAP mask on board. He seems to be comfortable. He has no pain (we asked him if he needed pain medications). OBJECTIVE: Vital Signs: Blood pressure 118/66, respirations 29, pulse 109 to 115, temperature 98.4. General: He seems to respond appropriately. He is just very weak. HEENT: Mask is in place. Lungs: Diminished excursion at both abases. Cardiovascular: Heart sounds are irregularly irregular and distant. Abdomen: Slightly distended. Extremities: Show decreased muscle mass, generalized weakness. Neurologic: He follows simple commands. Skin: No obvious rash on the skin. LABORATORY DATA: A sputum culture grew Klebsiella pneumoniae on April 27. Chest x-ray done today shows a slight increase in density of left lower lobe consolidation. His white count is 12,530. Hemoglobin is 9.7. Sodium is 141, potassium 3.6, BUN 29, creatinine 0.5. IMPRESSION: 1. Patient who presented with pneumonia and respiratory failure. He has Klebsiella growing out of his sputum. 2. Paroxysmal atrial fibrillation. 3. Hypoxemic respiratory failure. 4. Moderately impaired systolic function of the left ventricle. Chronic systolic heart failure. 5. History of coronary bypass surgery. 6. History of vascular disease of the abdomen. RECOMMENDATIONS: At this point in time we will continue supportive therapy. His prognosis is quite guarded. He has chosen a DO NOT RESUSCITATE level 1 status. We will see him as needed. At this time his atrial fibrillation seems to be relatively stable on current schedule of amiodarone. cc: MD Laura Allison MD [facility]
--- NOTE | 2018-05-10 19:55 | GENERAL SURGERY PROGRESS NOTE ---
DATE: 05/10/2018 Mr. Page is now extubated and seems to be breathing satisfactorily. His NG tube is appropriately placed, and he is tolerating tube feedings. His abdominal wound looks fine. 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 I have no new recommendations currently. Will continue with tube feedings as ordered. cc: MD Laura Fernando MD
[2018-05-11] MEDS: DUONEB (A & A) INH SCH ×6 (03:29→23:00)
[2018-05-11] MEDS: ZOSYN 3.375 GM in NS 50 ML IV SCH ×4 (03:36→20:28)
[2018-05-11 04:53] LABS: ALLEN TEST YES; BE 6.7 mmoll (-3.0-3.0); BLOOD TYPE ARTERIAL; HCO3-(ACT) 30.1 mmoll (20.0-26.0); METHB 1.3 % (0.0-1.5); O2(CT) 15.2 mL/dL (15.0-23.0); O2HB 95.1 % (95.0-99.0); PCO2(98.6) 39 mmHg (35-45); PO2(98.6) 82 mmHg (60-100); SAMPLE BLOOD; SAO2 97.4 % (95.0-100.0); THB 11.3 g/dL (11.5-17.4)
[2018-05-11 04:55] LABS: MODALITY BI PAP
[2018-05-11 05:16] LABS: BASO# 0.01 X1000 (0.0-0.2); HEMATOCRIT 33.3 % (42.0-52.0); HEMOGLOBIN 10.7 g/dL (14.0-18.0); IMM GRAN# 0.05 X1000 (0.0-0.04); IMM GRAN% 0.2 % (0.0-0.5); LYMPH# 0.63 X1000 (1.2-3.4); LYMPH% 2.9 % (20.5-51.1); MCH 29.2 PG (27-31); MCHC 32.1 g/dL (33-37); MONO# 1.24 X1000 (0.11-0.59); MONO% 5.8 % (1.7-9.3); MPV 10.8 FL (7.4-10.4); NEUT# 19.63 X1000 (1.4-6.5); NEUT% 91.1 % (42.2-75.2); PLT 513 X1000 (130-400); RBC 3.66 XMIL (4.7-6.1); RDW 14.1 % (11.5-14.5); WBC 21.56 X1000 (4.8-10.8)
[2018-05-11] MEDS: LOVENOX SUBQ SCH (05:30)
[2018-05-11] MEDS: PROTONIX IV SCH (05:30)
[2018-05-11 06:32] LABS: AGAP 14; ALB/GLOB RATIO 0.9; ALBUMIN 2.7 g/dL (3.5-5.0); ALKALINE PHOSPHATASE 122 U/L (32-122); BUN 34 mg/dL (8-22); CALCIUM 8.5 mg/dL (8.8-10.2); CHLORIDE 103 mmol/L (98-107); COSMO 295; CREATININE 0.4 mg/dL (0.7-1.2); ESTIMATED GFR > 60; GLUCOSE 144 mg/dL (70-104); GOT 33 U/L (10-34); GPT 73 U/L (10-44); POTASSIUM 3.4 mmol/L (3.5-5.1); SODIUM 143 mmol/L (136-145); TCO2 26 mmol/L (25-35); TOTAL BILIRUBIN 0.57 mg/dL (0.20-1.00); TOTAL PROTEIN 5.6 g/dL (6.3-8.3)
--- NOTE | 2018-05-11 07:55 | Diag Imaging Result Doc PS360 ---
EXAM: CHEST-PORTABLE INDICATION: abnormal exam TECHNIQUE: One view COMPARISON: 05/10/2018 FINDINGS: The NG tube is in stable position. The patient is rotated toward the left. The left basilar retrocardiac opacity appears to be marginally less dense than the previous study. No new consolidation is appreciated. Cardiac silhouette is stable. IMPRESSION: Marginal improvement at the left lung base. Electronically signed by Natanael Whitley 05/11/2018 7:53 AM
--- NOTE | 2018-05-11 07:57 | Diag Imaging Result Doc PS360 ---
EXAM: KUB ABDOMEN INDICATION: distention TECHNIQUE: 2 views COMPARISON: 05/10/2018 FINDINGS: A right femoral central line is in place. There are midline skin alfred. Distended loops of small bowel most compatible with postsurgical ileus are essentially stable. Otherwise, the abdomen is grossly unchanged. IMPRESSION: Distended loops of small bowel suggesting ileus that are essentially stable. Electronically signed by Natanael Whitley 05/11/2018 7:54 AM
[2018-05-11] MEDS: MUCOMYST 20% INH SCH ×2 (08:13→19:55)
[2018-05-11] MEDS ORDERED: POTASSIUM CHLORIDE 40 MEQ/SWI 40 MEQ/100 ML IVPB IV ONE (08:40)
--- NOTE | 2018-05-11 09:03 | PROGRESS NOTE ---
DATE: 05/11/2018 SUBJECTIVE: The patient is on BiPAP. There is no family present in the ICU. The patient is awake and alert but it is difficult to respond because of the respiratory apparatus. OBJECTIVE: Vital Signs: Blood pressure is 103/53, the pulse rate is 107, respirations are 24 to 28. The patient is on BiPAP at the present time. Fluid balance -1338. Physical Examination: As stated, the patient is alert. Seems to respond with his eyes and tries to mouth some words but, because of the respiratory apparatus, it is unclear what he is saying. ENT: Examination is unremarkable. He has an NG tube in the left nostril. Lungs: Show bilateral upper airway noise with some coarse respiratory sounds in the left upper lobe. He is not wheezing. He is moving air reasonably well. Abdomen: Shows bowel sounds are present. Cardiovascular: Irregularly irregular at approximately 100 to 110 beats per minute. Extremities: No peripheral dependent edema. Laboratories: White cell count is elevated at 21.5, hematocrit is 33. ABG shows pH of 7.5, pCO2 of 39, PO2 of 82. This is on BiPAP at 70% FiO2. ASSESSMENT AND PLAN: 1. The patient remains extubated. His work of breathing is such that when he is taken off of BiPAP, he struggles. He was on a cool air mask for quite some time yesterday but then declined with increasing oxygen requirements and more dependence on the BiPAP. The patient is on Zosyn for Klebsiella pneumoniae with appropriate aerosol treatments and other respiratory support. 2. The patient is in chronic atrial fibrillation. He will remain on amiodarone. 3. The patient has steroid supplementation for low cortisol levels. 4. We are aware of his immunoglobulin deficiency. 5. The patient has a nasogastric tube in for nutritional support. He is tolerating tube feeds. His ostomy has appropriate output. 6. No Code level 1. cc: MD Laura Leung MD
[2018-05-11] MEDS: LASIX IV SCH (09:11)
[2018-05-11] MEDS: SOLU-MEDROL IV SCH (09:11)
[2018-05-11] MEDS: CORDARONE FT SCH (09:11)
[2018-05-11] MEDS: ASPIRIN NG SCH (09:11)
--- NOTE | 2018-05-11 11:28 | PULMONOLOGY PROGRESS NOTE ---
DATE: 05/11/2018 SUBJECTIVE: The patient is awake. He does have oxygen desaturation with removal of his BiPAP. He appears to be comfortable on the BiPAP device and is moving adequate tidal volumes. OBJECTIVE: Vital Signs: The patient has been afebrile for the last 24 hours. BP 93/54, heart rate 115, respiratory rate 27, oxygen saturation 96%. HEENT: Pupils are equal and reactive. Oropharynx is clear. Neck is supple. Chest: Reveals decreased breath sounds in the left base with scattered rhonchi. Cardiac Examination: S1, S2. Irregular rhythm. Abdomen: Soft, with positive bowel sounds. Extremities: Without edema. Laboratories: Chest x-ray reveals retrocardiac infiltrate which may be marginally improved. Arterial blood gas pH 7.50, pCO2 of 39, PO2 of 82. Sodium 143, potassium 3.4, chloride 103, bicarbonate 26, BUN 34, creatinine 0.4. White blood count 21.56, hemoglobin 10.7, platelet count 513,000. IMPRESSION: A 78-year-old with: 1. Klebsiella pneumonia. 2. Acute hypoxemic respiratory failure. 3. Ileus, status post ileocecal resection for bowel obstruction. He continues to tolerate tube feeds. 4. Protein calorie malnutrition. 5. Immunoglobulin deficiency. 6. Atrial fibrillation. DISCUSSION: The patient is a 78-year-old with multiple medical problems as outlined below. He continues to have a poor performance status. He is requiring BiPAP but has had some radiographic improvement. RECOMMENDATIONS: 1. Continue tube feeds. 2. Continue current antibiotic regimen. 3. Continue bronchial hygiene. 4. Continue to cycle BiPAP and face mask as tolerated. 5. We will add Clinimix to his current regimen. 6. Consider placement of a PICC line tomorrow if his leukocytosis persists. cc: MD Laura Alvarez MD
--- NOTE | 2018-05-11 11:46 | GENERAL SURGERY PROGRESS NOTE ---
DATE: 05/11/2018 Mr. Page remains extubated, on the CPAP. His tube feeding rate has been 20. He seems to be tolerating that so Dr. Jacob plans to increase it to 30, which I agree with. His wound otherwise looks satisfactory. His ileostomy continues to function. No other new recommendations besides the increase in tube feeding rates. cc: MD Laura Fernando MD
[2018-05-11] MEDS: CLINIMIX E 4.25%-5% SOLUTION 1,000 ML IV SCH (12:22)
[2018-05-11] MEDS: NS 500 ML IV SCH (15:25)
[2018-05-11] MEDS: LEVOPHED 8 MG in D5 1/2 NS 250 ML IV SCH (16:03)
[2018-05-11] MEDS: MORPHINE IV PRN (20:59)
[2018-05-12] MEDS: LEVOPHED 8 MG in D5 1/2 NS 250 ML IV SCH ×3 (01:09→23:41)
[2018-05-12] MEDS: CLINIMIX E 4.25%-5% SOLUTION 1,000 ML IV SCH ×2 (01:48→14:00)
[2018-05-12] MEDS: ZOSYN 3.375 GM in NS 50 ML IV SCH ×4 (03:03→20:39)
[2018-05-12] MEDS: DUONEB (A & A) INH SCH ×6 (03:18→23:46)
[2018-05-12 04:32] LABS: ALLEN TEST YES; BE 8.2 mmoll (-3.0-3.0); BLOOD TYPE ARTERIAL; HCO3-(ACT) 31.3 mmoll (20.0-26.0); METHB 0.9 % (0.0-1.5); O2(CT) 15.1 mL/dL (15.0-23.0); O2HB 95.2 % (95.0-99.0); PCO2(98.6) 40 mmHg (35-45); PO2(98.6) 79 mmHg (60-100); SAMPLE BLOOD; SAO2 97.5 % (95.0-100.0); THB 11.2 g/dL (11.5-17.4); pH(98.6) 7.51 (7.35-7.45)
[2018-05-12 04:33] LABS: MODALITY BI PAP
[2018-05-12 05:00] LABS: BASO# 0.02 X1000 (0.0-0.2); BASO% 0.1 % (0.0-0.8); HEMATOCRIT 31.9 % (42.0-52.0); HEMOGLOBIN 10.1 g/dL (14.0-18.0); IMM GRAN% 0.4 % (0.0-0.5); LYMPH# 0.84 X1000 (1.2-3.4); LYMPH% 3.5 % (20.5-51.1); MCH 28.9 PG (27-31); MCHC 31.7 g/dL (33-37); MCV 91.1 FL (81-99); MONO# 1.62 X1000 (0.11-0.59); MONO% 6.7 % (1.7-9.3); MPV 11.2 FL (7.4-10.4); NEUT# 21.59 X1000 (1.4-6.5); NEUT% 89.3 % (42.2-75.2); PLT 570 X1000 (130-400); RDW 14.3 % (11.5-14.5); WBC 24.17 X1000 (4.8-10.8)
[2018-05-12 05:17] LABS: AGAP 11; ALB/GLOB RATIO 0.9; ALBUMIN 2.7 g/dL (3.5-5.0); ALKALINE PHOSPHATASE 110 U/L (32-122); BUN 44 mg/dL (8-22); CALCIUM 8.8 mg/dL (8.8-10.2); CHLORIDE 102 mmol/L (98-107); COSMO 301; CREATININE 0.5 mg/dL (0.7-1.2); ESTIMATED GFR > 60; GLUCOSE 248 mg/dL (70-104); GOT 22 U/L (10-34); GPT 63 U/L (10-44); POTASSIUM 3.5 mmol/L (3.5-5.1); SODIUM 141 mmol/L (136-145); TCO2 28 mmol/L (25-35); TOTAL BILIRUBIN 0.44 mg/dL (0.20-1.00); TOTAL PROTEIN 5.8 g/dL (6.3-8.3)
[2018-05-12] MEDS: LOVENOX SUBQ SCH (05:33)
[2018-05-12] MEDS: PROTONIX IV SCH (05:33)
[2018-05-12] MEDS: MUCOMYST 20% INH SCH ×2 (07:59→19:45)
[2018-05-12] MEDS: ASPIRIN NG SCH (08:15)
[2018-05-12] MEDS: LASIX IV SCH (08:15)
[2018-05-12] MEDS: CORDARONE FT SCH (08:15)
[2018-05-12] MEDS: SOLU-MEDROL IV SCH (08:16)
--- NOTE | 2018-05-12 10:02 | PROGRESS NOTE ---
DATE: 05/12/2018 SUBJECTIVE DATA: Mr. Page remains intubated in ICU. At this time, there is no family at the bedside. We are here to monitor and evaluate his right proximal humerus fracture. OBJECTIVE DATA: There is still a moderate amount of swelling and bruising to the right upper extremity. There is some stiffness about the right shoulder. There is good radial pulse. There is decreased range of motion. There is mild tenderness to palpation with facial grimacing. His most recent shoulder x-ray and chest x-ray shows some healing to the right proximal humerus. He also has good alignment at this time. ASSESSMENT: Right proximal humerus fracture. PLAN: We will continue to monitor the patient while he is in the hospital. We will probably need repeat shoulder x-ray films in another 2 weeks. We may begin mobilizing him in about 2 weeks of that right upper extremity. We will check back on him then. Dictated by CHANA Ford for Natanael Stanford MD cc: CHANA Ford MD M. Neel Roberts, MD
[2018-05-12 13:14] LABS: INR 1.07; PROTIME 14.8 Seconds (11.0-16.0)
--- NOTE | 2018-05-12 13:42 | PULMONOLOGY PROGRESS NOTE ---
DATE: 05/12/2018 SUBJECTIVE: The patient is arousable. The patient's nurse reports his oxygen saturation drops when he comes off BiPAP. He is having increased residuals on his NG feeds. OBJECTIVE: Vital Signs: The patient has been afebrile for the last 24 hours. Blood pressure 111/63, heart rate 102, respiratory rate 31, oxygen saturation 98%. HEENT: Pupils are equal and reactive. Oropharynx is clear. Neck: Is supple. Abdomen: Soft . Extremities: Reveal trace edema. LABORATORIES: White blood count is increased to 24,000, hemoglobin 10.1, platelet count 570,000. Arterial blood gas reveals pH 7.51, pCO2 of 40, PO2 of 79. IMPRESSION: A 78-year-old with 1. Klebsiella pneumonia. 2. Acute hypoxemic respiratory failure. 3. Status post bowel resection for obstruction. 4. Protein calorie malnutrition. 5. Immunoglobulin deficiency. 6. Atrial fibrillation. 7. Acute hypoxemic respiratory failure. 8. Increasing white blood count despite decreasing oxygen requirements. RECOMMENDATION: 1. Tube feeds as tolerated. He is also receiving Clinimix. 2. Continue current antibiotic regimen. 3. Continue bronchial hygiene. 4. Remove right groin catheter and replace with a PICC line given increasing white blood count. 5. Prognosis remains guarded. End of life discussions have been held with family and code status has been addressed. cc: MD Laura Alvarez MD
[2018-05-12] MEDS: NS 500 ML IV SCH (14:00)
[2018-05-12] MEDS ORDERED: NS 250 ML ONE (14:17)
--- NOTE | 2018-05-12 16:01 | GENERAL SURGERY PROGRESS NOTE ---
DATE: 05/12/2018 SUBJECTIVE: He remains extubated. He is on BiPAP. Not really conversant. Intermittently tachycardic. Intermittently requiring low-dose Levophed. OBJECTIVE: Abdomen: Soft. A little more distended. Ostomy is pink and viable. Stool in the bag. LABORATORY: White count is elevated at 24, hematocrit 31. Creatinine is 0.5. Bilirubin was normal. Albumin is 2.7. I reviewed his x-ray from the and his orders. ASSESSMENT AND PLAN: This is a 78-year-old gentleman status post exploratory laparotomy. Pulmonary and cardiovascular status are his main issues. He is not tolerating tube feeds since he has been extubated. I suspect this is from gaseous distention of the stomach. I have asked the nurse to place his NG tube to suction and to work to wean him towards either high-flow nasal cannula or Ventimask. Very tenuous from a pulmonary standpoint but from an abdominal standpoint, I think he seems to be progressing well. cc: MD Laura Easley MD
[2018-05-12] MEDS: REGLAN IV SCH ×2 (18:02→22:58)
[2018-05-12] MEDS: MORPHINE IV PRN (22:59)
[2018-05-13] MEDS: CLINIMIX E 4.25%-5% SOLUTION 1,000 ML IV SCH ×2 (02:51→16:09)
[2018-05-13] MEDS: ZOSYN 3.375 GM in NS 50 ML IV SCH ×4 (02:52→22:17)
[2018-05-13] MEDS: DUONEB (A & A) INH SCH ×6 (03:39→23:30)
[2018-05-13 04:31] LABS: ALLEN TEST YES; BE 9.6 mmoll (-3.0-3.0); BLOOD TYPE ARTERIAL; HCO3-(ACT) 32.4 mmoll (20.0-26.0); METHB 1.1 % (0.0-1.5); O2(CT) 13.6 mL/dL (15.0-23.0); O2HB 95.1 % (95.0-99.0); PCO2(98.6) 42 mmHg (35-45); PO2(98.6) 77 mmHg (60-100); SAMPLE BLOOD; SAO2 97.6 % (95.0-100.0); THB 10.1 g/dL (11.5-17.4); pH(98.6) 7.51 (7.35-7.45)
[2018-05-13 04:32] LABS: MODALITY BI PAP
[2018-05-13] MEDS: PROTONIX IV SCH (05:38)
[2018-05-13] MEDS: REGLAN IV SCH ×4 (05:38→22:16)
[2018-05-13] MEDS: LOVENOX SUBQ SCH (05:39)
[2018-05-13 05:43] LABS: EOS# 0.01 X1000 (0.0-0.7); EOS% 0.1 % (0.0-10.0); HEMOGLOBIN 9.4 g/dL (14.0-18.0); IMM GRAN# 0.04 X1000 (0.0-0.04); IMM GRAN% 0.3 % (0.0-0.5); LYMPH# 0.74 X1000 (1.2-3.4); LYMPH% 4.7 % (20.5-51.1); MCH 28.7 PG (27-31); MCHC 31.3 g/dL (33-37); MCV 91.7 FL (81-99); MONO% 8.3 % (1.7-9.3); MPV 11.2 FL (7.4-10.4); NEUT% 86.6 % (42.2-75.2); PLT 467 X1000 (130-400); RBC 3.27 XMIL (4.7-6.1); RDW 14.6 % (11.5-14.5); WBC 15.59 X1000 (4.8-10.8)
[2018-05-13 06:00] LABS: AGAP 11; ALBUMIN 2.7 g/dL (3.5-5.0); ALKALINE PHOSPHATASE 103 U/L (32-122); BUN 45 mg/dL (8-22); CALCIUM 9.1 mg/dL (8.8-10.2); CHLORIDE 104 mmol/L (98-107); COSMO 303; CREATININE 0.4 mg/dL (0.7-1.2); ESTIMATED GFR > 60; GLUCOSE 189 mg/dL (70-104); GOT 19 U/L (10-34); GPT 49 U/L (10-44); POTASSIUM 3.6 mmol/L (3.5-5.1); SODIUM 144 mmol/L (136-145); TCO2 29 mmol/L (25-35); TOTAL BILIRUBIN 0.43 mg/dL (0.20-1.00); TOTAL PROTEIN 5.4 g/dL (6.3-8.3)
--- NOTE | 2018-05-13 06:42 | Diag Imaging Result Doc PS360 ---
EXAM: CHEST-PORTABLE HISTORY: respiratory failure TECHNIQUE: Portable chest single view COMPARISON: 05/11/2018 FINDINGS: Poor inspiratory effort. The heart is not enlarged. There are sternal wires and surgical clips. The vessels are not distended. There are no infiltrates. Small left pleural effusion. A nasogastric tube overlies the esophagus and stomach. IMPRESSION: No significant interval change Electronically signed by Eugene Bernal 05/13/2018 6:40 AM
[2018-05-13] MEDS: MUCOMYST 20% INH SCH ×2 (07:24→19:26)
[2018-05-13] MEDS: SOLU-MEDROL IV SCH (08:58)
[2018-05-13] MEDS: LASIX IV SCH (08:58)
[2018-05-13] MEDS: CORDARONE FT SCH (08:58)
[2018-05-13] MEDS: ASPIRIN NG SCH (08:58)
[2018-05-13] MEDS: LEVOPHED 8 MG in D5 1/2 NS 250 ML IV SCH ×2 (09:05→20:23)
[2018-05-13] MEDS: MORPHINE IV PRN ×3 (09:05→18:20)
--- NOTE | 2018-05-13 09:15 | PROGRESS NOTE ---
DATE: 05/13/2018 SUBJECTIVE: Mr. Page is awake and responsive to verbal stimuli as long as he wears the BiPAP, he maintains O2 saturations in the range of 95% to 98% percent. His chest x-ray showed a small pleural effusion, but no obvious infiltrates. He is still requiring pressors to support his blood pressure. He remains in atria fibrillation, but his heart rate is stable in the 80s and 90s. He is having good output via the ileostomy. OBJECTIVE: Temperature 97.8 degrees, pulse 95, respiratory rate 23 and BP 101/52.CV: Irregularly irregular. Lungs: Faint crackles in left base. Abdomen: Mildly distended with good bowel sounds. LABORATORY: Various laboratory studies were obtained. A CBC demonstrated white count of 15.5, hemoglobin 9.4 hematocrit 30 and a platelet count of 467,000. ABGs demonstrate the following pH 7.51, pCO2 42, PO2 77, and O2 saturation 97.6. ASSESSMENT AND PLAN: 1. Acute respiratory failure with hypoxia on BiPAP secondary to gram-negative pneumonia. Chest x- ray shows resolution of the infiltrates where sputum cultures grew out Klebsiella. He is still on IV Zosyn. Blood cultures are negative at 48 hours. Hopefully, we will continue to be able to try to wean him off the BiPAP and transition him to face mask as feasible. 2. Protein calorie malnutrition. He has not been able to tolerate tube feedings due to the elevated residuals. We will continue the NG tube to low Gomco suction. Continue Clinimix and IV Reglan. cc: Laura Jennings MD [facility]
[2018-05-13] MEDS ORDERED: D5W 1,000 ML IV SCH (09:30)
--- NOTE | 2018-05-13 14:06 | Diag Imaging Result Doc PS360 ---
EXAM: CHEST-PORTABLE HISTORY: NG tube placement TECHNIQUE: Portable chest abdomen COMPARISON: 5:28 AM FINDINGS: A nasogastric tube overlies the esophagus and stomach. There are midline abdominal skin alfred. There are multiple air-filled loops of bowel. Prominent atherosclerosis. IMPRESSION: Nasogastric tube overlies the stomach. Electronically signed by Eugene Bernal 05/13/2018 2:04 PM
--- NOTE | 2018-05-13 14:09 | PULMONOLOGY PROGRESS NOTE ---
DATE: 05/13/2018 SUBJECTIVE: The patient is awake and alert. He does follow simple commands. He remains on BiPAP. OBJECTIVE: Vital Signs: The patient has been afebrile for the last 24 hours. Blood pressure 100/54, heart rate 91, respiratory rate 20, oxygen saturation 94% on BiPAP. He remains on Levophed, which has increased over the last 24 hours. HEENT: Pupils are equal and reactive. Oropharynx evaluation is limited. Neck: Supple. Chest: Reveals shallow breath sounds bilaterally. Cardiac Exam: S1, S2. Abdomen: Mildly distended with increased tympany. He appears to be nontender. Extremities: Reveal some cyanosis of the fifth digit of the left hand. LABORATORIES/X-RAYS: Chest x-ray reveals small left pleural effusion, but left base has continued to improve over time. Multiple distended bowel loops are noted. White blood count has decreased to 15.6, hemoglobin 9.4, platelet count 467,000. Arterial blood gas reveals a pH of 7.51, pCO2 of 42, PO2 of 77 on 30% BiPAP. Chemistry: Sodium 144, potassium 3.6, chloride 104, bicarbonate 26. BUN 45, creatinine 0.4, total protein 5.4, globulin 2.7. IgG is normal following replacement at 721. IMPRESSION: A 78-year-old with: 1. Acute hypoxemic respiratory failure. 2. Immunoglobulin deficiency, which has improved with replacement. 3. Klebsiella pneumonia. 4. Status post bowel resection for obstruction. 5. Protein calorie malnutrition. 6. Atrial fibrillation with periotic rapid ventricular response. 7. Leukocytosis, which has improved with removing the right central venous catheter line and replacement with a PICC line. 8. Generalized deconditioning. RECOMMENDATIONS: 1. Continue Clinimix. Resume tube feeds with improvement in bowel function. 2. One liter of D5-W today for increasing basal pressure requirements along with hypernatremia. 3. Continue bronchial hygiene. 4. Prognosis remains guarded. End of life discussions have been held with the family and addressed by Dr. Jennings. cc: MD Laura Alvarez MD
[2018-05-13] MEDS: NS 500 ML IV SCH (14:28)
--- NOTE | 2018-05-13 18:12 | GENERAL SURGERY PROGRESS NOTE ---
DATE: 05/13/2018 SUBJECTIVE: Clinically not much change. He is on BiPAP. His NG tube has been placed to suction. OBJECTIVE: Abdomen: Soft. His ostomy continues to function. LABS: White count down to 15. I reviewed his labs, x-ray, and examined the patient. ASSESSMENT AND PLAN: I would keep his NG tube to suction while he is on positive pressure ventilation. He did have quite a lot of small bowel dilation on his x-ray; suspect this is from ingested air. His ostomy is functioning. We will follow him along. cc: MD Laura Easley MD
[2018-05-14] MEDS: MORPHINE IV PRN ×5 (00:10→21:52)
[2018-05-14] MEDS: DUONEB (A & A) INH SCH ×6 (03:44→23:38)
[2018-05-14] MEDS: ZOSYN 3.375 GM in NS 50 ML IV SCH ×4 (04:31→21:52)
[2018-05-14] MEDS: CLINIMIX E 4.25%-5% SOLUTION 1,000 ML IV SCH ×2 (04:32→18:23)
[2018-05-14] MEDS: REGLAN IV SCH ×4 (04:32→22:45)
[2018-05-14 04:43] LABS: ALLEN TEST YES; BE 9.3 mmoll (-3.0-3.0); BLOOD TYPE ARTERIAL; HCO3-(ACT) 32.2 mmoll (20.0-26.0); METHB 0.4 % (0.0-1.5); O2(CT) 12.5 mL/dL (15.0-23.0); O2HB 94.5 % (95.0-99.0); PCO2(98.6) 38 mmHg (35-45); PO2(98.6) 62 mmHg (60-100); SAMPLE BLOOD; SAO2 97.3 % (95.0-100.0); THB 9.4 g/dL (11.5-17.4); pH(98.6) 7.54 (7.35-7.45)
[2018-05-14 04:44] LABS: MODALITY BI PAP
[2018-05-14 06:16] LABS: BASO# 0.01 X1000 (0.0-0.2); BASO% 0.1 % (0.0-0.8); EOS# 0.07 X1000 (0.0-0.7); EOS% 0.5 % (0.0-10.0); HEMATOCRIT 29.8 % (42.0-52.0); HEMOGLOBIN 9.2 g/dL (14.0-18.0); IMM GRAN# 0.03 X1000 (0.0-0.04); IMM GRAN% 0.2 % (0.0-0.5); LYMPH# 0.93 X1000 (1.2-3.4); LYMPH% 7.3 % (20.5-51.1); MCH 28.5 PG (27-31); MCHC 30.9 g/dL (33-37); MCV 92.3 FL (81-99); MONO# 1.06 X1000 (0.11-0.59); MONO% 8.3 % (1.7-9.3); MPV 11.2 FL (7.4-10.4); NEUT# 10.69 X1000 (1.4-6.5); NEUT% 83.6 % (42.2-75.2); PLT 421 X1000 (130-400); RBC 3.23 XMIL (4.7-6.1); RDW 14.4 % (11.5-14.5); WBC 12.79 X1000 (4.8-10.8)
[2018-05-14] MEDS: PROTONIX IV SCH (06:28)
[2018-05-14] MEDS: LOVENOX SUBQ SCH (06:28)
[2018-05-14] MEDS: SODIUM CHLORIDE 0.9% INJ SCH (06:28)
[2018-05-14 06:32] LABS: MAGNESIUM 1.8 mg/dL (1.5-2.7); PHOSPHORUS 2.7 mg/dL (2.7-4.5)
[2018-05-14 06:37] LABS: AGAP 9; ALB/GLOB RATIO 1.3; ALBUMIN 2.7 g/dL (3.5-5.0); ALKALINE PHOSPHATASE 102 U/L (32-122); BUN 40 mg/dL (8-22); CALCIUM 8.5 mg/dL (8.8-10.2); CHLORIDE 100 mmol/L (98-107); COSMO 290; CREATININE 0.4 mg/dL (0.7-1.2); ESTIMATED GFR > 60; GLUCOSE 147 mg/dL (70-104); GOT 20 U/L (10-34); GPT 46 U/L (10-44); POTASSIUM 4.3 mmol/L (3.5-5.1); SODIUM 139 mmol/L (136-145); TCO2 30 mmol/L (25-35); TOTAL BILIRUBIN 0.37 mg/dL (0.20-1.00); TOTAL PROTEIN 4.8 g/dL (6.3-8.3)
[2018-05-14] MEDS: MUCOMYST 20% INH SCH ×2 (07:29→19:55)
--- NOTE | 2018-05-14 07:37 | Diag Imaging Result Doc PS360 ---
EXAM: CHEST-PORTABLE INDICATION: respiratory failure TECHNIQUE: One view COMPARISON: 05/13/2018 FINDINGS: The NG tube is in stable position. Lung volumes are low similar to the previous study. There does appear to be slight increase in bibasilar atelectasis, at least on the right. No other new consolidation is identified. Cardiac silhouette is stable. IMPRESSION: Slight increase in bibasilar atelectasis. Stable chest, otherwise. Electronically signed by Natanael Whitley 05/14/2018 7:35 AM
[2018-05-14] MEDS: SOLU-MEDROL IV SCH (08:31)
[2018-05-14] MEDS: ASPIRIN NG SCH (08:31)
[2018-05-14] MEDS: LASIX IV SCH (08:31)
[2018-05-14] MEDS: CORDARONE FT SCH (08:31)
[2018-05-14] MEDS: LEVOPHED 8 MG in D5 1/2 NS 250 ML IV SCH ×2 (10:05→21:53)
--- NOTE | 2018-05-14 13:46 | PULMONOLOGY PROGRESS NOTE ---
DATE: 05/14/2018 SUBJECTIVE: The patient is awake and alert. He is currently on a Ventimask. He has no increased work of breathing. OBJECTIVE: Vital Signs: The patient has been afebrile for the last 24 hours. Blood pressure 97/59, heart rate 89, respiratory rate 33, oxygen saturation 99%. HEENT: Pupils are equal and reactive. Oropharynx is clear. Neck: Supple. Chest: Reveals occasional rhonchi. Cardiac: S1, S2. Abdomen: Soft with diminished bowel sounds. Extremities: Slightly cool to the touch. LABORATORIES: Chest x-ray reveals shallow inspiration, slight increased bibasilar atelectasis. White blood count 12.8, hemoglobin 9.2, platelet count 421,000. Arterial blood gas: pH 7.54, pCO2 of 38, PO2 of 62 on BiPAP. Sodium 139, potassium 4.3, chloride 100, bicarbonate 30, BUN 40, creatinine 0.4. IMPRESSION: A 78-year-old with: 1. Immunoglobulin deficiency. 2. Klebsiella pneumonia. 3. Acute hypoxemic respiratory failure. 4. Protein calorie malnutrition. 5. Status post bowel resection for bowel obstruction. 6. Leukocytosis, which is decreasing. 7. Ongoing hypotension and vasopressor requirement. RECOMMENDATIONS: 1. Continue Clinimix. We will resume tube feeds when his NG output decreases and bowel function improves. 2. Continue bronchial hygiene. 3. Continue to cycle BiPAP with face mask as necessary for respiratory work of breathing. cc: MD Laura Alvarez MD
--- NOTE | 2018-05-14 14:01 | Diag Imaging Result Doc PS360 ---
EXAM: CHEST-PORTABLE INDICATION: NGT placement TECHNIQUE: One view COMPARISON: 05/14/2018 FINDINGS: The NG tube is identified with the tip projecting well below the diaphragm and assumed to be in the lumen of the stomach in the expected position. Midline skin alfred and distended loops of small bowel are identified consistent with ileus. IMPRESSION: Interval placement of NG tube in expected position as described. Electronically signed by Natanael Whitley 05/14/2018 1:59 PM
[2018-05-14] MEDS: NS 500 ML IV SCH (15:17)
[2018-05-14] MEDS ORDERED: BLISTEX MEDICATED BERRY LIP BALM TOP PRN (17:01)
--- NOTE | 2018-05-14 17:35 | PROGRESS NOTE ---
DATE: 05/14/2018 SUBJECTIVE: Mr. Page is awake and easily arousable. He follows simple commands. He answers questions. He was on BiPAP throughout the evening. He has been on a Ventimask throughout the day. His breathing appears unlabored. He is maintaining O2 saturations of 98 to 99%. Blood pressure is still marginal and he is requiring pressor support. He still has some abdominal distention. He is on an NG tube to low Gomco suction. OBJECTIVE: Vital signs: Temperature 98.4 degrees, pulse 97, respiratory rate 24, BP 102/51. CV: Irregularly irregular. Lungs: Clear. Abdomen: Soft with hypoactive bowel sounds. No rebound or guarding. ASSESSMENT: 1. Acute respiratory failure with gram-negative pneumonia. 2. Immunoglobulin deficiency. 3. Severe protein calorie malnutrition. 4. Chronic congestive heart failure secondary to systolic dysfunction. PLAN: We will continue the Ventimask throughout the day and rest him at night with BiPAP. We will continue nebulizer treatments and IV Zosyn. We will continue to give him IV IgG as needed. He appears to have an ileus. We will continue the NG tube to low Gomco suction. As his GI tract function improves, we will resume tube feedings. We will continue to try to wean him off pressors. He remains in atrial fibrillation. We will continue the amiodarone. Heart rate is stable. Overall he is very frail and is still requiring aggressive management. I believe that he potentially would be a candidate for the LTAC unit. I have discussed the LTAC unit with his family and they are certainly agreeable to the idea of transfer to the LTAC unit based on bed availability and whether he would be a candidate. I have put in a consult social media strategist. cc: Laura Jennings MD
[2018-05-15] MEDS: DUONEB (A & A) INH SCH ×6 (03:25→23:14)
[2018-05-15] MEDS ORDERED: NS 0 ML ONE (03:38)
[2018-05-15] MEDS: ZOSYN 3.375 GM in NS 50 ML IV SCH ×4 (03:50→22:15)
[2018-05-15 04:49] LABS: ALLEN TEST YES; BE 8.8 mmoll (-3.0-3.0); BLOOD TYPE ARTERIAL; HCO3-(ACT) 31.7 mmoll (20.0-26.0); METHB 0.4 % (0.0-1.5); O2(CT) 19.3 mL/dL (15.0-23.0); O2HB 95.1 % (95.0-99.0); PCO2(98.6) 41 mmHg (35-45); PO2(98.6) 75 mmHg (60-100); SAMPLE BLOOD; SAO2 99.1 % (95.0-100.0); THB 14.4 g/dL (11.5-17.4); pH(98.6) 7.51 (7.35-7.45)
[2018-05-15 04:50] LABS: MODALITY BI PAP
[2018-05-15 05:28] LABS: BASO# 0.01 X1000 (0.0-0.2); BASO% 0.1 % (0.0-0.8); EOS# 0.01 X1000 (0.0-0.7); EOS% 0.1 % (0.0-10.0); HEMATOCRIT 29.9 % (42.0-52.0); HEMOGLOBIN 9.2 g/dL (14.0-18.0); IMM GRAN# 0.03 X1000 (0.0-0.04); IMM GRAN% 0.2 % (0.0-0.5); LYMPH# 0.92 X1000 (1.2-3.4); LYMPH% 6.6 % (20.5-51.1); MCH 28.6 PG (27-31); MCHC 30.8 g/dL (33-37); MCV 92.9 FL (81-99); MONO# 1.08 X1000 (0.11-0.59); MONO% 7.8 % (1.7-9.3); MPV 11.2 FL (7.4-10.4); NEUT# 11.84 X1000 (1.4-6.5); NEUT% 85.2 % (42.2-75.2); PLT 430 X1000 (130-400); RBC 3.22 XMIL (4.7-6.1); RDW 14.3 % (11.5-14.5); WBC 13.89 X1000 (4.8-10.8)
[2018-05-15 05:47] LABS: AGAP 7; ALBUMIN 2.6 g/dL (3.5-5.0); ALKALINE PHOSPHATASE 102 U/L (32-122); BUN 38 mg/dL (8-22); CALCIUM 8.9 mg/dL (8.8-10.2); CHLORIDE 101 mmol/L (98-107); COSMO 289; CREATININE 0.4 mg/dL (0.7-1.2); ESTIMATED GFR > 60; GLUCOSE 183 mg/dL (70-104); GOT 18 U/L (10-34); GPT 44 U/L (10-44); POTASSIUM 4.1 mmol/L (3.5-5.1); SODIUM 138 mmol/L (136-145); TCO2 30 mmol/L (25-35); TOTAL BILIRUBIN 0.37 mg/dL (0.20-1.00); TOTAL PROTEIN 5.3 g/dL (6.3-8.3)
[2018-05-15] MEDS: REGLAN IV SCH ×4 (05:53→22:15)
[2018-05-15] MEDS: PROTONIX IV SCH (05:55)
[2018-05-15] MEDS: LOVENOX SUBQ SCH (05:55)
[2018-05-15] MEDS: SODIUM CHLORIDE 0.9% INJ SCH (05:55)
[2018-05-15 06:09] LABS: LYMPHS 7 % (21-51); MONO 8 % (1-9); SEGS 85 % (42-75)
[2018-05-15] MEDS: CLINIMIX E 4.25%-5% SOLUTION 1,000 ML IV SCH ×2 (06:19→22:16)
--- NOTE | 2018-05-15 07:08 | Diag Imaging Result Doc PS360 ---
EXAM: CHEST-PORTABLE 05/15/2018 HISTORY: respiratory failure TECHNIQUE: AP portable at 0428 COMMENT: There is retrocardiac opacity which has improved slightly since 05/14/2018. There is coarse opacity in the right base as well that was previously present. IMPRESSION: Slightly improved atelectasis versus pneumonia. Electronically signed by Lan Robin 05/15/2018 7:06 AM
[2018-05-15] MEDS: MUCOMYST 20% INH SCH ×2 (08:25→20:25)
[2018-05-15] MEDS: LASIX IV SCH (08:47)
[2018-05-15] MEDS: SOLU-MEDROL IV SCH (08:47)
[2018-05-15] MEDS: ASPIRIN NG SCH (08:48)
[2018-05-15] MEDS: CORDARONE FT SCH (08:49)
[2018-05-15] MEDS: LEVOPHED 8 MG in D5 1/2 NS 250 ML IV SCH ×2 (09:29→18:55)
--- NOTE | 2018-05-15 11:02 | PULMONOLOGY PROGRESS NOTE ---
DATE: 05/15/2018 SUBJECTIVE: The patient is currently on a face mask. He is conversant. He has audible rhonchi which he can partially but incompletely clear. He has no increased work of breathing. OBJECTIVE: The patient is afebrile for the last 24 hours. The patient remains on vasopressors. Blood pressure 133/72, heart rate 24, respiratory rate 113, oxygen saturation 99%. HEENT: Pupils are equal and reactive. Oropharynx is slightly dry. Neck is supple. Chest reveals rhonchi bilaterally. Cardiac: S1, S2. Abdomen is soft with occasional bowel sounds. Extremities are without edema. DIAGNOSTIC STUDIES: Chest x-ray reveals continued clearing of the left base. He has significant air in his abdomen. Sodium 138, potassium 4.1, chloride 101, bicarbonate 30, BUN 38, creatinine 0.4. White blood count 13.89, hemoglobin 9.2, platelet count 430,000. IMPRESSION: A 78-year-old with: 1. Immunoglobulin deficiency with replacement. 2. Klebsiella pneumonia with continued improvement in chest x-ray. 3. Acute hypoxemic respiratory failure. 4. Protein-calorie malnutrition. 5. Ongoing hypotension with vasopressor requirement. 6. Border cortisol level. 7. Mild leukocytosis, which is stable. 8. Status post bowel resection for bowel obstruction. 9. Overall poor performance status. RECOMMENDATIONS: 1. Continue Clinimix until bowel function improves. 2. Continue bronchial hygiene. He may need nasotracheal suctioning. 3. Additional fluid bolus this morning, given ongoing hypotension. 4. Continue to cycle BiPAP and face mask as necessary as dictated by work of breathing. 5. LTAC evaluation in progress. cc: MD Laura Alvarez MD
--- NOTE | 2018-05-15 12:46 | PROGRESS NOTE ---
DATE: 05/15/2018 SUBJECTIVE: Mr. Page is awake and arousable. He is able to carry on a short conversation. His breathing appears unlabored on a face mask. He is still requiring BiPAP at night. He remains in atrial fibrillation. PHYSICAL EXAMINATION: Vital Signs: Heart rate has been in the 70s and low 90s. He is still requiring pressor support. He is afebrile. Pulse is 95. Respiratory rate 18. BP 115/65. Cardiovascular: Irregularly irregular. Lungs: Coarse rhonchi bilaterally. Abdomen: Soft, with hypoactive bowel sounds. LABS: Various laboratory studies were obtained. A CBC demonstrated a white count of 13.8, hemoglobin 9.2, hematocrit 29.9, and a platelet count of 430,000. Electrolytes demonstrated the following: Sodium 138, potassium 4.1, chloride 101, BUN 38, creatinine 0.4, glucose 183. ASSESSMENT AND PLAN: 1. Acute respiratory failure with hypoxia secondary to a gram-negative pneumonia. We will continue BIPAP at night and transition him to a face mask during the day. Hopefully, over time, we will be able to wean him completely off BiPAP. 2. Chronic atrial fibrillation. He remains in atrial fibrillation. We will continue amiodarone and digoxin for rate control. 3. Ileus. Output is improving. He still has some gaseous distention which is made worse by the BiPAP. We will continue the nasogastric tube to low Gomco suction. We will continue Clinimix. Once his gut function improves, we will resume tube feedings. cc: Laura Jennings MD MTDD
[2018-05-15] MEDS: NS 500 ML IV SCH (15:11)
--- NOTE | 2018-05-15 15:16 | GENERAL SURGERY PROGRESS NOTE ---
DATE: 05/15/2018 SUBJECTIVE: Clinically about the same. A little more alert. EXAMINATION: Abdomen is soft. NG tube has been 2 to 300, bilious. Ileostomy is functioning, but not a lot. Abdomen is soft. LABORATORY: White count 13, hematocrit 29. I reviewed his ABG. Creatinine 0.4. ASSESSMENT AND PLAN: A 78-year-old gentleman status post exploratory laparotomy. He has a bit of an ileus. We will keep his NG tube to suction for now. Pulmonary status is the main issue. Some discussion of transferring him to an LTAC. He may ultimately benefit from this. We will continue current management. cc: MD Laura Easley MD
[2018-05-15] MEDS: MORPHINE IV PRN (22:16)
[2018-05-16] MEDS: DUONEB (A & A) INH SCH ×6 (03:35→23:45)
[2018-05-16 04:23] LABS: ALLEN TEST YES; BE 10.8 mmoll (-3.0-3.0); BLOOD TYPE ARTERIAL; HCO3-(ACT) 33.4 mmoll (20.0-26.0); METHB 0.1 % (0.0-1.5); O2(CT) 13.3 mL/dL (15.0-23.0); O2HB 96.5 % (95.0-99.0); PCO2(98.6) 45 mmHg (35-45); PO2(98.6) 82 mmHg (60-100); SAMPLE BLOOD; SAO2 99.9 % (95.0-100.0); THB 9.7 g/dL (11.5-17.4)
[2018-05-16 04:24] LABS: MODALITY BI PAP
[2018-05-16] MEDS: REGLAN IV SCH ×5 (04:24→22:46)
[2018-05-16] MEDS: ZOSYN 3.375 GM in NS 50 ML IV SCH ×4 (04:26→20:39)
[2018-05-16] MEDS: LEVOPHED 8 MG in D5 1/2 NS 250 ML IV SCH ×2 (04:28→18:17)
[2018-05-16] MEDS: LOVENOX SUBQ SCH (05:22)
[2018-05-16] MEDS: PROTONIX IV SCH (05:22)
[2018-05-16] MEDS: SODIUM CHLORIDE 0.9% INJ SCH (05:23)
[2018-05-16 05:29] LABS: EOS# 0.05 X1000 (0.0-0.7); EOS% 0.4 % (0.0-10.0); HEMATOCRIT 30.1 % (42.0-52.0); HEMOGLOBIN 9.5 g/dL (14.0-18.0); IMM GRAN# 0.03 X1000 (0.0-0.04); IMM GRAN% 0.3 % (0.0-0.5); LYMPH# 1.01 X1000 (1.2-3.4); LYMPH% 8.6 % (20.5-51.1); MCHC 31.6 g/dL (33-37); MCV 91.8 FL (81-99); MONO# 0.88 X1000 (0.11-0.59); MONO% 7.5 % (1.7-9.3); MPV 11.2 FL (7.4-10.4); NEUT# 9.77 X1000 (1.4-6.5); NEUT% 83.2 % (42.2-75.2); PLT 423 X1000 (130-400); RBC 3.28 XMIL (4.7-6.1); RDW 14.2 % (11.5-14.5); WBC 11.74 X1000 (4.8-10.8)
[2018-05-16 05:52] LABS: AGAP 8; ALBUMIN 2.6 g/dL (3.5-5.0); ALKALINE PHOSPHATASE 103 U/L (32-122); BUN 37 mg/dL (8-22); CALCIUM 8.5 mg/dL (8.8-10.2); CHLORIDE 99 mmol/L (98-107); COSMO 289; CREATININE 0.4 mg/dL (0.7-1.2); ESTIMATED GFR > 60; GLUCOSE 188 mg/dL (70-104); GOT 16 U/L (10-34); GPT 43 U/L (10-44); SODIUM 138 mmol/L (136-145); TCO2 31 mmol/L (25-35); TOTAL BILIRUBIN 0.39 mg/dL (0.20-1.00); TOTAL PROTEIN 5.2 g/dL (6.3-8.3)
--- NOTE | 2018-05-16 06:29 | Diag Imaging Result Doc PS360 ---
EXAM: CHEST-PORTABLE HISTORY: respiratory failure TECHNIQUE: Portable chest single view COMPARISON: 05/15/2018 FINDINGS: The lungs are poorly expanded. No change in the nasogastric tube or right-sided PICC line. There are sternal wires and surgical clips. No cardiomegaly. There are infiltrates in the lung bases IMPRESSION: No significant interval change Electronically signed by Eugene Bernal 05/16/2018 6:26 AM
[2018-05-16] MEDS: MUCOMYST 20% INH SCH ×2 (08:01→19:16)
[2018-05-16] MEDS: LASIX IV SCH (08:25)
[2018-05-16] MEDS: CORDARONE FT SCH (08:25)
[2018-05-16] MEDS: ASPIRIN NG SCH (08:25)
[2018-05-16] MEDS: SOLU-MEDROL IV SCH (08:26)
--- NOTE | 2018-05-16 09:38 | Diag Imaging Result Doc PS360 ---
EXAM: ABDOMEN FLAT/UPRIGHT HISTORY: ileus TECHNIQUE: Flat and upright, two views COMPARISON: 05/11/2018 FINDINGS: There are multiple midline skin alfred. There are air distended loops of bowel throughout the abdomen and pelvis. A nasogastric tube overlies the stomach. No organomegaly. Mild scoliosis with prominent degenerative changes. Prominent atherosclerosis. IMPRESSION: Persistent ileus with no improvement. Electronically signed by Eugene Bernal 05/16/2018 9:36 AM
[2018-05-16] MEDS ORDERED: NS 1,000 ML IV SCH (10:15)
[2018-05-16] MEDS: CLINIMIX E 4.25%-5% SOLUTION 1,000 ML IV SCH (10:32)
--- NOTE | 2018-05-16 13:51 | PROGRESS NOTE ---
DATE: 05/16/2018 Mr. Page continues with small amounts of output via the ileostomy. Abdominal films were consistent with a persistent ileus. He remains in atrial fibrillation. Heart rates have been in the 90s. He is still requiring BiPAP at night. He is wearing a Venturi mask during the day and is maintaining O2 saturations of 93 to 99 percent. Chest x-rays show bilateral infiltrates. PHYSICAL EXAMINATION: General: He is awake and interactive, he carries on conversation with family and staff. Vital signs: Temperature 98.6 degrees, pulse 93 and irregular, respiratory rate 19, blood pressure 146/66. Cardiovascular: Irregularly irregular. Lungs: Faint rhonchi bilaterally. Abdomen: Mildly distended with good bowel sounds. No rebound or guarding. ASSESSMENT AND PLAN: 1. Acute respiratory failure with hypoxia secondary to gram-negative pneumonia. We will continue to rest him at night with BiPAP and transition him to a Venti mask during the day. We will continue broad-spectrum antibiotics. [place] [address] [place] [address]. 2. Persistent ileus. Unfortunately, the ileus is made worse by the BiPAP. We will continue the NG tube to low Gomco suction. cc: Laura Jennings MD
--- NOTE | 2018-05-16 14:20 | GENERAL SURGERY PROGRESS NOTE ---
DATE: 05/16/2018 NG tube some bilious output. Abdomen is soft somewhat less distended. He is not really responsive. He is on open face mask. I reviewed his labs, chest x-ray, and his vital signs. ASSESSMENT AND PLAN: A 78-year-old gentleman status post exploratory laparotomy, pulmonary and cardiovascular status is the main issue. He does have a bit of an ileus, most likely related to his positive pressure ventilation he is requiring at night causing bowel distention. We will continue to optimize electrolytes. He is having some ileostomy output, but it is less than it was. cc: MD Laura Easley MD
[2018-05-16] MEDS: NS 500 ML IV SCH (14:35)
--- NOTE | 2018-05-16 16:51 | PULMONOLOGY PROGRESS NOTE ---
DATE: 05/16/2018 SUBJECTIVE: The patient is on BiPAP. He remains on vasopressors. He does not appear to be in overt distress. OBJECTIVE: Vital Signs: The patient's maximum temperature in the last 24 hours is 99.9 degrees, with a current temperature of 98.6 degrees, BP 104/58, heart rate 99, respiratory rate 27, oxygen saturation 97%. HEENT: Pupils are equal and reactive. Oropharynx is clear. Neck: Supple. Chest: Reveals crackles in the lung bases. Cardiac: Irregular irregular. Normal S1, S2. Abdomen: Abdomen is mildly distended with decreased bowel sounds. Extremities: Are without edema. LABORATORY DATA: Arterial blood gas reveals a pH of 7.50, pCO2 of 45, PO2 of 82 on BiPAP. White blood count 11.74 and decreased, hemoglobin 9.5, platelet count 423,000. Chest x-ray reveals shallow inspiration with mild infiltrates in the bases without change. KUB reveals multiple distended bowel loops throughout the abdomen consistent with an ileus. IMPRESSION: 1. A 78-year-old with acute hypoxemic respiratory failure. 2. Immunoglobulin deficiency with prior replacement. 3. Klebsiella pneumonia. 4. Protein calorie malnutrition. 5. Ordered cortisol level. 6. Ongoing hypotension, on vasopressor requirement. 7. Leukocytosis, which is improving. 8. Status post bowel resection for bowel obstruction. 9. Overall poor performance status. PLAN: 1. We will give a fluid challenge today to see if vasopressors can be decreased. 2. Continue bronchial hygiene with nasotracheal suctioning as indicated. 3. Cycle BiPAP and face mask as tolerated. 4. Anticipate transfer to LTAC early next week when bed becomes available. cc: MD Laura Alvarez MD
[2018-05-17] MEDS: CLINIMIX E 4.25%-5% SOLUTION 1,000 ML IV SCH ×2 (01:20→15:51)
[2018-05-17] MEDS: ZOSYN 3.375 GM in NS 50 ML IV SCH ×4 (03:15→20:21)
[2018-05-17] MEDS: DUONEB (A & A) INH SCH ×6 (03:40→23:30)
[2018-05-17 04:46] LABS: ALLEN TEST YES; BE 8.5 mmoll (-3.0-3.0); BLOOD TYPE ARTERIAL; HCO3-(ACT) 31.6 mmoll (20.0-26.0); METHB 0.3 % (0.0-1.5); O2(CT) 13.4 mL/dL (15.0-23.0); O2HB 96.2 % (95.0-99.0); PCO2(98.6) 37 mmHg (35-45); PO2(98.6) 84 mmHg (60-100); SAMPLE BLOOD; SAO2 98.5 % (95.0-100.0); THB 9.8 g/dL (11.5-17.4); pH(98.6) 7.54 (7.35-7.45)
[2018-05-17] MEDS: REGLAN IV SCH ×3 (05:27→20:22)
[2018-05-17] MEDS: LOVENOX SUBQ SCH (05:27)
[2018-05-17] MEDS: PROTONIX IV SCH (05:27)
[2018-05-17 06:11] LABS: MODALITY BI PAP
[2018-05-17 06:22] LABS: BASO# 0.01 X1000 (0.0-0.2); BASO% 0.1 % (0.0-0.8); EOS# 0.03 X1000 (0.0-0.7); EOS% 0.2 % (0.0-10.0); HEMATOCRIT 31.4 % (42.0-52.0); HEMOGLOBIN 9.8 g/dL (14.0-18.0); IMM GRAN# 0.04 X1000 (0.0-0.04); IMM GRAN% 0.3 % (0.0-0.5); LYMPH# 0.96 X1000 (1.2-3.4); LYMPH% 7.4 % (20.5-51.1); MCH 28.7 PG (27-31); MCHC 31.2 g/dL (33-37); MCV 91.8 FL (81-99); MONO# 1.07 X1000 (0.11-0.59); MONO% 8.3 % (1.7-9.3); MPV 11.2 FL (7.4-10.4); NEUT# 10.83 X1000 (1.4-6.5); NEUT% 83.7 % (42.2-75.2); PLT 391 X1000 (130-400); RBC 3.42 XMIL (4.7-6.1); RDW 14.3 % (11.5-14.5); WBC 12.94 X1000 (4.8-10.8)
[2018-05-17 06:48] LABS: AGAP 10; ALB/GLOB RATIO 1.1; ALBUMIN 2.7 g/dL (3.5-5.0); ALKALINE PHOSPHATASE 102 U/L (32-122); BUN 34 mg/dL (8-22); CALCIUM 8.4 mg/dL (8.8-10.2); CHLORIDE 101 mmol/L (98-107); COSMO 292; CREATININE 0.4 mg/dL (0.7-1.2); ESTIMATED GFR > 60; GLUCOSE 185 mg/dL (70-104); GOT 17 U/L (10-34); GPT 39 U/L (10-44); POTASSIUM 3.9 mmol/L (3.5-5.1); SODIUM 140 mmol/L (136-145); TCO2 29 mmol/L (25-35); TOTAL BILIRUBIN 0.33 mg/dL (0.20-1.00); TOTAL PROTEIN 5.1 g/dL (6.3-8.3)
[2018-05-17] MEDS: LEVOPHED 8 MG in D5 1/2 NS 250 ML IV SCH ×2 (07:12→20:37)
[2018-05-17] MEDS: MUCOMYST 20% INH SCH ×2 (08:07→19:05)
--- NOTE | 2018-05-17 08:24 | Diag Imaging Result Doc PS360 ---
EXAM: CHEST-PORTABLE - 05/17/2018 HISTORY: respiratory failure TECHNIQUE: Portable chest COMPARISON: 05/16/2018 FINDINGS: Heart size appears within normal limits. Inspiration is somewhat shallow. There is infiltrate at the left base which may have increased mildly. There are no other interval changes identified. Nasogastric tube remains in place. There is gaseous distention of colon and visualized upper abdomen similar to prior. IMPRESSION: Possible mild increase in left basilar infiltrate. Electronically signed by Bo Wilson 05/17/2018 8:22 AM
[2018-05-17] MEDS: SOLU-MEDROL IV SCH (08:48)
[2018-05-17] MEDS: ASPIRIN NG SCH (08:49)
[2018-05-17] MEDS: LASIX IV SCH (08:49)
[2018-05-17] MEDS: CORDARONE FT SCH (08:49)
--- NOTE | 2018-05-17 09:49 | PROGRESS NOTE ---
DATE: 05/17/2018 SUBJECTIVE: Mr. Page is resting comfortably. He is still requiring BiPAP at night and is transitioned to a Venti mask during the day. He is maintaining O2 saturations in the mid 90s. There does not appear to be any increasing work of breathing. He will have occasional episodes of desaturations into the 80s when he becomes agitated or while they are suctioning him. He is having minimal output via the ileostomy. X-ray showed a persistent ileus. He is requiring an NG tube to low Gomco suction. He remains in atrial fibrillation. His heart rate has been in the 80s and 90s. His heart rate will get in the 100 when and he is agitated. He is still requiring pressors for blood pressure support. OBJECTIVE: Vital signs: He is afebrile, pulse 85, respirations 24, blood pressure 107/63. Cardiovascular: Irregularly irregular. Lungs: Faint crackles in the bases bilaterally. Abdomen: Soft with hypoactive bowel sounds. No rebound or guarding. Extremities: Without edema. LABORATORY DATA: A CBC demonstrated the following: White count 12.9, hemoglobin 9.8, hematocrit 31.4, platelet count of 391,000. ABGs demonstrated a pH of 7.54, PO2 84, pCO2 37, O2 saturation of 98.5%. Electrolytes demonstrate the following: Sodium 140, potassium 3.9, chloride 101, BUN 34, creatinine 0.4, and glucose 185. ASSESSMENT AND PLAN: 1. Chronic atrial fibrillation. His heart rate is generally well controlled. We will continue oral amiodarone. 2. Acute respiratory failure with hypoxia secondary to gram-negative pneumonia with immunoglobulin deficiency. He has had 2 dosages of IV IgG. His white count is trending down. We will continue to use BiPAP at night and transition him to a Venti mask. We will continue broad-spectrum antibiotics. Unfortunately, he continues to require pressor support. We will cautiously hydrate him in the face of his underlying heart disease in the hopes of being able to further wean the Levophed. 3. He does have an ileus. We will continue NG tube to low Gomco suction. Hopefully as his output via the ileostomy improves, we will be able to wean him off the NG tube and resume tube feedings. 4. He has been acceptant to the LTAC unit and transfer will occur based upon bed availability. We are hoping that they will have been of the first of the week. cc: Laura Jennings MD MTDD
--- NOTE | 2018-05-17 14:27 | GENERAL SURGERY PROGRESS NOTE ---
DATE: 05/17/2018 SUBJECTIVE: The patient denies abdominal pain. OBJECTIVE: Vital Signs: He is afebrile, pulse 80s to 90s, blood pressure 92-108 systolic, O2 saturation 99%. He remains on BiPAP. NG tube output 500 mL. General: He is arousable, but somnolent. He does shake his head yes and no to questions. Gastrointestinal: Soft, nontender, nondistended. ASSESSMENT AND PLAN: A 78-year-old male status post exploratory laparotomy with bowel resection, ileostomy. He remains hypotensive in respiratory failure requiring BiPAP support. This is limiting us being able to advance his diet. He is on Clinimix for support. LTAC is planned for next week. cc: MD Laura Blankenship MD
[2018-05-17] MEDS: NS 500 ML IV SCH ×2 (14:45→15:30)
[2018-05-18] MEDS: DUONEB (A & A) INH SCH ×6 (03:30→23:36)
[2018-05-18] MEDS: ZOSYN 3.375 GM in NS 50 ML IV SCH ×4 (03:46→20:27)
[2018-05-18] MEDS: REGLAN IV SCH ×4 (03:47→20:27)
[2018-05-18] MEDS: CLINIMIX E 4.25%-5% SOLUTION 1,000 ML IV SCH ×2 (05:32→18:09)
[2018-05-18] MEDS: PROTONIX IV SCH (05:32)
[2018-05-18] MEDS: LOVENOX SUBQ SCH (05:32)
[2018-05-18 05:39] LABS: ALLEN TEST YES; BE 9.7 mmoll (-3.0-3.0); BLOOD TYPE ARTERIAL; HCO3-(ACT) 32.5 mmoll (20.0-26.0); METHB 1.4 % (0.0-1.5); O2(CT) 12.4 mL/dL (15.0-23.0); O2HB 94.8 % (95.0-99.0); PCO2(98.6) 46 mmHg (35-45); PO2(98.6) 80 mmHg (60-100); SAMPLE BLOOD; SAO2 97.7 % (95.0-100.0); THB 9.2 g/dL (11.5-17.4); pH(98.6) 7.48 (7.35-7.45)
[2018-05-18 05:40] LABS: MODALITY BI PAP
[2018-05-18 06:47] LABS: EOS# 0.04 X1000 (0.0-0.7); EOS% 0.4 % (0.0-10.0); HEMOGLOBIN 8.9 g/dL (14.0-18.0); IMM GRAN# 0.02 X1000 (0.0-0.04); IMM GRAN% 0.2 % (0.0-0.5); LYMPH# 0.93 X1000 (1.2-3.4); LYMPH% 8.6 % (20.5-51.1); MCH 28.9 PG (27-31); MCHC 30.7 g/dL (33-37); MCV 94.2 FL (81-99); MONO# 0.94 X1000 (0.11-0.59); MONO% 8.7 % (1.7-9.3); MPV 11.1 FL (7.4-10.4); NEUT# 8.84 X1000 (1.4-6.5); NEUT% 82.1 % (42.2-75.2); PLT 314 X1000 (130-400); RBC 3.08 XMIL (4.7-6.1); RDW 14.6 % (11.5-14.5); WBC 10.77 X1000 (4.8-10.8)
--- NOTE | 2018-05-18 07:07 | Diag Imaging Result Doc PS360 ---
EXAM: CHEST-PORTABLE HISTORY: respiratory failure TECHNIQUE: Portable chest single view COMPARISON: 05/17/2018 FINDINGS: Poor inspiratory effort. Nasogastric tube overlies the esophagus and stomach. The sternal wires and surgical clips. There is a small left pleural effusion with basilar atelectasis versus an infiltrate. Right lung is clear. The overall appearance is similar to the prior exam. IMPRESSION: Stable chest Electronically signed by Eugene Bernal 05/18/2018 7:05 AM
[2018-05-18] MEDS: MUCOMYST 20% INH SCH ×2 (08:04→19:51)
[2018-05-18] MEDS: LASIX IV SCH (08:25)
[2018-05-18] MEDS: SOLU-MEDROL IV SCH (08:25)
[2018-05-18] MEDS: ASPIRIN NG SCH (08:25)
[2018-05-18] MEDS: CORDARONE FT SCH (08:26)
[2018-05-18 09:22] LABS: CHLORIDE 100 mmol/L (98-107); SODIUM 136 mmol/L (136-145)
[2018-05-18 09:23] LABS: AGAP 12; BUN 37 mg/dL (8-22); CALCIUM 8.3 mg/dL (8.8-10.2); COSMO 283; GLUCOSE 147 mg/dL (70-104); GOT 22 U/L (10-34); TCO2 24 mmol/L (25-35); TOTAL BILIRUBIN 0.42 mg/dL (0.20-1.00); TOTAL PROTEIN 5.4 g/dL (6.3-8.3)
[2018-05-18 09:24] LABS: ALB/GLOB RATIO 0.9; ALBUMIN 2.5 g/dL (3.5-5.0); ALKALINE PHOSPHATASE 108 U/L (32-122); GPT 39 U/L (10-44)
[2018-05-18 09:25] LABS: CREATININE 0.4 mg/dL (0.7-1.2)
--- NOTE | 2018-05-18 11:02 | PROGRESS NOTE ---
DATE: 05/18/2018 SUBJECTIVE: Mr. Page had frequent episodes of desaturation into the 70s and 80s when he was switched to high-flow oxygen. He was transitioned back to BiPAP and his O2 saturations stayed in the 80s on 40% oxygen. He is now on 100% oxygen via BiPAP and his O2 saturations were in the mid 90s. His chest x-ray showed a small amount of fluid in the left base. He remains in atrial fibrillation. Heart rate has generally been well controlled. Output via the ileostomy continues to improve. OBJECTIVE: Vitals: He is afebrile. Pulse 96, respirations 22, blood pressure 119/67. CARDIOVASCULAR: Irregularly irregular. Lungs: Faint crackles in the left base. Abdomen: Soft. Good bowel sounds. No rebound or guarding. LABORATORIES: Various laboratory studies were obtained. A CBC demonstrated white count 10.7, hemoglobin 8.9, hematocrit 29, and a platelet count of 314,000. Electrolytes demonstrate the following: Sodium 136, potassium 5, CO2 24, BUN 37, creatinine 0.4, glucose 147. ASSESSMENT/PLAN: 1. Acute respiratory failure with hypoxia secondary to gram-negative pneumonia. Cultures grew out Klebsiella. His O2 saturations were marginal and he is now back on BiPAP with 100% O2. We will try to transition him down over the course of the day to lower oxygen on the BiPAP and hopefully transition him back to the Ventimask. We will continue DuoNeb nebulizer treatments and IV antibiotics. Blood pressure is staying fairly stable on low-dose Levophed. He is on 3 mcg per minute. 2. Ileus. He is having increasing GI output. I will recheck abdominal films in the morning. Hopefully, we will be able to wean him off the NG tube to low suction and resume his tube feedings. cc: MD BOONE Bocanegra
[2018-05-18] MEDS: NS 500 ML IV SCH (14:00)
--- NOTE | 2018-05-18 17:00 | GENERAL SURGERY PROGRESS NOTE ---
DATE: 05/18/2018 SUBJECTIVE: The patient did not tolerate much top off of the BiPAP as he quickly desaturated. He is now back on 100% FiO2 via BiPAP. He remains on Levophed. NG tube output yesterday 600 mL. OBJECTIVE: General: He is arousable. No acute distress. Temperature 97.8 degrees, pulse 80s to 90s, blood pressure in the 90s systolic, O2 saturation now 100% . Urine output 1050 mL yesterday. He is very weak and frail appearing. CV: Irregularly irregular. Respiratory: Crackles bilaterally. GI: Soft, nontender. Ileostomy pink and patent. Midline incision clean, dry, and intact. Abdomen soft, nontender. Extremities: His feet and toes are dusky and cool but cap refill is present. LABORATORY: White cell count 10.7. IMAGING: Chest x-ray today shows small left pleural effusion with basilar atelectasis versus an infiltrate. The right lung is clear. Overall, this is stable. ASSESSMENT AND PLAN: A 78-year-old male with respiratory failure, ileus status post bowel resection, ileostomy, hypotension. At this point we cannot increase his diet to tube feeds because of the elevated NG tube output, the ongoing hypotension requiring pressor support and the positive pressure ventilation via the BiPAP. There is also concern for ischemia of the extremities because of the requirement for Levophed. I wonder if another inotrope support rather than Levophed might be reasonable. No other acute surgical issues at this time. cc: MD Laura Blankenship MD
[2018-05-19] MEDS: LEVOPHED 8 MG in D5 1/2 NS 250 ML IV SCH (00:05)
[2018-05-19] MEDS: DUONEB (A & A) INH SCH ×6 (03:14→23:49)
[2018-05-19] MEDS: ZOSYN 3.375 GM in NS 50 ML IV SCH ×4 (03:35→20:51)
[2018-05-19] MEDS: REGLAN IV SCH ×4 (03:37→20:51)
[2018-05-19 04:50] LABS: ALLEN TEST YES; BLOOD TYPE ARTERIAL; METHB 0.8 % (0.0-1.5); O2(CT) 17.5 mL/dL (15.0-23.0); O2HB 92.9 % (95.0-99.0); PCO2(98.6) 45 mmHg (35-45); PO2(98.6) 64 mmHg (60-100); SAMPLE BLOOD; SAO2 95.2 % (95.0-100.0); THB 13.4 g/dL (11.5-17.4); pH(98.6) 7.47 (7.35-7.45)
[2018-05-19 04:51] LABS: MODALITY BI PAP
[2018-05-19 04:58] LABS: EOS# 0.04 X1000 (0.0-0.7); EOS% 0.3 % (0.0-10.0); HEMATOCRIT 30.9 % (42.0-52.0); HEMOGLOBIN 9.8 g/dL (14.0-18.0); IMM GRAN# 0.02 X1000 (0.0-0.04); IMM GRAN% 0.2 % (0.0-0.5); LYMPH# 0.82 X1000 (1.2-3.4); LYMPH% 6.5 % (20.5-51.1); MCH 28.7 PG (27-31); MCHC 31.7 g/dL (33-37); MCV 90.6 FL (81-99); MONO% 8.8 % (1.7-9.3); MPV 11.1 FL (7.4-10.4); NEUT# 10.59 X1000 (1.4-6.5); NEUT% 84.2 % (42.2-75.2); PLT 348 X1000 (130-400); RBC 3.41 XMIL (4.7-6.1); RDW 14.3 % (11.5-14.5); WBC 12.57 X1000 (4.8-10.8)
[2018-05-19 05:25] LABS: AGAP 9; ALB/GLOB RATIO 1.1; ALBUMIN 2.7 g/dL (3.5-5.0); ALKALINE PHOSPHATASE 104 U/L (32-122); BUN 36 mg/dL (8-22); CALCIUM 8.3 mg/dL (8.8-10.2); CHLORIDE 98 mmol/L (98-107); COSMO 285; CREATININE 0.4 mg/dL (0.7-1.2); ESTIMATED GFR > 60; GLUCOSE 152 mg/dL (70-104); GOT 18 U/L (10-34); GPT 37 U/L (10-44); POTASSIUM 3.9 mmol/L (3.5-5.1); SODIUM 137 mmol/L (136-145); TCO2 30 mmol/L (25-35); TOTAL BILIRUBIN 0.41 mg/dL (0.20-1.00); TOTAL PROTEIN 5.1 g/dL (6.3-8.3)
[2018-05-19] MEDS: PROTONIX IV SCH (05:39)
[2018-05-19] MEDS: LOVENOX SUBQ SCH (05:39)
--- NOTE | 2018-05-19 07:25 | Diag Imaging Result Doc PS360 ---
CHEST-PORTABLE - 05/19/2018 INDICATION: respiratory failure COMPARISON: 05/18/2018 FINDINGS: Stable nasogastric tube in the stomach. Stable severely low lung volumes with some trace bibasilar atelectasis. No significant focal infiltrates. Heart size remains top normal. IMPRESSION: No change from prior. Electronically signed by Armin Harrison 05/19/2018 7:23 AM
[2018-05-19] MEDS: CLINIMIX E 4.25%-5% SOLUTION 1,000 ML IV SCH ×2 (07:41→21:15)
[2018-05-19] MEDS: MUCOMYST 20% INH SCH ×2 (07:50→19:47)
[2018-05-19] MEDS: SOLU-MEDROL IV SCH (09:00)
[2018-05-19] MEDS: CORDARONE FT SCH (09:01)
[2018-05-19] MEDS: ASPIRIN NG SCH (09:01)
[2018-05-19] MEDS: LASIX IV SCH (09:01)
[2018-05-19] MEDS: NS 500 ML IV SCH (13:49)
[2018-05-20] MEDS: LEVOPHED 8 MG in D5 1/2 NS 250 ML IV SCH (02:35)
[2018-05-20] MEDS: DUONEB (A & A) INH SCH ×6 (03:49→23:42)
[2018-05-20] MEDS: REGLAN IV SCH ×4 (03:54→20:14)
[2018-05-20] MEDS: ZOSYN 3.375 GM in NS 50 ML IV SCH ×4 (03:54→20:14)
[2018-05-20 04:43] LABS: BASO# 0.01 X1000 (0.0-0.2); BASO% 0.1 % (0.0-0.8); EOS# 0.05 X1000 (0.0-0.7); EOS% 0.3 % (0.0-10.0); HEMATOCRIT 31.1 % (42.0-52.0); HEMOGLOBIN 9.9 g/dL (14.0-18.0); IMM GRAN# 0.03 X1000 (0.0-0.04); IMM GRAN% 0.2 % (0.0-0.5); LYMPH% 5.3 % (20.5-51.1); MCH 28.5 PG (27-31); MCHC 31.8 g/dL (33-37); MCV 89.6 FL (81-99); MONO# 1.07 X1000 (0.11-0.59); MONO% 7.1 % (1.7-9.3); MPV 10.9 FL (7.4-10.4); NEUT# 13.16 X1000 (1.4-6.5); PLT 331 X1000 (130-400); RBC 3.47 XMIL (4.7-6.1); RDW 14.6 % (11.5-14.5); WBC 15.12 X1000 (4.8-10.8)
[2018-05-20 04:59] LABS: AGAP 7; ALBUMIN 2.6 g/dL (3.5-5.0); ALKALINE PHOSPHATASE 103 U/L (32-122); BUN 36 mg/dL (8-22); CALCIUM 8.6 mg/dL (8.8-10.2); CHLORIDE 99 mmol/L (98-107); COSMO 287; CREATININE 0.3 mg/dL (0.7-1.2); ESTIMATED GFR > 60; GLUCOSE 179 mg/dL (70-104); GOT 18 U/L (10-34); GPT 37 U/L (10-44); POTASSIUM 4.1 mmol/L (3.5-5.1); SODIUM 137 mmol/L (136-145); TCO2 31 mmol/L (25-35); TOTAL BILIRUBIN 0.37 mg/dL (0.20-1.00); TOTAL PROTEIN 5.2 g/dL (6.3-8.3)
[2018-05-20 05:04] LABS: ALLEN TEST YES; BE 8.2 mmoll (-3.0-3.0); BLOOD TYPE ARTERIAL; HCO3-(ACT) 31.2 mmoll (20.0-26.0); METHB 0.5 % (0.0-1.5); O2HB 91.1 % (95.0-99.0); PCO2(98.6) 45 mmHg (35-45); PO2(98.6) 55 mmHg (60-100); SAMPLE BLOOD; SAO2 93.3 % (95.0-100.0); THB 10.1 g/dL (11.5-17.4); pH(98.6) 7.47 (7.35-7.45)
[2018-05-20 05:07] LABS: MODALITY HIGH FLOW NASAL CAN
[2018-05-20] MEDS: LOVENOX SUBQ SCH (06:03)
[2018-05-20] MEDS: PROTONIX IV SCH (06:03)
--- NOTE | 2018-05-20 07:28 | Diag Imaging Result Doc PS360 ---
CHEST-PORTABLE - 05/20/2018 INDICATION: respiratory failure COMPARISON: 05/19/2018 FINDINGS: Stable nasogastric tube in good position. Stable low lung volumes. There is worsening consolidation and/or effusion at the left lung base. There is stable strandy atelectasis at the right lung base. Heart size remains normal. IMPRESSION: Worsening aeration of the left lung base due to consolidation, atelectasis, and/or effusion. Electronically signed by Armin Harrison 05/20/2018 7:26 AM
[2018-05-20] MEDS: MUCOMYST 20% INH SCH ×2 (08:24→19:36)
--- NOTE | 2018-05-20 08:59 | PROGRESS NOTE ---
DATE: 05/20/2018 SUBJECTIVE: Mr. Page is resting comfortably. He is awake and easily arousable. He carries on a short conversation. He follows simple commands. He had frequent episodes of desaturations throughout the day yesterday. He is currently on high-flow oxygen with an FiO2 of 75%, O2 saturations have been in the range of 92% to 95. Chest x-ray demonstrates a left pleural effusion. He is afebrile. OBJECTIVE: Vital Signs: Pulse 93, respiratory rate 24, BP 103/67. CV: Irregularly irregular. Lungs: Diminished breath sounds in the left base. Abdomen: Soft, nontender, with good bowel sounds. LABS: Various laboratory studies were obtained. A CBC demonstrated a white count of 15, hemoglobin 9.9, hematocrit 31, and a platelet count of 331,000. Arterial blood gases demonstrated a pH of 7.47, PCO2 45, PO2 55 and an O2 saturation of 93%. Electrolytes demonstrated the following: Sodium 137, potassium 4.1, BUN 36, creatinine 0.3, glucose 179. ASSESSMENT AND PLAN: 1. Acute respiratory failure with hypoxia secondary to gram-negative pneumonia and acute on chronic congestive heart failure secondary to systolic dysfunction. He appears to have a worsening left pleural effusion. He is still requiring fluids and pressor support to maintain his blood pressure. I will cautiously give him Lasix 20 mg intravenous times one dose. 2. Chronic atrial fibrillation. He remains in atrial fibrillation. We will continue amiodarone. Heart rate is stable. 3. Ileus. He is having some increased output via the ileostomy. We will continue nasogastric tube to low Gomco suction and, once the ileus has resolved, we will resume tube feedings. cc: Laura Jennings MD
[2018-05-20] MEDS: ASPIRIN NG SCH (09:01)
[2018-05-20] MEDS: SOLU-MEDROL IV SCH (09:01)
[2018-05-20] MEDS: LASIX IV SCH (09:01)
[2018-05-20] MEDS: CORDARONE FT SCH (09:01)
[2018-05-20] MEDS: CLINIMIX E 4.25%-5% SOLUTION 1,000 ML IV SCH (10:31)
[2018-05-20] MEDS: NS 500 ML IV SCH (14:02)
--- NOTE | 2018-05-20 17:45 | GENERAL SURGERY PROGRESS NOTE ---
DATE: 05/20/2018 SUBJECTIVE: About the same clinically. NG tube output is decreasing. Ileostomy inputs improving. His incision is intact. I reviewed his labs, chest x-ray, white count is climbing. Tube feeds are on hold. ASSESSMENT AND PLAN: This 78-year-old gentleman prolonged hospital course, his ileus seems to be improving. His pulmonary status marginally improved, he still on low-dose pressors. Will follow along. If his ileostomy output remains adequate would be reasonable resume tube feeds as tolerated. cc: MD Laura Easley MD
[2018-05-21] MEDS: CLINIMIX E 4.25%-5% SOLUTION 1,000 ML IV SCH ×2 (00:02→13:50)
[2018-05-21] MEDS: REGLAN IV SCH ×4 (02:40→20:02)
[2018-05-21] MEDS: ZOSYN 3.375 GM in NS 50 ML IV SCH ×4 (02:41→20:02)
[2018-05-21] MEDS: DUONEB (A & A) INH SCH ×6 (02:42→23:20)
[2018-05-21 05:31] LABS: ALLEN TEST YES; BE 9.6 mmoll (-3.0-3.0); BLOOD TYPE ARTERIAL; HCO3-(ACT) 32.4 mmoll (20.0-26.0); METHB 0.7 % (0.0-1.5); O2(CT) 13.1 mL/dL (15.0-23.0); O2HB 96.9 % (95.0-99.0); PO2(98.6) 99 mmHg (60-100); SAMPLE BLOOD; SAO2 100.5 % (95.0-100.0); THB 9.5 g/dL (11.5-17.4); pH(98.6) 7.43 (7.35-7.45)
[2018-05-21 05:32] LABS: MODALITY HIGH FLOW NASAL CAN
[2018-05-21 05:33] LABS: PCO2(98.6) 53 mmHg (35-45)
[2018-05-21] MEDS: LOVENOX SUBQ SCH (05:35)
[2018-05-21] MEDS: PROTONIX IV SCH (05:36)
[2018-05-21] MEDS: SODIUM CHLORIDE 0.9% INJ SCH (05:36)
[2018-05-21 07:05] LABS: BASO# 0.01 X1000 (0.0-0.2); BASO% 0.1 % (0.0-0.8); EOS# 0.04 X1000 (0.0-0.7); EOS% 0.3 % (0.0-10.0); HEMATOCRIT 29.8 % (42.0-52.0); HEMOGLOBIN 9.3 g/dL (14.0-18.0); IMM GRAN# 0.02 X1000 (0.0-0.04); IMM GRAN% 0.2 % (0.0-0.5); LYMPH# 0.75 X1000 (1.2-3.4); LYMPH% 5.7 % (20.5-51.1); MCH 28.4 PG (27-31); MCHC 31.2 g/dL (33-37); MCV 90.9 FL (81-99); MONO# 0.75 X1000 (0.11-0.59); MONO% 5.7 % (1.7-9.3); MPV 11.5 FL (7.4-10.4); NEUT# 11.53 X1000 (1.4-6.5); PLT 300 X1000 (130-400); RBC 3.28 XMIL (4.7-6.1); RDW 14.7 % (11.5-14.5)
[2018-05-21 07:15] LABS: AGAP 8; ALB/GLOB RATIO 1.2; ALBUMIN 2.7 g/dL (3.5-5.0); ALKALINE PHOSPHATASE 101 U/L (32-122); BUN 35 mg/dL (8-22); CALCIUM 8.7 mg/dL (8.8-10.2); CHLORIDE 97 mmol/L (98-107); COSMO 287; CREATININE 0.3 mg/dL (0.7-1.2); ESTIMATED GFR > 60; GLUCOSE 152 mg/dL (70-104); GOT 19 U/L (10-34); GPT 38 U/L (10-44); SODIUM 138 mmol/L (136-145); TCO2 33 mmol/L (25-35); TOTAL BILIRUBIN 0.32 mg/dL (0.20-1.00)
[2018-05-21] MEDS: MUCOMYST 20% INH SCH ×2 (07:35→19:54)
[2018-05-21 07:43] LABS: BANDS 4 % (0-1); LYMPHS 4 % (21-51); MONO 6 % (1-9); SEGS 86 % (42-75)
--- NOTE | 2018-05-21 07:46 | Diag Imaging Result Doc PS360 ---
EXAM: CHEST-PORTABLE 05/21/2018 HISTORY: respiratory failure TECHNIQUE: AP portable at 0549 COMMENT: There has been some improvement in the consolidation and volume loss in the left lower lobe present on 05/20/2018. The right lung is unchanged in appearance. Both hemidiaphragms are elevated probably at least in part due to gaseous distention of the colon. There is an NG tube with its tip in the stomach. IMPRESSION: Improved atelectasis and/or pneumonia left lower lobe. Electronically signed by Lan Robin 05/21/2018 7:44 AM
--- NOTE | 2018-05-21 08:32 | Diag Imaging Result Doc PS360 ---
EXAM: CHEST/ABD TUBE PLACEMENT 05/21/2018 HISTORY: NGT placement TECHNIQUE: AP upright portable for NG tube placement at 0818 COMMENT: The NG tube tip is in the stomach. There are distended loops of colon and/or small bowel visible particularly in the right upper quadrant. This is similar to but somewhat improved since 05/16/2018. IMPRESSION: Ileus. NG tube in the stomach. Electronically signed by Lan Robin 05/21/2018 8:30 AM
[2018-05-21] MEDS ORDERED: LASIX IV ONE (08:44)
[2018-05-21] MEDS: LASIX IV SCH (09:53)
[2018-05-21] MEDS: ASPIRIN NG SCH (09:53)
[2018-05-21] MEDS: SOLU-MEDROL IV SCH (09:53)
[2018-05-21] MEDS: CORDARONE FT SCH (09:53)
[2018-05-21] MEDS: LEVOPHED 8 MG in D5 1/2 NS 250 ML IV SCH (14:06)
[2018-05-21] MEDS: NS 500 ML IV SCH (16:25)
--- NOTE | 2018-05-21 17:57 | PROGRESS NOTE ---
DATE: 05/21/2018 SUBJECTIVE: Mr. Page has an ileus. His GI output has improved. The abdomen is less distended and much more soft. He remains in atrial fibrillation. Heart rate is in the 80s and 90s. He is breathing more comfortably. He is on a high-flow nasal cannula with an FiO2 of 60%. Arterial blood gases demonstrated pH 7.43, pO2 of 99, pCO2 of 53, O2 saturation 100%. He is still requiring low-dose pressors. OBJECTIVE: Vital Signs: He is afebrile, pulse 90, respirations 21, BP 94/42. CV: Irregularly irregular. Lungs: Crackles in the bases bilaterally. Abdomen: Soft. Good bowel sounds. No rebound or guarding. ASSESSMENT AND PLAN: 1. Ileus. The GI function is improved. He has much less output via the NG tube. He is having more output via the ileostomy. We will stop the Clinimix and begin Nupro at 10 mL/hour and titrate upward as indicated. 2. Chronic atrial fibrillation. He remains in atrial fibrillation. His heart rate is stable. We will continue amiodarone. 3. Chronic respiratory failure with hypoxia secondary to gram-negative pneumonia. We will continue DuoNeb nebulizer treatments, IV Zosyn and high-flow nasal cannula oxygen. We will try to wean him off pressors. cc: Laura Jennings MD
--- NOTE | 2018-05-21 19:46 | GENERAL SURGERY PROGRESS NOTE ---
DATE: 05/21/2018 SUBJECTIVE: Clinically about the same. His ileostomy output is increasing. NG tube output has been minimal. I reviewed his labs and chest x-ray. Abdomen is soft. Ostomy is pink with viable stool in the bag. ASSESSMENT AND PLAN: A 78-year-old gentleman with ileus; seems somewhat improved. Will resume tube feeds today at a trophic rate after confirming his nasogastric tube is in good place. cc: MD Laura Easley MD
[2018-05-22] MEDS: REGLAN IV SCH ×4 (03:11→20:00)
[2018-05-22] MEDS: CLINIMIX E 4.25%-5% SOLUTION 1,000 ML IV SCH (03:11)
[2018-05-22] MEDS: ZOSYN 3.375 GM in NS 50 ML IV SCH ×4 (03:11→20:00)
[2018-05-22] MEDS: DUONEB (A & A) INH SCH ×6 (03:46→23:35)
[2018-05-22 04:31] LABS: ALLEN TEST YES; BE 10.4 mmoll (-3.0-3.0); BLOOD TYPE ARTERIAL; METHB 1.1 % (0.0-1.5); O2(CT) 13.4 mL/dL (15.0-23.0); PO2(98.6) 77 mmHg (60-100); SAMPLE BLOOD; SAO2 97.5 % (95.0-100.0); pH(98.6) 7.37 (7.35-7.45)
[2018-05-22 04:41] LABS: MODALITY HIGH FLOW NASAL CAN; PCO2(98.6) 65 mmHg (35-45)
[2018-05-22] MEDS: PROTONIX IV SCH (05:40)
[2018-05-22] MEDS: LOVENOX SUBQ SCH (05:40)
[2018-05-22 06:15] LABS: AGAP 8; ALB/GLOB RATIO 1.1; ALBUMIN 2.6 g/dL (3.5-5.0); ALKALINE PHOSPHATASE 109 U/L (32-122); BUN 35 mg/dL (8-22); CALCIUM 8.5 mg/dL (8.8-10.2); CHLORIDE 100 mmol/L (98-107); COSMO 292; CREATININE 0.3 mg/dL (0.7-1.2); ESTIMATED GFR > 60; GLUCOSE 147 mg/dL (70-104); GOT 20 U/L (10-34); GPT 44 U/L (10-44); POTASSIUM 4.1 mmol/L (3.5-5.1); SODIUM 141 mmol/L (136-145); TCO2 33 mmol/L (25-35); TOTAL BILIRUBIN 0.28 mg/dL (0.20-1.00)
[2018-05-22 06:16] LABS: BASO# 0.01 X1000 (0.0-0.2); BASO% 0.1 % (0.0-0.8); EOS# 0.03 X1000 (0.0-0.7); EOS% 0.2 % (0.0-10.0); HEMOGLOBIN 9.6 g/dL (14.0-18.0); IMM GRAN# 0.03 X1000 (0.0-0.04); IMM GRAN% 0.2 % (0.0-0.5); LYMPH# 0.74 X1000 (1.2-3.4); LYMPH% 4.9 % (20.5-51.1); MCH 28.8 PG (27-31); MCV 93.1 FL (81-99); MONO# 0.94 X1000 (0.11-0.59); MONO% 6.2 % (1.7-9.3); MPV 11.3 FL (7.4-10.4); NEUT# 13.35 X1000 (1.4-6.5); NEUT% 88.4 % (42.2-75.2); PLT 286 X1000 (130-400); RBC 3.33 XMIL (4.7-6.1); RDW 14.6 % (11.5-14.5)
--- NOTE | 2018-05-22 07:27 | Diag Imaging Result Doc PS360 ---
EXAM: CHEST-PORTABLE 05/22/2018 HISTORY: respiratory failure TECHNIQUE: AP portable at 0539 COMMENT: The inspiration is markedly suboptimal. There is an NG tube with its tip below the diaphragm. There is a large amount of colonic gas under the right hemidiaphragm. There is bibasilar atelectasis. Opacification of the left base has improved since 05/21/2018. IMPRESSION: Improved atelectasis and/or pneumonia. Electronically signed by Lan Robin 05/22/2018 7:25 AM
[2018-05-22] MEDS: MUCOMYST 20% INH SCH ×2 (08:15→19:36)
[2018-05-22] MEDS: ASPIRIN NG SCH (08:18)
[2018-05-22] MEDS: SOLU-MEDROL IV SCH (08:18)
[2018-05-22] MEDS: LASIX IV SCH (08:18)
[2018-05-22] MEDS: CORDARONE FT SCH (08:18)
[2018-05-22] MEDS: LEVOPHED 8 MG in D5 1/2 NS 250 ML IV SCH (10:44)
--- NOTE | 2018-05-22 14:13 | DISCHARGE SUMMARY ---
ADMISSION DATE: 04/27/2018 DISCHARGE DATE: 05/22/2018 DISCHARGE DIAGNOSES: 1. Acute respiratory failure with hypoxia secondary to aspiration pneumonia requiring mechanical ventilation. 2. Acute on chronic congestive heart failure secondary to systolic dysfunction. 3. Atrial fibrillation with rapid ventricular response. 4. Acute respiratory failure with hypercapnia requiring BiPAP. 5. Gram-negative pneumonia (cultures grew out Klebsiella pneumoniae). 6. Ischemic heart disease. 7. Severe protein calorie malnutrition. 8. 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 9. No code blue level 1. 10. Chronic hypotension requiring pressors. 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 12. Ileus. DISCHARGE PHYSICAL EXAMINATION: This is a chronically ill 79-year-old gentleman. He is awake and easily arousable. He answers questions appropriately. He carries on an appropriate conversation. Vital signs: Blood pressure 92/48, pulse is 90 and irregular, respiratory rate 22. HEENT: Fundi with arteriolar wall thickening. Pupils equal, round, reactive to light. Extraocular eye movements intact. TMs without bullae. Neck: Supple. No masses, JVD or bruits. Cardiovascular: Irregularly irregular. Lungs: Faint crackles in the bases bilaterally. Abdomen: Soft, nontender, with active bowel sounds. Extremities: Without edema. HOSPITAL COURSE: Mr. Page presented to the ER complaining of abdominal pain and intractable nausea and vomiting. A CT scan of the abdomen and pelvis demonstrated a pneumoperitoneum which is chronic as well as a small bowel obstruction. Dr. Anders Luevano was consulted to see the patient. 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 Over the course of the next several weeks he slowly regained bowel function and we started tube feedings. We titrated upward on the tube feedings to a maximum rate of 45 mils per hour. Unfortunately because of the use of BiPAP he developed an ileus. He had high residuals/ The tube feedings were discontinued. He was started on Clinimix an NG tube to low Gomco suction was initiated. With hydration electrolyte replacement and NG tube placement to low Gomco suction the ileus resolved. NG suction was discontinued we resumed Nepro at 10 mils per hour with 10 mils of free water every 4 hours. He was tolerating tube feedings without high residuals. Residuals were in the range of 10 to 15 meals. He was placed on IV Reglan. We will titrate upward on the tube feedings as tolerated. Postoperatively he had increasing respiratory failure and increased work of breathing. He was markedly hypoxic. He had what appeared to be a large infiltrate on the right base. We were concerned that he aspirated. The patient was transferred to the unit where he was intubated. He was continued on DuoNeb nebulizer treatments, and broad-spectrum antibiotics including Zosyn and Levaquin. Dr. Jacob saw him in consultation. He did require a prolonged period of mechanical ventilation and was extubated blood unfortunately required reintubation. He was eventually weaned off of mechanical ventilation. He was switched to BiPAP. We have gradually weaned him down off of the BiPAP. He had been using the BiPAP at night and high-flow nasal cannula oxygen during the day. He did not require BiPAP last night. He had periods of hypoxia early this morning and required BiPAP with 2 hours. He is now back on high-flow nasal cannula oxygen and is maintaining saturations in the mid 90s. His initial aspiration pneumonia resolved and he developed additional infiltrates. Sputum cultures grew out Klebsiella pneumoniae. Gammaglobulin levels were low and he was given 2 treatments of IV IgG. His white count has trended down from a high of 34,002 white count of 15,000 this morning. He is currently on intravenous Zosyn. His most recent immunoglobulin levels were within normal limits but in all likelihood, it would be a good idea to repeat the gamma globulins to see if he needs additional gamma globulins. He has a history of chronic congestive heart failure. He had acute on chronic congestive heart failure with systolic dysfunction. His echo demonstrated an EF of 30 to 35 percent. Because of his hypotension requiring pressors we tried to cautiously give him fluids but diurese him on an as needed basis. He did develop new onset atrial fibrillation with RVR. He has not tolerated Rinne axis of or Lopressor because of hypotension. He was loaded with IV amiodarone he remains in atrial fib but his heart rate has been in the 80s and 90s on oral amiodarone. He has a history of severe protein calorie malnutrition. We will continue to titrate upward on the tube feedings as tolerated. I would recommend a dietary consultation for caloric goals Having reached maximum acute hospitalization we felt that he would be an excellent candidate for the long-term acute care unit. He was evaluated and was deemed to be an appropriate candidate for [facility] and was transferred in guarded but stable condition. cc: Laura Jennings MD
--- NOTE | 2018-05-22 18:11 | GENERAL SURGERY PROGRESS NOTE ---
DATE: 05/22/2018 SUBJECTIVE: Clinically about the same. He is back on BiPAP 250 going at a trophic rate. He is tolerating it for now. Ileostomy is functioning. ASSESSMENT AND PLAN: A 78-year-old gentleman with prolonged ICU course. Continue current care, medical management, and it is okay to advance the tube feeds as tolerated. cc: MD Laura Easley MD
[2018-05-23] MEDS: LEVOPHED 8 MG in D5 1/2 NS 250 ML IV SCH (02:52)
[2018-05-23] MEDS: ZOSYN 3.375 GM in NS 50 ML IV SCH (02:58)
[2018-05-23] MEDS: REGLAN IV SCH (02:58)
[2018-05-23] MEDS: DUONEB (A & A) INH SCH (03:35)
[2018-05-23 04:40] LABS: ALLEN TEST YES; BE 11.3 mmoll (-3.0-3.0); BLOOD TYPE ARTERIAL; HCO3-(ACT) 33.8 mmoll (20.0-26.0); O2(CT) 15.1 mL/dL (15.0-23.0); O2HB 97.3 % (95.0-99.0); PO2(98.6) 193 mmHg (60-100); SAMPLE BLOOD; SAO2 99.7 % (95.0-100.0); THB 10.7 g/dL (11.5-17.4); pH(98.6) 7.38 (7.35-7.45)
[2018-05-23 04:41] LABS: MODALITY BI PAP; PCO2(98.6) 65 mmHg (35-45)
[2018-05-23] MEDS: LOVENOX SUBQ SCH (05:00)
[2018-05-23] MEDS: PROTONIX IV SCH (05:00)
[2018-05-23 06:18] VITALS: BP 111/52
[2018-05-23 06:44] LABS: BASO# 0.01 X1000 (0.0-0.2); BASO% 0.1 % (0.0-0.8); EOS# 0.05 X1000 (0.0-0.7); EOS% 0.4 % (0.0-10.0); HEMOGLOBIN 10.3 g/dL (14.0-18.0); IMM GRAN# 0.03 X1000 (0.0-0.04); IMM GRAN% 0.2 % (0.0-0.5); LYMPH# 0.72 X1000 (1.2-3.4); LYMPH% 5.8 % (20.5-51.1); MCH 28.9 PG (27-31); MCHC 31.2 g/dL (33-37); MCV 92.7 FL (81-99); MONO# 0.76 X1000 (0.11-0.59); MONO% 6.1 % (1.7-9.3); MPV 11.5 FL (7.4-10.4); NEUT# 10.86 X1000 (1.4-6.5); NEUT% 87.4 % (42.2-75.2); PLT 322 X1000 (130-400); RBC 3.56 XMIL (4.7-6.1); RDW 14.9 % (11.5-14.5); WBC 12.43 X1000 (4.8-10.8)
[2018-05-23 07:01] LABS: AGAP 7; ALBUMIN 2.7 g/dL (3.5-5.0); ALKALINE PHOSPHATASE 118 U/L (32-122); BUN 32 mg/dL (8-22); CALCIUM 8.7 mg/dL (8.8-10.2); CHLORIDE 97 mmol/L (98-107); COSMO 283; CREATININE 0.3 mg/dL (0.7-1.2); ESTIMATED GFR > 60; GLUCOSE 138 mg/dL (70-104); GOT 25 U/L (10-34); GPT 52 U/L (10-44); POTASSIUM 4.1 mmol/L (3.5-5.1); SODIUM 137 mmol/L (136-145); TCO2 33 mmol/L (25-35); TOTAL BILIRUBIN 0.32 mg/dL (0.20-1.00); TOTAL PROTEIN 5.4 g/dL (6.3-8.3)
[2018-05-23 07:10] LABS: LYMPHS 14 % (21-51); MONO 6 % (1-9); SEGS 80 % (42-75)
[2018-05-23 07:11] LABS: ANISOCYTOSIS OCCASIONAL; HYPOCHROM OCCASIONAL
== END 2018-05-23 06:05 | DRG 329 ==
LOC: ED 23:07 → ICU 04-27 09:24
PROVIDERS: ADMIT Internal Medicine; ATTEND Internal Medicine
CPT/HCPCS: 36569; 51702; 71010; 71045; 71250; 73020; 73030; 73080; 73521; 74000; 74018; 74019; 74020; 74177; 80048; 80053; 81001; 82533; 82550; 82784; 82805; 83605; 83690; 83735; 83880; 84100; 84134; 84484; 85025; 85610; 85730; 86850; 86900; 86901; 87040; 87070; 87077; 87186; 87205; 87275; 87276; 87804; 88304; 88307; 89220; 93005; 93010; 93306; 94002; 94003; 94640; 94660; 94761; 96365; 96367; 96375; 99285; A9270; C9113; J0282; J0330; J0690; J0696; J1561; J1630; J1650; J1940; J2060; J2250; J2270; J2405; J2543; J2765; J2920; J3010; J3475; J3480; J7030; J7040; J7050; J7060; J7070; J7120; P9047; Q9967; S0164